=== PATIENT | female | born 1970 | race Caucasian/White ===

== ENCOUNTER → 2017-12-15 16:56 | Outpatient (CLI) | payer OTHER, SELFPAY ==
[2017-12-15 18:26] LABS: Anion Gap 6 (5-15); BUN 17 mg/dL (7-18); BUN/Creat Ratio 12.5 RATIO (10-20); Calcium,Total 8.7 mg/dL (8.5-10.1); Chloride 103 mmol/L (98-107); Creatinine, Serum 1.36 mg/dL (0.55-1.02); EST Glomerular Filtration Rate 44 mL/min (>60); Est Glom Filt Rate - Afr Amer 53 mL/min (>60); Free T3 2.5 pg/mL (2.18-3.98); Glucose 97 mg/dL (74-106); Magnesium 2.2 mg/dL (1.6-2.6); Potassium 3.9 mmol/L (3.5-5.1); Sodium Level 136 mmol/L (136-145)
== END ==
PROVIDERS: Family Provider Internal Medicine; PCP Internal Medicine; Visit Provider Internal Medicine
DX: E23.0 Hypopituitarism (principal); R20.9 Unspecified disturbances of skin sensation
CPT/HCPCS: 80048; 83735; 84439; 84481

== ENCOUNTER → 2018-09-11 15:46 | Outpatient (CLI) | payer OTHER, SELFPAY ==
[2016-11-05 15:14] VITALS: BMI 22.4
--- NOTE | 2018-09-11 15:51 | RAD_ITS ---
STUDY: X-RAY CHEST REASON FOR EXAM: Female, 48 years old. Shortness of breath TECHNIQUE: PA and lateral views of the chest. COMPARISON: None. FINDINGS: There is hyperinflation of the lungs consistent with chronic obstructive lung disease (COPD). There is no demonstrated pleural abnormality. Normal size heart. Normal mediastinum and zaire. Normal visualized pulmonary arteries. Normal visualized aortic arch and descending thoracic aorta. Normal visualized thoracic spine. Normal visualized ribs, clavicles, and shoulders. There is no demonstrated abnormality of the visualized soft tissue structures of the upper abdomen. RAD/Chest PA and Lateral IMPRESSION: Findings suggestive of COPD. No acute cardiopulmonary disease process is noted. Electronically Signed: Keith Mondragon MD at 16:16 EST , Service support ,
--- OUTSIDE RECORDS SUMMARY | 2018-11-16 05:36 | XMS RPT_ITS | Continuity of Care Document ---
:1970 Author Organization [facility] Address [address] [facility] [address] [place] [address] Phone Care Team Providers Name Role Phone Galileo GARCIA, Shanika Goldstein Unavailable Joy Sandra Unavailable Valentin Pérez Unavailable Dafne Vail Unavailable JUANA Griffin Unavailable Unavailable Latrice Sharma Unavailable Unavailable Lloyd Zuniga Unavailable Unavailable Mattie Newell Unavailable Unavailable Mckenzie Cobian Unavailable Unavailable Unavailable Unavailable Problems Name Dates Details Alterations of sensations (R20.9, 782.0) Comments: whole body numbness. Status: Active Anemia (D64.9, 285.9) Status: Active Anxiety (F41.9, 300.00) Comments: increase Wellbutrin helped at this pint. not think need to add SSRI right now anxiety controlled. not ready to see counselor. Status: Active Dehydration (E86.0, 276.51) Comments: working outside, not drink, she also takes watr pill probably more than needs because worry about weight Status: Active Deliveries (Parity) Comments: 1 Status: Active Depressive disorder (F32.9, 311) Comments: wellbutrin stable gdoing well Status: Active Encounter for screening mammogram for malignant neoplasm of breast (Z12.31, V76.12) Status: Active Headache in front of head (R51, 784.0) Comments: better now Status: Active History of bulimia (Z86.59, V11.8) Status: Active History of multiple sclerosis (Z86.69, V12.49) Status: Active Other specified cardiac dysrhythmias (I49.8, 427.89) Status: Active Other speech disturbance (R47.89, 784.59) Comments: now better. 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 olive boyd labs done recently good. and will follow up with him. Status: Active Pregnancies () Comments: 1 Status: Active Renal insufficiency (N28.9, 593.9) Comments: from water pill better due recheck Status: Active SOB (shortness of breath) (R06.02, 786.05) Status: Active Stye (H00.019, 373.11) Status: Active Unspecified Diagnosis Status: Active Unspecified Diagnosis Status: Active Weakness (R53.1, 780.79) Status: Active Medications Name Dates Details Aranelle 0.5/1/0.5-35 MG-MCG Oral Tablet uad Tablet qd for 90 days Quantity: 3 {Package} Refills: 3 Ordered:15-Jul-2018 Anjum NUR Nava Start : 15-Jul-2018 Active CORTEF, 5MG (PO Tab) 2 in am 1/2 at hs Tablet uad for 0 days Quantity: 90 {Tablet} Refills: 3 Ordered:21-Apr-2007 JUANA Griffin Start : 21-Apr-2007 Active Comments:FARZAD no generics please HydroCHLOROthiazide 25 MG Oral Tablet 1 (one) Tablet QOD prn for 0 days Quantity: 40 {Tablet} Refills: 1 Ordered:11-Aug-2018 Galileo GARCIA, Shanika Vasquez MD Start : 11-Aug-2018 Active POTASSIUM CHLORIDE ER, 20MEQ (Oral Tablet Extended Release) 1 (one) Tablet ER Tablet ER daily for 2 weeks then prn with hctz for 0 days Quantity: 30 {Tablet} Refills: 3 Ordered:24-Jun-2014 Halima Gonzales LPN Start : 24-Jun-2014 Active Synthroid 88 MCG Oral Tablet 1 Tablet qd for 0 days Quantity: 90 {Tablet} Refills: 3 Ordered:11-Sep-2017 Galileo GARCIA, Shanika Vasquez MD Start : 11-Sep-2017 Active Dispense as Written Valtrex 1 GM Oral Tablet 1 (one) Tablet Tablet bid for 5 days for 0 days Quantity: 10 {Tablet} Refills: 3 Ordered:17-Feb-2017 Shanika Peralta MD, MD, Dana M Start : 17-Feb-2017 Active Wellbutrin XL 150 MG Oral Tablet Extended Release 24 Hour 1 (one) Tablet qd for 0 days Quantity: 90 {Tablet} Refills: 1 Ordered:11-Aug-2018 Shanika Peralta MD, MD, Dana M Start : 11-Aug-2018 Active Wellbutrin XL 300 MG Oral Tablet Extended Release 24 Hour 1 Tablet ER 24HR qd for 0 days Quantity: 90 {Tablet} Refills: 1 Ordered:11-Aug-2018 Shanika Peralta MD, MD, Dana M Start : 11-Aug-2018 Active Zithromax Z-Elmer 250 MG Oral Tablet 1 (one) Tablet as directed for 0 days Quantity: 1 {Package} Refills: 0 Ordered:27-Jan-2018 Lloyd Zuniga Start : 27-Jan-2018 Active Astepro 0.15 % Nasal Solution 1 (one) Solution 1 sopray each nostril daily for 0 days Quantity: 1 {Each} Refills: 2 Ordered:18-Mar-2017 JUANA Griffin Start : 07-Jun-2016 End : 18-Mar-2017 Inactive ATIVAN, 0.5MG (Oral Tablet) 1 q 6 hours prn for 0 days Refills: 0 Ordered:02-Oct-2010 JUANA Griffin End : 02-Oct-2010 Inactive BETAMETHASONE VALERATE, 0.1% (External Cream) apply to affected areas Cream as needed for 0 days Refills: 3 Ordered:13-Apr-2007 JUANA Griffin Start : 13-Apr-2007 End : 10-Jul-2009 Inactive Comments:Medication taken as needed. dispense 45 grams BIAXIN XL PAC, 500MG (Oral Tablet Extended Release 24 Hour) 2 (two) Tablet daily for infection for 14 days Quantity: 28 {Tablet_ER_24HR} Refills: 0 Ordered:16-Nov-2012 Shanika Peralta MD, MD, Dana M Start : 16-Aug-2012 End : 30-Aug-2012 Inactive CHERATUSSIN AC, 100-10MG/5ML (Oral Solution) 1 (one) Teaspoon qhs prn for 0 days Quantity: 6 {Ounce} Refills: 0 Ordered:09-Jun-2015 JUANA Griffin Start : 28-Nov-2014 End : 09-Jun-2015 Inactive CIPRO, 500MG (Oral Tablet) 1 (one) Tablet BID for 0 days Quantity: 14 {Tablet} Refills: 0 Ordered:03-Mar-2009 JAUNA Griffin Start : 03-Mar-2009 End : 10-Jul-2009 Inactive Denavir 1 % External Cream uad Cream prn for 0 days Quantity: 1 {Cream} Refills: 4 Ordered:18-Mar-2017 JUANA Griffin Start : 11-Jul-2016 End : 18-Mar-2017 Inactive Famciclovir 500 MG Oral Tablet 1 (one) Tablet Every 8 hours for 5 days Quantity: 15 {Tablet} Refills: 0 Ordered:08-Jul-2016 Shanika Peralta MD, MD, Shanika Goldstein Start : 08-Jul-2016 End : 13-Jul-2016 Inactive KEFLEX, 500MG (Oral Capsule) 1 (one) Capsule three times daily for 10 days Quantity: 30 {Capsule} Refills: 0 Ordered:24-Feb-2012 Shanika Peralta MD, MD, Shanika Goldstein Start : 11-Nov-2011 End : 21-Nov-2011 Inactive JACLYN, 0.5/1/0.5-35MG-MCG (Oral Tablet) 1 Tablet qd as directed for 0 days Quantity: 1 {Package} Refills: 0 Ordered:24-Jun-2014 JUANA Griffin Start : 02-Jul-2013 End : 24-Jun-2014 Inactive LEVAQUIN, 500MG (Oral Tablet) 1 (one) Tablet Daily for 10 days Quantity: 10 {Tablet} Refills: 0 Ordered:15-Oct-2007 Jessie Corbin CNP Start : 15-Oct-2007 End : 06-Nov-2007 Inactive LEVAQUIN, 750MG (Oral Tablet) 1 Tablet qd for 0 days Quantity: 5 {Tablet} Refills: 0 Ordered:30-May-2014 JUANA Griffin Start : 21-Aug-2011 End : 30-May-2014 Inactive MOTRIN, 600MG (Oral Tablet) 1 Tablet tid/prn for 0 days Quantity: 30 {Tablet} Refills: 0 Ordered:13-Aug-2007 JUANA Griffin Start : 13-Aug-2007 End : 10-Jul-2009 Inactive NASACORT AQ, 55MCG/ACT (Nasal Aerosol Solution) 2 (two) Aerosol Soln Daily for 0 days Quantity: 1 {Aerosol_Soln} Refills: 3 Ordered:02-Oct-2010 JUANA Griffin Start : 30-Sep-2006 End : 02-Oct-2010 Inactive NORGESTIM-ETH ESTRAD TRIPHASIC, 0.18/0.215/0.25MG-35 MCG (Oral Tablet) 1 Tab qd for 30 days Quantity: 30 {Package(s)} Refills: 3 Ordered:24-Jun-2014 JUANA Griffin Start : 18-Jan-2012 End : 24-Jun-2014 Inactive ProAir HFA 108 (90 Base) MCG/ACT Inhalation Aerosol Solution 1 (one) Puff Puff tid prn for 0 days Quantity: 1 {Inhaler} Refills: 0 Ordered:18-Mar-2017 JUANA Griffin Start : 28-Nov-2014 End : 18-Mar-2017 Inactive PROMETHAZINE HCL, 12.5MG (Oral Tablet) 1 Tablet Every 6 hours for nausea and vomiting for 0 days Quantity: 10 {Tablet} Refills: 0 Ordered:24-Jun-2014 JUANA Griffin Start : 01-Nov-2011 End : 24-Jun-2014 Inactive Saizen 5 MG Injection Solution Reconstituted uad For Solution q hs for 0 days Quantity: 30 {Tablet} Refills: 0 Ordered:18-Mar-2017 JUANA Griffin Start : 24-Jun-2014 End : 18-Mar-2017 Inactive Comments:growth hormone Skelaxin 800 MG Oral Tablet 1 (one) Tablet Tablet every six hours, as needed for 0 days Quantity: 20 {Tablet} Refills: 2 Ordered:18-Mar-2017 JUANA Griffin Start : 02-Apr-2016 End : 18-Mar-2017 Inactive Comments:Medication taken as needed. SKELAXIN, 800MG (Oral Tablet) Tablet TID/PRN for 0 days Refills: 0 Ordered:06-Nov-2006 JUANA Griffin Start : 06-Nov-2006 End : 10-Jul-2009 Inactive TAMIFLU, 75MG (Oral Capsule) 1 (one) Capsule bid for 5 days Quantity: 10 {Capsule} Refills: 0 Ordered:28-Nov-2014 Nava Valero DO Start : 28-Nov-2014 End : 03-Dec-2014 Inactive Tylenol with Codeine #3 300-30 MG Oral Tablet 1 Tablet Tablet 1-2 q6h prn for 0 days Quantity: 20 {Tablet} Refills: 0 Ordered:30-Jul-2016 JUANA Griffin Start : 16-Nov-2012 End : 30-Jul-2016 Inactive Comments:BD called to BMT - see patient message WELLBUTRIN SR, 150MG (Oral Tablet Extended Release 12 Hour) 1 Tablet ER 12HR BID for 0 days Quantity: 60 {Tablet_ER_12HR} Refills: 5 Ordered:30-Sep-2006 Halima Gonzales LPN Start : 30-Sep-2006 End : 13-Apr-2007 Inactive XENICAL, 120MG (Oral Capsule) Capsule 1 (one) Capsule three times daily with food for 30 days Quantity: 90 {Capsule} Refills: 1 Ordered:24-Jun-2014 JUANA Griffin Start : 27-Jan-2014 End : 24-Jun-2014 Inactive XENICAL, 120MG (Oral Capsule) 1 (one) Capsule 1 (one) Capsule three times daily with food prn for 30 days Quantity: 45 {Capsule} Refills: 0 Ordered:17-Dec-2013 Galileo GARCIA, Shanika Mednez MD, Shanika Goldstein Start : 17-Dec-2013 End : 16-Jan-2014 Inactive XENICAL, 120MG (Oral Capsule) Capsule TID/PRN for 0 days Quantity: 90 {Capsule} Refills: 1 Ordered:17-Nov-2006 JUANA Griffin Start : 17-Nov-2006 End : 10-Jul-2009 Inactive XENICAL, 120MG (Oral Capsule) Capsule 1 (one) Capsule three times daily with food for 30 days Quantity: 90 {Capsule} Refills: 1 Ordered:24-Jun-2014 JUANA Griffin Start : 22-Jun-2014 End : 24-Jun-2014 Inactive XENICAL, 120MG (Oral Capsule) Capsule 1 (one) Capsule three times daily with food for 30 days Quantity: 90 {Capsule} Refills: 1 Ordered:24-Jun-2014 JUANA Griffin Start : 16-Dec-2013 End : 24-Jun-2014 Inactive AUGMENTIN, 875-125MG (Oral Tablet) 1 (one) Tablet bid for 14 days Quantity: 28 {Tablet} Refills: 2 Ordered:15-Oct-2007 Jessie Corbin CNP Start : 15-Oct-2007 End : 15-Oct-2007 Discontinued FLEXERIL, 10MG (Oral Tablet) 1 Tablet Tablet q8h prn for 0 days Quantity: 20 {Tablet} Refills: 0 Ordered:18-Mar-2017 Galileo GARCIA, Shanika Mendez MD, Shanika Goldstein Start : 16-Nov-2012 End : 18-Mar-2017 Discontinued Comments:This order discontinued per [facility]. POTASSIUM CHLORIDE BOONE CR, 20MEQ (Oral Tablet Extended Release) 1 (one) Tablet ER take when take water pill for 0 days Quantity: 30 {Tablet_ER} Refills: 4 Ordered:30-Sep-2006 Halima Gonzales LPN Start : 30-Sep-2006 End : 30-Sep-2006 Discontinued TRI-NORINYL (PO Tab) uad qd for 0 days Refills: 0 Ordered:24-Jun-2014 JUANA Griffin End : 24-Jun-2014 Discontinued Comments:This order discontinued per [facility]. Allergies and Adverse Reactions Name Dates Details floroquinalone (Allergy) Status: Active Penicillins (Allergy) Status: Active Comments: ? Past Medical History Name Dates Details Abdominal pain, acute, left lower quadrant (R10.32, 789.04) Comments: had for about 6 months. seen account manager relief, pelvic us good. will need ct scan and colonscopy Status: Inactive as of 31-Jul-2009 Abnormal blood creatinine level (R79.9, 790.99) Status: Inactive as of 18-Mar-2017 Acute sinusitis (J01.90, 461.9) Status: Inactive as of 22-Feb-2009 Bronchitis, acute (J20.9, 466.0) Status: Inactive as of 30-May-2014 Bulimia (F50.2, 307.51) Comments: rare;ly revert back at times. done therapy still body image isseus and works on this. Status: Resolved as of 26-Aug-2017 Chronic sinusitis (J32.9, 473.9) Status: Inactive as of 30-May-2014 Contraceptive management (Z30.9, V25.9) Status: Inactive as of 25-Natanael-2017 Cough (R05, 786.2) Status: Inactive as of 30-Jul-2016 Dizziness (R42, 780.4) Comments: think related c spine tightness could be inner ear. try bonine, no neuro changes told to call if diplopia, bad headache, syncope, unilateral weakness or paresthesia, gait or speech change. if lighthead and nausea more then double cortisone. will treat neck start masssage, heat, nsaids m relx not better then ENG Status: Inactive as of 22-Feb-2009 Dysuria (R30.0, 788.1) Status: Inactive as of 10-Jul-2009 Electrolyte and fluid disorders not elsewhere classified (276.9) Status: Inactive as of 30-Jul-2016 Family history of ischemic heart disease (Z82.49, V17.3) Status: Inactive as of 22-Feb-2009 Fever and chills (R50.9, 780.60) Status: Inactive as of 30-Jul-2016 hematuria- was near cycle- get followua Status: Inactive as of 22-Feb-2009 Hypokalemia (E87.6, 276.8) Comments: use water pill with menses. 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 this has kept her stable and not going back to bulemia. she does not abuse and does otc mvi. 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) Status: Inactive as of 30-May-2014 Sinoatrial node dysfunction (I49.5, 427.81) Comments: related to severe hypoglycemia event 2003 and adreanl crisis no reoccurence Status: Resolved as of 24-Jun-2014 Sinus pain (J34.89, 478.19) Comments: not seem infected will add nsal spray Status: Inactive as of 18-Mar-2017 SINUSITIS, ACUTE NEC (461.8) Status: Inactive as of 30-May-2014 Unspecified convulsions (R56.9, 780.39) Comments: related to adrenal crisis and hypoglycemia Status: Resolved as of 24-Jun-2014 Unspecified Diagnosis Status: Inactive as of 30-May-2014 Unspecified Diagnosis Status: Inactive as of 30-May-2014 Unspecified Diagnosis Status: Inactive as of 18-Mar-2017 Unspecified protein-calorie malnutrition (263.9) Status: Inactive as of 18-Mar-2017 Urinary tract infection, site not specified (N39.0, 599.0) Status: Inactive as of 31-Jul-2009 Visual changes (H53.9, 368.9) Status: Inactive as of 18-Mar-2017 WWV V70.0 tigrover Comments: 8-14 just done. good. cholesterol good -14. tetanus due 2015 Status: Inactive as of 18-Mar-2017 Procedures Date Value Details 11-Sep-2018 Chest PA and Lateral Result: Comments: See Note; NOTES: [facility] Imaging Services [address] [place] [address] Chest PA and Lateral MR#: [id number] Acct: [id number] Name: MELANIE ABRAMS Rep #: [id number] : 1970 F 48 From: Keith Mondragon MD PCP: Shanika Peralta MD Status: REG CLI Study: Chest PA and Lateral Date of Exam: 09/11/18 Exam# [id number] Ordering Dr: Shanika Peralta MD STUDY: X-RAY CHEST REASON FOR EXAM: Female, 48 years old. Shortness of breath TECHNIQUE: PA and lateral views of the chest. COMPARISON: None. FINDINGS: There is hyperinflation of the lungs consistent with chronic obstructive lung disease (COPD). There is no demonstrated pleural abnormality. Normal size heart. Normal mediastinum and zaire. Normal visualized pulmonary arteries. No rmal visualized aortic arch and descending thoracic aorta. Normal visualized thoracic spine. Normal visualized ribs, clavicles, and shoulders. There is no demonstrated abnormality of the visualized so ft tissue structures of the upper abdomen. RAD/Chest PA and Lateral IMPRESSION: Findings suggestive of COPD. No acute cardiopulmonary disease pro cess is noted. Electronically Signed: Keith Mondragon MD at 16:16 EST , Service support , CC: Shanika Peralta MD Political Cartoonist: Signed 26-Nov-2016 Emergency Department Summary Result: Comments: See Note; NOTES: [facility] Medical Records Department [address] [place] [address] Emergency Department Summary MR#: [id number] Acct: [id number] Name: MELANIE ABRAMS Rep #: [id number] : 1970 46 From: Luca Dean MD PCP: Shanika Peralta MD Status: DEP ER DATE OF SERVICE: 11/05/2016 HISTORY OF PRESENT ILLNESS: This is a 46-year-old woman who was sent to the ER because of weakness, paresthesia, and difficulty with speech. She states she has dry mouth. She was sent by her PCP, Dr. Peralta. Onset of symptoms varied. The patient states headache started at 0600, improved and then got worse at 10:00 a.m. The patient reports paresthesia, weakness and slurred speech that started approximately 1300. She presently complains of a headache. She denies any visual, ocul ar or auditory symptoms. She denies any motor weakness or problems with balance. She was sent to the ER for an MRI. PAST MEDICAL HISTORY: Panhypopituitarism. REVIEW OF SYSTEMS: Remarkable for headache , weakness, paresthesia, upper and lower extremity. PHYSICAL EXAMINATION: GENERAL: Remarkable for heart rate of 111. HEENT: Unremarkable. Funduscopic exam is normal with no papilledema and normal cup t o disk ratio. NECK: Supple with no carotid bruits. LUNGS: Clear to auscultation. HEART: Regular. ABDOMEN: Soft, nontender. NEUROLOGIC: She is alert. She is oriented x3. Motor is 5/5. Sensation is intact . DTRs are symmetric at 2+ with no clonus or Babinski. Cerebellar testing was normal. Gait was normal. Romberg test is negative. The patient does seem was somewhat anxious. EMERGENCY DEPARTMENT COURSE: Blood work was obtained and revealed a creatinine of 1.06. Coags normal. MRI was obtained and is normal. Case was discussed with Dr. Peralta. Dr. Peralta saw the patient in the ER. IMPRESSION: 1. Glob al paresthesia. 2. History of hypopituitarism. DISPOSITION: Discharge. MD Miryam Flower C: Shanika Peralta MD T: [facility] JOB: [id number] 11/26/16 1212 <Electronically signed by Luca Dean MD&#62 ; Date Luca Dean MD Cosigner Signature (If Indicated): Date CC: Shanika Peralta MD Date Dictated: 11/26/16 0754 Date Transcribed: 11/26/16753 Political Cartoonist: Signed 15-Nov-2016 Spine Cervical W/WO Contrast Result: Comments: See Note; NOTES: [facility] Imaging Services [address] [place] [address] Verdana 4d Spine Cervical W/WO Contrast MR#: [id number] Acct: [id number] Name: MELANIE ABRAMS Rep #: [id number] : 1970 F 46 From: Charlene Gupta MD PCP: Shanika Peralta MD Status: REG CLI Study: Spine Cervical W/WO Contrast Date of Exam: 11/15/16 Exam# [id number] Ordering Dr: Shanika Peralta MD STUDY: MRI CERVICAL SPINE WITH AND WITHOUT CONTRAST REASON FOR EXAM: Female, 46 years old. Episodes of numbness and tingling with cold feeling in arms. TECHNIQUE: Standardized fat and water weigh tyler pulse sequences were obtained in the sagittal and axial following I.V. administration of 7 ml of Gadavist contrast material. COMPARISON: None FINDINGS: Normal f oramen magnum and brainstem-cervical cord junction. Normal craniovertebral junction. Normal anterior atlantoaxial articulation. Normal odontoid process. There is straightening of the normal cervical lo rdosis. Normal vertebral bodies and posterior osseous elements. C2-3: Normal endplates. Normal disc height, signal and morphology. Normal central canal and intervertebral neural foramina. C3-4: There is a small focal central disc protrusion. Neural foramina are patent. There is no significant central acquired canal stenosis. C4-5: There is narrowing of this disc. There is a focal central disc protr usion which contacts the spinal cord. The left neural foramen is severely narrowed with potential nerve impingement. The right neural foramen is moderately narrowed. There is uncovertebral and facet carlin nt arthropathy. C5-6: There is narrowing of this disc. There is a left central broad disc protrusion. There are severe left-sided neural foraminal narrowing with uncovertebral joint hypertrophy. There is probable left-sided nerve impingement. The right neural foramen is moderately narrowed. There is mild central acquired canal stenosis. C6-7: There is narrowing of this disc. There is a mild disc bul ge and osteophyte complex. There is moderate bilateral neural foraminal narrowing with potential nerve impingement at the neural foramina at this level. There is no significant central acquired canal st enosis. C7-T1: Normal endplates. Normal disc height, signal and morphology. Normal central canal and intervertebral neural foramina. Normal cervical cord. There is no demonstrated cervical cord syrinx cavity. Normal visualized soft tissue structures. MRI/Spine Cervical W/WO Contrast IMPRESSION: Multilevel degenerative disc disease and degener ative arthropathy of the cervical spine with acquired canal stenosis, neural foraminal narrowing and potential nerve impingement, as described. Electronically Signed: Charlene Gupta MD at 18:0 6 EDT , Service support [phone], CC: Shanika Peralta MD Political Cartoonist: Signed 05-Nov-2016 Discharge Instruction Result: Comments: See Note; NOTES: [facility] Medical Records Department [address] [place] [address] Discharge Instruction 11/05/16 1749 MR#: [id number] Acct: [id number] Name: Mara ABRAMS Rep #: [id number] : 1970 46 From: Luca Dean MD PCP: Shanika Peralta MD Status: REG ER ED Disposition - Plan for ED Patient: Disposition: Home or Assisted Living Chief Complaint: Numb/Tin g Instructions: ED Paraesthesias Referrals: Shanika Peralta MD [Primary Care Provider] - 1 Week What to do if you have Problems For any increased pain, shortness of breath, bleeding, nausea or vomitin g, chest pain, or any unexpected problems, contact your Primary Care Provider. Call [facility] ([phone]) or report to the closest Emergency Room. Call 911 if necessary. 11/05/16 1751 &# 60;Electronically signed by Luca Dean MD> Date Luca Dean MD Cosigner Signature (If Indicated): Date CC: Shanika Peralta MD 05-Nov-2016 Brain W/WO Contrast Result: Comments: See Note; NOTES: [facility] Imaging Services [address] [place] [address] Verdana 4d Brain W/WO Contrast MR#: [id number] Acct: [id number] Name: MELANIE ABRAMS Rep #: [id number] : 1970 F 46 From: Anne Love MD PCP: Shanika Peralta MD Status: REG ER Study: Brain W/WO Contrast Date of Exam: 11/05/16 Exam# [id number] Ordering Dr: Luca Dean MD STUDY: MRI BRAI N WITH AND WITHOUT CONTRAST REASON FOR EXAM: Female, 46 years old. Right arm numbness since noon today. Prior pituitary tumor removed TECHNIQUE: Standardized multiplanar fat and water weighted pulse s equences were obtained. 5 ml of Gadavist contrast material was administered intravenously for the contrast portion of the examination. COMPARISON: None. FINDINGS: N ormal size of the ventricles and extra-axial spaces for the patient's age. Normal white matter tracts of the supratentorial brain. Normal bilateral basal ganglia. Normal thalami. There is no extra-axia l fluid accumulation. Normal flow voids within the major intracranial circulation suggesting patency by spin echo criteria. Normal venous enhancement. There is no enhancing intra-axial or extra-axial a bnormality. There is flattening of the pituitary gland consistent with prior surgery. Normal infundibular stalk, hypothalamus, and optic chiasm. Normal tectal plate and pineal gland. Normal midbrain, sabrina and medulla. Normal cerebellum. Normal basal cisterns. Normal bilateral temporal bones. Normal bilateral internal auditory canals. No demonstrated orbital abnormality, within the constraints of a routine brain study. Normal visualized paranasal sinuses. Normal calvarium and skull base. Normal visualized soft tissue structures. Normal visualized upper cervical spine. MRI/Brain W/WO Contrast IMPRESSION: Postsurgical changes in the pituitary gland. There is no evidence of recent ischemic lesion. There is no intracranial hemorrhage. Electro nically Signed: Anne Love MD at 17:22 EDT Tel , Service support [phone], CC: Shanika Peralta MD; Luca Dean MD Political Cartoonist: Signed 27-Sep-2016 Discharge Instruction Result: Comments: See Note; NOTES: [facility] Medical Records Department [address] [place] [address] Discharge Instruction 07/29/16 0144 MR#: [id number] Acct: [id number] Name: Mara ABRAMS Rep #: [id number] : 1970 46 From: Yahir Green MD PCP: Shanika Peralta MD Status: [facility] ER ED Disposition - Plan for ED Patient: Disposition: Home or Assisted Living Chief Complaint: Abd Pain Instructions: ED Abdominal Pain Unkn Cause, ED Food Poison Or Gastroenteritis Prescriptions: Ondansetron [Zofran Odt] 4 mg PO Q8H PRN PRN #7 tablet PRN Reason: Nausea Referrals: Shanika Peralta MD [ Primary Care Provider] - What to do if you have Problems For any increased pain, shortness of breath, bleeding, nausea or vomiting, chest pain, or any unexpected problems, contact your Primary Care Provider. Call [facility] ([phone]) or report to the closest Emergency Room. Call 911 if necessary. 09/27/16 0808 <Electronically signed by Yahir Green MD> Date __ Yahir Green MD Cosigner Signature (If Indicated): Date CC: Shanika Peralta MD 27-Sep-2016 Emergency Department Summary Result: Comments: See Note; NOTES: [facility] Medical Records Department [address] [place] [id number] Emergency Department Summary MR#: [id number] Acct: [id number] Name: MELANIE ABRAMS Rep #: [id number] : 1970 46 From: Yahir Green MD PCP: Shanika Peralta MD Status: [facility] ER DATE OF SERVICE: 07/29/2016 CHIEF COMPLAINT: Nausea, vomiting, epigastric abdominal discomfort. HIST ORY OF PRESENT ILLNESS: This 46-year-old female had a meal of fish, a salad etc. had similar. He denied the salad. She became acutely ill about 1-2 hours after eating, around 8 p.m. started havi ng epigastric pain, nausea, vomiting, no diarrhea, no melena, no hematemesis, has not been having any food intolerances lately or abdominal pain when she eats. Denies any prior abdominal surgeries. PHY SICAL EXAMINATION: GENERAL: A middle-aged white female. VITAL SIGNS: Stable, afebrile, does not look septic or toxic, no acute distress. HEENT: Unremarkable. NECK: Nontender. LUNGS: Clear, equal, symmet rical bilaterally. HEART: Regular rhythm. No murmur. ABDOMEN: Soft, mild epigastric tenderness. No rebound, guarding or rigidity. Normal bowel sounds. No peritoneal signs. No hernias or masses. Nondiste nded. No signs of obstruction. Both the right upper quadrant and right lower quadrants are completely nontender. There is no Herrera sign nor any McBurney's point tenderness. No peritoneal signs. EXTREMI TIES, BACK, SKIN, NEUROLOGIC: Unremarkable. A 46-year-old female with abdominal pain, nausea, vomiting, question is food poisoning versus gastroenteritis versus other. Labs, white count came back elev ated at 14.9, H and H 14 and 40, no bands. Electrolytes were unremarkable. Potassium of 3.3, normal gap. Creatinine of 1.3. Liver enzymes were normal. Lipase was normal. Repeat exam, she was treated wit h IV fluids, Zofran and Toradol, was still having some epigastric discomfort, was given Pepcid and GI cocktail. On repeat exam, she is doing much better currently at 0240. Abdomen is nontender without p eritoneal signs. She and I had a long discussion on food poisoning versus gastroenteritis versus the possibility of this being a new onset of gallbladder disease. IMPRESSION: 1. Abdominal pain, uncerta in etiology. 2. Nausea and vomiting secondary to either viral syndrome or food poisoning. PLAN: She will be discharged to home with Zofran for home. Return if worse and follow up with her primary care physician. MD Miryam Salcido C: Shanika Peralta MD T: NTS JOB: [id number] 09/27/16 0808 <Electronically signed by Yahir Green MD> Date ___ Yahir Green MD Cosigner Signature (If Indicated): Date CC: Shanika Peralta MD Date Dictated: 07/29/16238 Date Transcribed: 07/29/16238 Political Cartoonist: Signed 14-Jun-2016 Brain W/WO Contrast Result: Comments: See Note; NOTES: [facility] Imaging Services [address] [place] [address] Verdana 4d Brain W/WO Contrast MR#: [id number] Acct: [id number] Name: MELANIE ABRAMS Rep # : [id number] : 1970 F 46 From: Donis Kent MD PCP: Shanika Peralta MD Status: REG CLI Study: Brain W/WO Contrast Date of Exam: 06/14/16 Exam# [id number] Ordering Dr: Shanika Peralta MD STUDY: MR I BRAIN WITH AND WITHOUT CONTRAST REASON FOR EXAM: Female, 46 years old. Altered sensation along the eyes x1 week TECHNIQUE: Standardized multiplanar fat and water weighted pulse sequences were obtain ed. 6 ml of Gadavist contrast material was administered intravenously for the contrast portion of the examination. COMPARISON: None. FINDINGS: Normal size of the ve ntricles and extra-axial spaces for the patient's age. Normal white matter tracts of the supratentorial brain. Normal bilateral basal ganglia. Normal thalami. There is no extra-axial fluid accumulation . Normal flow voids within the major intracranial circulation suggesting patency by spin echo criteria. Normal venous enhancement. There is no enhancing intra- axial or extra-axial abnormality. Normal sella turcica, pituitary gland, infundibular stalk, optic chiasm and hypothalamus. Normal tectal plate and pineal gland. Normal midbrain, sabrina and medulla. Normal cerebellum. Normal basal cisterns. Nor mal bilateral temporal bones. Normal bilateral internal auditory canals. No demonstrated orbital abnormality, within the constraints of a routine brain study. Normal visualized paranasal sinuses. Gertrudis l calvarium and skull base. Normal visualized soft tissue structures. Normal visualized upper cervical spine. MRI/Brain W/WO Contrast IMPRESSION : Normal unenhanced and enhanced MRI of the brain. Electronically Signed: Donis Kent MD at 16:13 EDT , Service support [phone], CC: Shanika Peralta MD Political Cartoonist: Signed Family History Unknown Family Member Name Dates Details Family Members In General Comments: Thyroid disease Status: Active Social History Name Dates Details Alcohol Use Status: Active Caffeine Use Comments: rare cup coffee 2 x weekly Status: Active Current Work/Study Status Status: Active Exercise History Comments: Light Status: Active Living Situation Comments: Lives with spouse, Status: Active No Drug Use Status: Active Non Smoker/No Tobacco Use Status: Active Number of Child (age 0-17) Dependents Comments: 1 Status: Active Vital Signs Date Test Result Details :13 Temperature 97.9 f Comments: Method: Temporal Pulse 94 /min Comments: Pattern: Regular Respiration Rate 18 /min Comments: Pattern: Unlabored O2 SAT 98 % Comments: Room air BP Systolic 94 mm[Hg] Comments: Patient Position: Sitting; Cuff Location: Left Arm; Cuff Size: Standard BP Diastolic 60 mm[Hg] Comments: Patient Position: Sitting; Cuff Location: Left Arm; Cuff Size: Standard Weight 124 lb Height 60 in Body Mass Index Calculated 24.22 kg/m2 Body Surface Area Calculated 1.52 m2 :03 Temperature 97.6 f Comments: Method: Temporal Pulse 70 /min Comments: Pattern: Regular Respiration Rate 20 /min Comments: Pattern: Unlabored O2 SAT 98 % Comments: Room air BP Systolic 116 mm[Hg] Comments: Patient Position: Sitting; Cuff Location: Left Arm; Cuff Size: Standard BP Diastolic 74 mm[Hg] Comments: Patient Position: Sitting; Cuff Location: Left Arm; Cuff Size: Standard Weight 124 lb Height 60 in Body Mass Index Calculated 24.22 kg/m2 Body Surface Area Calculated 1.52 m2 [id number]-[id number]:16 Temperature 98.3 f Comments: Method: Tympanic Pulse 110 /min Comments: Pattern: Regular Respiration Rate 18 /min Comments: Pattern: Unlabored O2 SAT 95 % Comments: Room air BP Systolic 124 mm[Hg] Comments: Patient Position: Sitting; Cuff Location: Left Arm; Cuff Size: Standard BP Diastolic 82 mm[Hg] Comments: Patient Position: Sitting; Cuff Location: Left Arm; Cuff Size: Standard Weight 124 lb Height 60 in Body Mass Index Calculated 24.22 kg/m2 Body Surface Area Calculated 1.52 m2 :05 Temperature 98.7 f Comments: Method: Oral Pulse 102 /min Comments: Pattern: Regular Respiration Rate 17 /min O2 SAT 97 % Comments: Room air BP Systolic 112 mm[Hg] Comments: Patient Position: Sitting; Cuff Location: Left Arm; Cuff Size: Standard BP Diastolic 72 mm[Hg] Comments: Patient Position: Sitting; Cuff Location: Left Arm; Cuff Size: Standard Weight 124 lb Height 60 in Body Mass Index Calculated 24.22 kg/m2 Body Surface Area Calculated 1.52 m2 :22 Temperature 97.6 f Comments: Method: Temporal Pulse 72 /min Comments: Pattern: Regular Respiration Rate 18 /min Comments: Pattern: Unlabored BP Systolic 110 mm[Hg] Comments: Patient Position: Sitting; Cuff Location: Left Arm; Cuff Size: Standard BP Diastolic 70 mm[Hg] Comments: Patient Position: Sitting; Cuff Location: Left Arm; Cuff Size: Standard Weight 124 lb Height 60 in Body Mass Index Calculated 24.22 kg/m2 Body Surface Area Calculated 1.52 m2 :48 Temperature 97.6 f Comments: Method: Oral Pulse 68 /min Comments: Pattern: Regular Respiration Rate 18 /min Comments: Pattern: Unlabored BP Systolic 112 mm[Hg] Comments: Patient Position: Sitting; Cuff Location: Left Arm; Cuff Size: Standard BP Diastolic 70 mm[Hg] Comments: Patient Position: Sitting; Cuff Location: Left Arm; Cuff Size: Standard Weight 119 lb :44 Pulse 74 /min Comments: Pattern: Regular Respiration Rate 16 /min Comments: Pattern: Unlabored BP Systolic 114 mm[Hg] Comments: Patient Position: Sitting; Cuff Location: Left Arm; Cuff Size: Standard BP Diastolic 68 mm[Hg] Comments: Patient Position: Sitting; Cuff Location: Left Arm; Cuff Size: Standard Weight 0 lb Height 0 in Head Circumference 0.00 cm :51 Temperature 97.1 f Comments: Method: Oral Pulse 78 /min Comments: Pattern: Regular Respiration Rate 18 /min Comments: Pattern: Unlabored O2 SAT 99 % Comments: Room air BP Systolic 116 mm[Hg] Comments: Patient Position: Sitting; Cuff Location: Left Arm; Cuff Size: Standard BP Diastolic 76 mm[Hg] Comments: Patient Position: Sitting; Cuff Location: Left Arm; Cuff Size: Standard Weight 116 lb Height 0 in Head Circumference 0.00 cm :21 Temperature 97.7 f Comments: Method: Oral Pulse 74 /min Comments: Pattern: Regular Respiration Rate 20 /min Comments: Pattern: Unlabored BP Systolic 114 mm[Hg] Comments: Patient Position: Sitting; Cuff Location: Left Arm; Cuff Size: Standard BP Diastolic 70 mm[Hg] Comments: Patient Position: Sitting; Cuff Location: Left Arm; Cuff Size: Standard Weight 116 lb Height 0 in Head Circumference 0.00 cm :58 BP Systolic 114 mm[Hg] Comments: Patient Position: Supine; Cuff Location: Left Arm; Cuff Size: Standard BP Diastolic 72 mm[Hg] Comments: Patient Position: Supine; Cuff Location: Left Arm; Cuff Size: Standard Weight 0 lb Height 0 in Head Circumference 0.00 cm :57 Pulse 96 /min Comments: Pattern: Regular BP Systolic 100 mm[Hg] Comments: Patient Position: Sitting; Cuff Location: Left Arm; Cuff Size: Standard BP Diastolic 70 mm[Hg] Comments: Patient Position: Sitting; Cuff Location: Left Arm; Cuff Size: Standard Weight 0 lb Height 0 in Head Circumference 0.00 cm :56 Temperature 98 f Comments: Method: Oral Pulse 100 /min Comments: Pattern: Regular Respiration Rate 16 /min Comments: Pattern: Unlabored BP Systolic 102 mm[Hg] Comments: Patient Position: Standing; Cuff Location: Left Arm; Cuff Size: Standard BP Diastolic 70 mm[Hg] Comments: Patient Position: Standing; Cuff Location: Left Arm; Cuff Size: Standard Weight 0 lb Height 0 in Head Circumference 0.00 cm :25 Temperature 98.1 f Comments: Method: Oral Pulse 88 /min Comments: Pattern: Regular Respiration Rate 16 /min Comments: Pattern: Unlabored BP Systolic 98 mm[Hg] Comments: Patient Position: Sitting; Cuff Location: Left Arm; Cuff Size: Standard BP Diastolic 70 mm[Hg] Comments: Patient Position: Sitting; Cuff Location: Left Arm; Cuff Size: Standard Weight 123.3125 lb Height 0 in Head Circumference 0.00 cm :50 Temperature 98.4 f Comments: Method: Oral Respiration Rate 16 /min Comments: Pattern: Undefined BP Systolic 108 mm[Hg] Comments: Patient Position: Sitting; Cuff Location: Undefined; Cuff Size: Undefined BP Diastolic 62 mm[Hg] Comments: Patient Position: Sitting; Cuff Location: Undefined; Cuff Size: Undefined Weight 0 lb Height 0 in Head Circumference 0.00 cm Results Date Description Value Details :59 Basic Metabolic Profile (BMP) Comments: [facility] [address] [place], [place], [phone] GAP 6 (Normal) Range: 5-15 CO2 27.0 mmol/L (Normal) Range: 21.0-32.0 CL 103 mmol/L (Normal) Range: 98-107 K 3.9 mmol/L (Normal) Range: 3.5-5.1 NA 136 mmol/L (Normal) Range: 136-145 CA 8.7 mg/dL (Normal) Range: 8.5-10.1 BUN/CRE 12.5 {RATIO} (Normal) Range: 10-20 EST GFR - AA 53 mL/min (Abnormal) Comments: GFR Calc EST GFR 44 mL/min (Abnormal) Comments: Non- GFR Calc CREAT,SERUM 1.36 mg/dL (Abnormal) Range: 0.55-1.02 Comments: The validity of the calculated GFR AND GFRAA in patients over70 years has not been determined. Clinical correlation isessential. BUN 17 mg/dL (Normal) Range: 7-18 GLU 97 mg/dL (Normal) Range: 74-106 Comments: Please note revised GLUCOSE reference range byzekwhac49/02/2018. 04-Caf-429120:59 Free T3 Comments: [facility] [address] [place], [place], [phone] FREE T3 2.5 pg/mL (Normal) Range: 2.18-3.98 34-Fdd-303746:59 Magnesium Comments: [facility] [address] [place], [place], [phone]) MG 2.2 mg/dL (Normal) Range: 1.6-2.6 59-Vdj-660461:59 T4 Free Direct Comments: [facility] [address] [place], [place], [phone] T4 FREE DIRECT 1.20 ng/dL (Normal) Range: 0.76-1.46 36-Beu-325791:52 Urinalysis, Office ([id number]) UA - LEUKOCYTE ESTERASE Trace (Normal) UA - NITRITE Negative (Normal) URINE UROBILINGN JOHN TIMED 2 mg/dL (Normal) UA - PROTEIN Negative mg/dL (Normal) UA - PH 7.0 (Normal) UA - BLOOD Hemolyzed Small (Normal) UA - SPECIFIC GRAVITY 1.000 (Normal) UA - KETONES Negative mg/dL (Normal) UA - BILIRUBIN Negative (Normal) UA - GLUCOSE Negative (Normal) 21-Aty-688363:29 CBC WITH MANUAL DIFF (18948) Comments: PATIENT NOT FASTINGPERFORMED BY: [facility] Bpvnae9796 [facility] [id number] Immature Grans (Abs) 0.0 {x10E3/uL} (Normal) Range: 0.0-0.1 Immature Granulocytes 0 % (Normal) Baso (Absolute) 0.0 {x10E3/uL} (Normal) Range: 0.0-0.2 Eos (Absolute) 0.5 {x10E3/uL} (Abnormal) Range: 0.0-0.4 Monocytes(Absolute) 0.6 {x10E3/uL} (Normal) Range: 0.1-0.9 Lymphs (Absolute) 2.4 {x10E3/uL} (Normal) Range: 0.7-3.1 Neutrophils (Absolute) 2.0 {x10E3/uL} (Normal) Range: 1.4-7.0 Basos 1 % (Normal) Eos 8 % (Normal) Monocytes 11 % (Normal) Lymphs 44 % (Normal) Neutrophils 36 % (Normal) Platelets 321 {x10E3/uL} (Normal) Range: 150-379 RDW 13.2 % (Normal) Range: 12.3-15.4 MCHC 33.5 g/dL (Normal) Range: 31.5-35.7 MCH 29.9 pg (Normal) Range: 26.6-33.0 MCV 89 fL (Normal) Range: 79-97 Hematocrit 40.3 % (Normal) Range: 34.0-46.6 Hemoglobin 13.5 g/dL (Normal) Range: 11.1-15.9 RBC 4.52 {x10E6/uL} (Normal) Range: 3.77-5.28 WBC 5.5 {x10E3/uL} (Normal) Range: 3.4-10.8 35-Eak-509077:29 Metabolic Panel, Comprehensive Comments: PATIENT NOT FASTINGPERFORMED BY: [facility]87 [facility] [id number] ([id number]) ALT (SGPT) 12 [iU]/L (Normal) Range: 0-32 AST (SGOT) 18 [iU]/L (Normal) Range: 0-40 Alkaline Phosphatase, S 84 [iU]/L (Normal) Range: 39-117 Bilirubin, Total 0.6 mg/dL (Normal) Range: 0.0-1.2 A/G Ratio 1.4 (Normal) Range: 1.2-2.2 Globulin, Total 2.7 g/dL (Normal) Range: 1.5-4.5 Albumin, Serum 3.8 g/dL (Normal) Range: 3.5-5.5 Protein, Total, Serum 6.5 g/dL (Normal) Range: 6.0-8.5 Calcium, Serum 9.2 mg/dL (Normal) Range: 8.7-10.2 Carbon Dioxide, Total 25 mmol/L (Normal) Range: 18-29 Chloride, Serum 103 mmol/L (Normal) Range: 96-106 Potassium, Serum 4.1 mmol/L (Normal) Range: 3.5-5.2 Sodium, Serum 142 mmol/L (Normal) Range: 134-144 BUN/Creatinine Ratio 14 (Normal) Range: 9-23 eGFR If Africn Am 66 mL/min/1.73 (Normal) eGFR If NonAfricn Am 57 mL/min/1.73 (Abnormal) Creatinine, Serum 1.13 mg/dL (Abnormal) Range: 0.57-1.00 BUN 16 mg/dL (Normal) Range: 6-24 Glucose, Serum 76 mg/dL (Normal) Range: 65-99 :55 TSH (63114) Comments: PATIENT NOT FASTINGPERFORMED BY: [facility]6370 [facility] [id number] TSH 2.170 {uIU/mL} (Normal) Range: 0.450-4.500 :55 T4, FREE (THYROXINE) (35352) Comments: PATIENT NOT FASTINGPERFORMED BY: [facility]6370 [facility] [id number] T4,Free(Direct) 1.71 ng/dL (Normal) Range: 0.82-1.77 :09 Basic Metabolic Profile (BMP) Comments: [facility] [address] [place], [place], [phone] GAP 9 (Normal) Range: 5-15 CO2 27.0 mmol/L (Normal) Range: 21.0-32.0 CL 103 mmol/L (Normal) Range: 98-107 K 3.4 mmol/L (Abnormal) Range: 3.5-5.1 NA 139 mmol/L (Normal) Range: 136-145 CA 8.8 mg/dL (Normal) Range: 8.5-10.1 BUN/CRE 10.6 {RATIO} (Normal) Range: 10-20 EST GFR - AA 66 mL/min (Normal) Comments: GFR Calc EST GFR 55 mL/min (Abnormal) Comments: Non- GFR Calc CREAT,SERUM 1.13 mg/dL (Abnormal) Range: 0.55-1.02 Comments: The validity of the calculated GFR AND GFRAA in patients over70 years has not been determined. Clinical correlation isessential. BUN 12 mg/dL (Normal) Range: 7-18 GLU 77 mg/dL (Normal) Range: 70-110 :09 Magnesium Comments: [facility] [address] [place], [place], [phone](242) MG 2.3 mg/dL (Normal) Range: 1.8-2.4 :09 T4 Free Direct Comments: [facility] [address] [place], [phone] T4 FREE DIRECT 1.55 ng/dL (Abnormal) Range: 0.76-1.46 02-Mvv-150493:09 Thyroid Stim Hormone (TSH) Comments: [facility] [address] [place], [phone] TSH 0.58 {uIU/mL} (Normal) Range: 0.358-3.74 17-Ooy-638543:39 Basic Metabolic Profile (BMP) Comments: 'TROP' Serial specimen #1, #2, #3, or #4: [facility] [address] [place], [phone] GAP 8 (Normal) Range: 5-15 CO2 27.0 mmol/L (Normal) Range: 21.0-32.0 CL 109 mmol/L (Abnormal) Range: 98-107 K 3.5 mmol/L (Normal) Range: 3.5-5.1 NA 144 mmol/L (Normal) Range: 136-145 CA 8.5 mg/dL (Normal) Range: 8.5-10.1 BUN/CRE 10.4 {RATIO} (Normal) Range: 10-20 Estimated CRCL 46.62 ml/min (Normal) EST GFR - AA 71 mL/min (Normal) Comments: GFR Calc EST GFR 59 mL/min (Abnormal) Comments: Non- GFR Calc CREAT,SERUM 1.06 mg/dL (Abnormal) Range: 0.55-1.02 Comments: The validity of the calculated GFR AND GFRAA in patients over70 years has not been determined. Clinical correlation isessential. BUN 11 mg/dL (Normal) Range: 7-18 GLU 91 mg/dL (Normal) Range: 70-110 98-Hes-300621:39 CBC W/Diff, Automated Comments: [facility] [address] [place], [phone] Absolute Lymph 1.39 {X10_3/ul} (Normal) Range: 0.83-4.51 Absolute Neut 3.4 {X10_3/uL} (Normal) Range: 2.0-7.7 IM GRAN % 0.200 % (Normal) Range: 0.0-0.9 Comments: IG% - Immature Granulocytes (promyelocytes, myelocytes andmetamyelocytes) > 1% indicates that a LEFT SHIFT is Present. BASO% 0.6 % (Normal) Range: 0-1 EO% 0.8 % (Normal) Range: 0-5 MONO% 8.3 % (Normal) Range: 0-10 LY% 26.1 % (Normal) Range: 19-41 NEUT% 64.0 % (Normal) Range: 47-70 MPV 9.3 fL (Normal) Range: 6.2-12.0 PLT 309 K/mm3 (Normal) Range: 150-450 RDW SD 43.1 fL (Normal) Range: 35.1-43.9 RDW CV 13.1 % (Normal) Range: 11.6-14.6 MCHC 33.1 {g/gl} (Normal) Range: 32-36 MCH 30.0 pg (Normal) Range: 27.0-32.0 MCV 90.8 fL (Normal) Range: 81-99 HCT 39.3 % (Normal) Range: 37-47 HGB 13.0 g/dL (Normal) Range: 12.0-15.0 RBC 4.33 {M/mm3} (Normal) Range: 4.2-5.4 WBC 5.3 K/mm3 (Normal) Range: 4.4-11.0 :39 Partial Thromboplast Time Comments: [facility] [address] [place], [address] PTT 26.4 s (Normal) Range: 24.1-36.2 :39 Prothrombin Time w/INR Comments: [facility] [address] [place], [address] INR 1.0 (Normal) PROTIME 13.2 s (Normal) Range: 11.7-14.9 :39 Troponin-I Comments: 'TROP' Serial specimen #1, #2, #3, or #4: [facility] [address] [place], [place], [phone] TROPONIN-I < 0.02 ng/mL (Normal) Comments: TROPONIN-I EXPECTED VALUES <0.05 NEGATIVE 0.06 - 0.[address] > OR = 0.[address] 18-Vot-120729:32 Bedside Glucose Comments: [facility] LaboratoryPoint of [address] [place], [place] [address] BEDSIDE GLU 99 mg/dL (Normal) Range: 70-110 Comments: MANAGEMENT OF PATIENT CARE PER NURSING PROTOCOL :15 Basic Metabolic Profile (BMP) Comments: [facility] [address] [place], [address] GAP 9 (Normal) Range: 5-15 CO2 29.0 mmol/L (Normal) Range: 21.0-32.0 CL 101 mmol/L (Normal) Range: 98-107 K 3.3 mmol/L (Abnormal) Range: 3.5-5.1 NA 139 mmol/L (Normal) Range: 136-145 CA 8.9 mg/dL (Normal) Range: 8.5-10.1 BUN/CRE 10.1 {RATIO} (Normal) Range: 10-20 Estimated CRCL 35.55 ml/min (Normal) EST GFR - AA 52 mL/min (Abnormal) Comments: GFR Calc EST GFR 43 mL/min (Abnormal) Comments: Non- GFR Calc CREAT,SERUM 1.39 mg/dL (Abnormal) Range: 0.55-1.02 Comments: The validity of the calculated GFR AND GFRAA in patients over70 years has not been determined. Clinical correlation isessential. BUN 14 mg/dL (Normal) Range: 7-18 GLU 74 mg/dL (Normal) Range: 70-110 :15 CBC W/Diff, Automated Comments: [facility] [address] [place], [address] Absolute Lymph 2.99 {X10_3/ul} (Normal) Range: 0.83-4.51 Absolute Neut 10.4 {X10_3/uL} (Abnormal) Range: 2.0-7.7 IM GRAN % 0.300 % (Normal) Range: 0.0-0.9 Comments: IG% - Immature Granulocytes (promyelocytes, myelocytes andmetamyelocytes) > 1% indicates that a LEFT SHIFT is Present. BASO% 0.2 % (Normal) Range: 0-1 EO% 2.6 % (Normal) Range: 0-5 MONO% 6.8 % (Normal) Range: 0-10 LY% 20.1 % (Normal) Range: 19-41 NEUT% 70.0 % (Normal) Range: 47-70 MPV 9.8 fL (Normal) Range: 6.2-12.0 PLT 359 K/mm3 (Normal) Range: 150-450 RDW SD 43.8 fL (Normal) Range: 35.1-43.9 RDW CV 13.5 % (Normal) Range: 11.6-14.6 MCHC 34.5 {g/gl} (Normal) Range: 32-36 MCH 31.0 pg (Normal) Range: 27.0-32.0 MCV 89.9 fL (Normal) Range: 81-99 HCT 40.9 % (Normal) Range: 37-47 HGB 14.1 g/dL (Normal) Range: 12.0-15.0 RBC 4.55 {M/mm3} (Normal) Range: 4.2-5.4 WBC 14.9 K/mm3 (Abnormal) Range: 4.4-11.0 :15 Lipase Comments: [address], [id number] LIPASE 109 U/L (Normal) Range: 73-393 :15 Liver Profile Comments: [address], [id number] D BILI 0.23 mg/dL (Normal) Range: 0.00-0.30 T BILI 0.80 mg/dL (Normal) Range: 0.20-1.00 ALT 18 U/L (Normal) Range: 12-78 ALK P 105 U/L (Normal) Range: 45-117 AST 27 U/L (Normal) Range: 15-37 GLOB 4.0 g/dL (Abnormal) Range: 2.3-3.5 ALB 3.6 g/dL (Normal) Range: 3.4-5.0 T PROT 7.6 g/dL (Normal) Range: 6.4-8.2 :14 Rapid Flu (31342 x 2) Influenza A Ag positive B (Normal) :13 ACTH < 1.1 pg/mL (Abnormal) Range: 7.2-63.3 Comments: ACTH reference interval for samples collected between 7 and10 AM. :13 CMP Comments: DR. ARIAS ORDERED BMP, MG AND PHOS.DR. PERALTA ORDERED T3F, T4F, TSH, CORTISOL(FREE), ACTH,SOMATOMEDIN, DHEA, CMP GAP 8 (Normal) Range: 5-15 CO2 28.0 mmol/L (Normal) Range: 21.0-32.0 CL 101 mmol/L (Normal) Range: 98-107 K 3.9 mmol/L (Normal) Range: 3.5-5.1 NA 137 mmol/L (Normal) Range: 136-145 BIT 0.40 mg/dL (Normal) Range: 0.00-1.00 ALT 57 U/L (Normal) Range: 12-78 ALK 83 U/L (Normal) Range: 50-136 AST 32 U/L (Normal) Range: 15-37 CA 8.7 mg/dL (Normal) Range: 8.5-10.1 AG 1.0 {RATIO} (Normal) Range: 0.9-2.4 GLOB 3.4 g/dL (Normal) Range: 2.7-4.2 ALB 3.5 g/dL (Normal) Range: 3.4-5.0 TPROT 6.9 g/dL (Normal) Range: 6.4-8.2 BC 10.8 {RATIO} (Normal) Range: 10-20 GFRAA 63 mL/min (Normal) GFR 52 mL/min (Abnormal) CREAT 1.2 mg/dL (Abnormal) Range: 0.6-1.0 BUN 13 mg/dL (Normal) Range: 7-18 GLU 86 mg/dL (Normal) Range: 70-110 :13 DHEA < 0.2 ug/dL (Abnormal) Range: 60.9-337.0 :13 FT3 1.9 pg/mL (Abnormal) Comments: DR. ARIAS ORDERED BMP, MG AND PHOS.DR. PERALTA ORDERED T3F, T4F, TSH, CORTISOL(FREE), ACTH,SOMATOMEDIN, DHEA, CMP Range: 2.18-3.98 :13 MG 2.2 mg/dL (Normal) Comments: DR. ARIAS ORDERED BMP, MG AND PHOS.DR. PERALTA ORDERED T3F, T4F, TSH, CORTISOL(FREE), ACTH,SOMATOMEDIN, DHEA, CMP Range: 1.5-2.2 :13 MISC . (Normal) Comments: Note: Scanned image report to followfor further processing 11/18/11,RESULTS FAXED TO DR. PERALTA 11/18/11 0287 MARIO TELLO. Comments: Scanned image report available in PCI.See LAB REFERENCE RESULTS form. :13 PHOS 3.4 mg/dL (Normal) Comments: DR. ARIAS ORDERED BMP, MG AND PHOS.DR. PERALTA ORDERED T3F, T4F, TSH, CORTISOL(FREE), ACTH,SOMATOMEDIN, DHEA, CMP Range: 2.5-4.9 :13 SOMA 38 ng/mL (Abnormal) Range: 101-267 Comments: Performed at: [address] [id number] Director: Roberta Pandya MD, Phone: [phone] :[phone] T4F 1.18 ng/dL (Normal) Comments: DR. ARIAS ORDERED BMP, MG AND PHOS.DR. PERALTA ORDERED T3F, T4F, TSH, CORTISOL(FREE), ACTH,SOMATOMEDIN, DHEA, CMP Range: 0.76-1.46 :13 TSH 1.24 {uIU/mL} (Normal) Comments: DR. ARIAS ORDERED BMP, MG AND PHOS.DR. PERALTA ORDERED T3F, T4F, TSH, CORTISOL(FREE), ACTH,SOMATOMEDIN, DHEA, CMP Range: 0.358-3.74 :51 COMP METABOLIC CO2 27.0 mmol/L (Normal) Range: 21.0-32.0 GAP 7 (Normal) Range: 5-15 A/G 1.1 {RATIO} (Normal) Range: 0.9-2.4 ALB 4.0 g/dL (Normal) Range: 3.4-5.0 ALK P 91 U/L (Normal) Range: 50-136 ALT 24 U/L (Normal) Range: 12-78 AST 14 U/L (Abnormal) Range: 15-37 BUN/CRE 16.7 {RATIO} (Normal) Range: 10-20 CA 9.4 mg/dL (Normal) Range: 8.5-10.1 CL 102 mmol/L (Normal) Range: 98-107 EST GFR - AA 64 mL/min (Normal) GLOB 3.5 g/dL (Normal) Range: 2.7-4.2 K 4.1 mmol/L (Normal) Range: 3.5-5.1 NA 136 mmol/L (Normal) Range: 136-145 T BILI 0.50 mg/dL (Normal) Range: 0.00-1.00 T PROT 7.5 g/dL (Normal) Range: 6.4-8.2 BUN 20 mg/dL (Abnormal) Range: 7-18 CREAT,SERUM 1.2 mg/dL (Abnormal) Range: 0.6-1.0 EST GFR 53 mL/min (Abnormal) GLU 83 mg/dL (Normal) Range: 70-110 92-Rhr-153020:47 ABDOMEN/PELVIS WITH CONTRAST Radiology Report See Note (Normal) Comments: Exam Number: [id number] CLINICAL:Left lower quadrant pain. CT ABDOMEN WITH CONTRAST COMPARISON:CT abdomen and pelvis dated 04/17/04 TECHNIQUE:Transaxial imaging was performed post contrast ad ministration . The examination was performed with intravenous administration of 100 ml of Isovue-300 contrast material. FINDINGS:The visualized lower lungs are clear. The visualized heart is normal in size, morpho logy and position. The liver is normal in size and contour with normal enhancement, and without a demonstrated mass, cyst or dilated intrahepatic bile ducts. The spleen is normal size and contour with n ormal enhancement. Normal gallbladder. Normal visualized intra and extra hepatic bile ducts. The pancreas is normal without focal or diffuse enlargement, atrophy or pancreatic calcifications. Normal bi lateral adrenal glands. The right kidney is normal in size, location and morphology. The left kidney is normal in size, location and morphology. The visualized bilateral ureters are normal without a d emonstrated hydroureter or ureteral calculus. Normal retroperitoneum without lymphadenopathy or a mass lesion. Normal visualized distal esophagus and stomach. Normal visualized small intestine, without an obstruction or bowel wall edema. There are a few scattered colonic diverticula without evidence of acute diverticulitis. The region of the appendix is normal without a demonstrated appendicitis, fan endicolith or periappendiceal inflammation or mass. There is no peritoneal fluid. There is no demonstrated free peritoneal or extraluminal gas. Normal caliber of the abdominal aorta. Normal caliber of the inferior vena cava. Normal visualized osseous structures in the abdominal region. Mild subcutaneous fat stranding is noted in the lower anterior abdominal wall bilaterally which appears symmetric (series 2 images 48-59). CT PELVIS WITH CONTRAST COMPARISON:CT abdomen and pelvis dated 04/17/04 TECHNIQUE:Transaxial imaging was performed post contrast administration. The examination was performed w ith intravenous administration of 100 ml of Isovue-300 contrast material. FINDINGS:Normal bladder without demonstrated mass, wall thickening or calculus. Normal distal ureters. The uterus is normal in size and contour. Normal adnexal regions without a demonstrated ovarian or adnexal mass lesion. Previously noted free fluid in the pelvis has resolved. There is no demonstrated pelvic or inguinal lymph adenopathy. Normal loops of small intestines visualized within the pelvis. There are scattered sigmoid diverticula without evidence of acute diverticulitis. Normal visualized pelvic arteries and veins. Normal abdominal wall without a demonstrated hernia. Normal visualized osseous and soft tissue structures of the pelvis. IMPRESSION: Scattered colonic diverticula without evidence of acute diverticuliti s. Mild subcutaneous fat stranding in the lower anterior abdominal wall which is bilateral and symmetric. This likely represents a small amount of inflammation which may be related to recent trauma or injection. Resolution of free fluid in the pelvis. Reported By: PAVEL DELACRUZ M.D. 5-Blu-186122:55 DUPLEX ARTERIAL FLOW,LMT () Radiology Report See Note (Normal) Comments: Exam Number: [id number] PELVIC ULTRASOUND HISTORYLeft lower quadrant pain, right upper quadrant pain, right swelling. Transvaginal non pelvic ultrasound, transabdominal nonpelvic ultrasou nd and duplex arterial flow, limited were performed. High-resolution real- time sector images were obtained. The uterus isnormal in size measuring 7.3 x 2.4 x 3.1 cm. The endometrium measures1 mm in th ickness. There is an echolucent area within theendometrium. This is most likely to represent a small amount offluid. The collection measures 7 x 3 x 6 mm. The collection isrelatively elongated and a ppears most likely to represent free fluidin the endometrium rather than a gestational sac. The right ovarymeasures 1.7 x 0.8 x 1.2 cm. The left ovary measures 1.9 x 1 x 1.2cm. There are normal folli cles in both ovaries. There is normalvascular flow to both ovaries. There is no free fluid in cbpgeh-or-vic. IMPRESSION1. There is a small amount of fluid in the endometrial canal which maria teresa nonspec ific finding. 2. The ovaries are within normal limits.3. No free fluid is seen in the cul-de-sac. Reported By: YOEL NI M.D. 2-Vus-[id number]:30 TRANSVAGINAL NON-PREG US () Radiology Report See Note (Normal) Comments: Exam Number: [id number] PELVIC ULTRASOUND HISTORYLeft lower quadrant pain, right upper quadrant pain, right swelling. Transvaginal non pelvic ultrasound, transabdominal nonpelvic ultrasou nd and duplex arterial flow, limited were performed. High-resolution real- time sector images were obtained. The uterus isnormal in size measuring 7.3 x 2.4 x 3.1 cm. The endometrium measures1 mm in th ickness. There is an echolucent area within theendometrium. This is most likely to represent a small amount offluid. The collection measures 7 x 3 x 6 mm. The collection isrelatively elongated and a ppears most likely to represent free fluidin the endometrium rather than a gestational sac. The right ovarymeasures 1.7 x 0.8 x 1.2 cm. The left ovary measures 1.9 x 1 x 1.2cm. There are normal folli cles in both ovaries. There is normalvascular flow to both ovaries. There is no free fluid in wxdcrh-bt-bcm. IMPRESSION1. There is a small amount of fluid in the endometrial canal which maria teresa nonspec ific finding. 2. The ovaries are within normal limits.3. No free fluid is seen in the cul-de-sac. Reported By: YOEL NI M.D. 6-Yhx-[id number]:28 PELVIC (NON-PREG) (HP) Radiology Report See Note (Normal) Comments: Exam Number: [id number] PELVIC ULTRASOUND HISTORYLeft lower quadrant pain, right upper quadrant pain, right swelling. Transvaginal non pelvic ultrasound, transabdominal nonpelvic ultrasou nd and duplex arterial flow, limited were performed. High-resolution real- time sector images were obtained. The uterus isnormal in size measuring 7.3 x 2.4 x 3.1 cm. The endometrium measures1 mm in th ickness. There is an echolucent area within theendometrium. This is most likely to represent a small amount offluid. The collection measures 7 x 3 x 6 mm. The collection isrelatively elongated and a ppears most likely to represent free fluidin the endometrium rather than a gestational sac. The right ovarymeasures 1.7 x 0.8 x 1.2 cm. The left ovary measures 1.9 x 1 x 1.2cm. There are normal folli cles in both ovaries. There is normalvascular flow to both ovaries. There is no free fluid in pwbvig-dv-zou. IMPRESSION1. There is a small amount of fluid in the endometrial canal which maria teresa nonspec ific finding. 2. The ovaries are within normal limits.3. No free fluid is seen in the cul-de-sac. Reported By: YOEL NI M.D. 71-Nig-[id number]:29 Urinalysis, Office ([id number]) UA - BILIRUBIN Small (Normal) UA - BLOOD Hemolyzed Large (Normal) UA - GLUCOSE Negative (Normal) UA - KETONES Small mg/dL (Normal) UA - LEUKOCYTE ESTERASE Trace (Normal) UA - NITRITE Negative (Normal) UA - PH 6.0 (Normal) UA - PROTEIN 100 mg/dL (Normal) UA - SPECIFIC GRAVITY 1.025 (Normal) URINE UROBILINGN JOHN TIMED 2 mg/dL (Normal) 31-Kgk-57681:00 CULTURE, URINE URINE CULTURE See Note {CFU/mL} (Normal) Comments: COLONY COUNT <1000 ORGANISM 1: MIXED GRAM POSITIVE ORGANISMS 3-Lwx-754837:00 BMP BUN 12 mg/dL (Normal) Range: 7-18 BUN/CRE 10.0 {RATIO} (Normal) Range: 10-20 CA 9.7 mg/dL (Normal) Range: 8.5-10.1 CL 105 mmol/L (Normal) Range: 98-107 CO2 30.8 mmol/L (Normal) Range: 21.0-32.0 CREAT,SERUM 1.2 mg/dL (Abnormal) Range: 0.6-1.0 EST GFR 53 mL/min (Abnormal) EST GFR - AA 64 mL/min (Normal) GAP 7 (Normal) Range: 5-15 GLU 103 mg/dL (Normal) Range: 70-110 K 3.7 mmol/L (Normal) Range: 3.5-5.1 NA 143 mmol/L (Normal) Range: 136-145 6-Fhh-509210:00 MG 2.2 mg/dL (Normal) Range: 1.5-2.2 7-Qqu-085318:00 TSH 1.55 {uIU/mL} (Normal) Range: 0.34-4.82 84-Cck-754200:40 CORONALS,SAG,MULTI,OBL,3-D REC Radiology Report See Note (Normal) Comments: Exam Number: [id number] CT SCAN OF SINUSES AND FACIAL BONES HISTORYChronic sinusitis. Axial and coronal sections were obtained at 2.5-mm intervals. Thecurrent study is compared to the examination of Mar ust 2001. There has been a surgical procedure with discontinuity of the nasalseptum, absence of part of the floor of the sphenoid sinus and absenceof portions of the ethmoid sinuses, more marked on the left than theright. This procedure had been performed prior to the previousexamination. There is a 3-mm focal density in the left maxillarysinus medially. This may represent a small polyp or muco us retentioncyst. A 2nd 3-mm density is seen in the left maxillary sinuslaterally. This could also represent a polyp or mucous retentioncyst. The remainder of the maxillary sinuses is clear. There i s nosignificant thickening of the mucoperiosteal lining of frontal orethmoid sinuses. There is very minimal thickening of themucoperiosteal lining of the superior aspect of the sphenoid sinuses. The di vision between the sphenoid sinuses is incomplete alsorepresenting part of the postoperative change. The postoperativechanges are the same as seen 2002. Most of the mucosalchanges present A ugust 2001 have resolved. The middle meatus onboth sides are patent. The anterior nasal septum has a somewhatS-shaped configuration with areas of spurring and/or mucosalthickening on either side. No abnormality of the soft tissuestructures of the orbits is identified. The sella has a somewhatirregular contour unchanged from the previous examination. This maybe a postoperative finding as well. No lesion is seen in thevisualized portion of the brain parenchyma. IMPRESSION1. There are postoperative changes involving the nasal cavity, thesphenoid and ethmoid sinuses. The postoperative mustafa ges were alsopresent 2002. 2. There are two 3-mm polyps in the left maxillary sinus. Paranasalsinuses are otherwise clear.3. The visualized portion of the sella has an irregular configura tionwhich is unchanged from the previous study and may also be apostoperative finding. 4. No abnormality of the orbits is identified. Reported By: YOEL NI M.D. 28-Bpt-034796:40 SINUS/FACIAL BONE WITHOUT CONT Radiology Report See Note (Normal) Comments: Exam Number: [id number] CT SCAN OF SINUSES AND FACIAL BONES HISTORYChronic sinusitis. Axial and coronal sections were obtained at 2.5-mm intervals. Thecurrent study is compared to the examination of Mar us2001. There has been a surgical procedure with discontinuity of the nasalseptum, absence of part of the floor of the sphenoid sinus and absenceof portions of the ethmoid sinuses, more marked on the left than theright. This procedure had been performed prior to the previousexamination. There is a 3-mm focal density in the left maxillarysinus medially. This may represent a small polyp or muco us retentioncyst. A 2nd 3-mm density is seen in the left maxillary sinuslaterally. This could also represent a polyp or mucous retentioncyst. The remainder of the maxillary sinuses is clear. There i s nosignificant thickening of the mucoperiosteal lining of frontal orethmoid sinuses. There is very minimal thickening of themucoperiosteal lining of the superior aspect of the sphenoid sinuses. The di vision between the sphenoid sinuses is incomplete alsorepresenting part of the postoperative change. The postoperativechanges are the same as seen 2002. Most of the mucosalchanges present A ug2001 have resolved. The middle meatus onboth sides are patent. The anterior nasal septum has a somewhatS-shaped configuration with areas of spurring and/or mucosalthickening on either side. No abnormality of the soft tissuestructures of the orbits is identified. The sella has a somewhatirregular contour unchanged from the previous examination. This maybe a postoperative finding as well. No lesion is seen in thevisualized portion of the brain parenchyma. IMPRESSION1. There are postoperative changes involving the nasal cavity, thesphenoid and ethmoid sinuses. The postoperative mustafa ges were alsopresent 2002. 2. There are two 3-mm polyps in the left maxillary sinus. Paranasalsinuses are otherwise clear.3. The visualized portion of the sella has an irregular configura tionwhich is unchanged from the previous study and may also be apostoperative finding. 4. No abnormality of the orbits is identified. Reported By: YOEL NI M.D. 00-Nuw-574027:10 CULTURE, NOSE GRAM STAIN See Note (Normal) Comments: GRAM STAIN RARE EPITHELIAL CELLS 1+ GRAM POSITIVE COCCI NASAL CULTURE See Note (Normal) Comments: NORMAL KEN [place] GROWTH 1+ ORGANISM 1: COAG NEGATIVE STAPH 44-Jzo-41396:40 ACTH 4440 < 5 pg/mL (Abnormal) Range: 6-48 33-Nps-91331:40 CBCD BASO% 0.5 % (Normal) Range: 0-1 EO% 4.0 % (Normal) Range: 0-5 HCT 43.8 % (Normal) Range: 37-47 HGB 14.8 g/dL (Normal) Range: 12.0-16.0 LY% 25.8 % (Normal) Range: 19-41 MCH 30.9 pg (Normal) Range: 27.0-32.0 MCHC 33.7 g/dL (Normal) Range: 32-36 MCV 91.5 fL (Normal) Range: 81-99 MONO% 5.8 % (Normal) Range: 0-10 MPV 7.7 fL (Normal) Range: 6.5-12.0 NEUT% 63.9 % (Normal) Range: 47-70 PLT 331 K/mm3 (Normal) Range: 150-450 RBC 4.79 {M/mm3} (Normal) Range: 4.2-5.4 RDW 13.5 % (Normal) Range: 11.6-14.6 WBC 8.0 K/mm3 (Normal) Range: 4.4-11.0 :40 COMP METABOLIC A/G 1.1 {RATIO} (Normal) Range: 0.9-2.4 ALB 4.1 g/dL (Normal) Range: 3.4-5.0 ALK P 127 U/L (Normal) Range: 50-136 ALT 43 [iU]/L (Normal) Range: 30-65 AST 23 U/L (Normal) Range: 15-37 BUN 15 mg/dL (Normal) Range: 7-18 BUN/CRE 10.7 {RATIO} (Normal) Range: 10-20 CA 9.5 mg/dL (Normal) Range: 8.5-10.1 CL 100 mmol/L (Normal) Range: 98-107 CO2 27.2 mmol/L (Normal) Range: 21.0-32.0 Comments: Please Note Reference Interval Change CREAT,SERUM 1.4 mg/dL (Abnormal) Range: 0.6-1.0 GAP 9 (Normal) Range: 5-15 GLOB 3.8 g/dL (Normal) Range: 2.7-4.2 Comments: Please Note Reference Interval Change GLU 72 mg/dL (Normal) Range: 70-110 K 3.8 mmol/L (Normal) Range: 3.5-5.1 NA 136 mmol/L (Normal) Range: 136-145 T BILI 0.48 mg/dL (Normal) Range: 0.00-1.00 T PROT 7.9 g/dL (Normal) Range: 6.4-8.2 :40 INSULIN [id number] 80 ng/mL (Abnormal) Range: 109-284 :40 T3, FREE 68031 2.7 pg/mL (Normal) Range: 2.3-4.2 Comments: Performed At: [facility] [address] [id number] At: [facility] [id number] [place], [place] [id number] :[id number] T4 FREE,DIRECT 1.3 ng/dL (Normal) Range: 0.89-1.76 :40 TEST FR [id number] <0.2 pg/mL (Normal) Range: 0.0-2.2 :40 TSH 5.51 {uIU/mL} (Abnormal) Range: 0.34-4.82 :38 CBCD,SMEAR DIFF CELLS COUNTED 100 (Normal) EOS 3 % (Normal) Range: 0-5 HCT 38.5 % (Normal) Range: 37-47 HGB 13.0 g/dL (Normal) Range: 12.0-16.0 LYMPH 25 % (Normal) Range: 19-41 MCH 30.2 pg (Normal) Range: 27.0-32.0 MCHC 33.8 g/dL (Normal) Range: 32-36 MCV 89.4 fL (Normal) Range: 81-99 MONOCYTE 5 % (Normal) Range: 0-10 PLT 407 K/mm3 (Normal) Range: 150-450 PLT EST SeeNote (Normal) Comments: Result: ADEQUATE RBC 4.30 {M/mm3} (Normal) Range: 4.2-5.4 RDW 14.1 % (Normal) Range: 11.6-14.6 RED CELL MORPH SeeNote {NORMAL} (Normal) Comments: Result: NORM C&C SEGS 67 % (Normal) Range: 47-70 WBC 7.4 K/mm3 (Normal) Range: 4.4-11.0 :38 COMP METABOLIC A/G 1.0 {RATIO} (Normal) Range: 0.9-2.4 ALB 3.4 g/dL (Normal) Range: 3.4-5.0 ALK P 105 U/L (Normal) Range: 50-136 ALT 35 [iU]/L (Normal) Range: 30-65 AST 18 U/L (Normal) Range: 15-37 BUN 13 mg/dL (Normal) Range: 7-18 BUN/CRE 10.8 {RATIO} (Normal) Range: 10-20 CA 8.6 mg/dL (Normal) Range: 8.5-10.1 CL 103 mmol/L (Normal) Range: 98-107 CO2 26.6 mmol/L (Normal) Range: 22.0-29.0 CREAT,SERUM 1.2 mg/dL (Abnormal) Range: 0.6-1.0 GAP 8 (Normal) Range: 5-15 GLOB 3.5 g/dL (Normal) Range: 2.3-3.5 GLU 76 mg/dL (Normal) Range: 70-110 K 3.5 mmol/L (Normal) Range: 3.5-5.1 NA 138 mmol/L (Normal) Range: 136-145 T BILI 0.35 mg/dL (Normal) Range: 0.00-1.00 T PROT 6.9 g/dL (Normal) Range: 6.4-8.2 :38 COMPLETE UA BACTERIA 0 SEEN {/hpf} (Normal) BILIRUBIN URINE SeeNote (Normal) Comments: Result: NEGATIVE CLARITY CLEAR (Normal) COLOR YELLOW (Normal) GLUCOSE, UR SeeNote (Normal) Comments: Result: NEGATIVE KETONE UR SeeNote mg/dL (Normal) Comments: Result: NEGATIVE LEUK ESTERASE SeeNote (Normal) Comments: Result: NEGATIVE MUCUS, URINE 0 SEEN {/hpf} (Normal) NITRITE UR SeeNote (Normal) Comments: Result: NEGATIVE OCCULT BLOOD-UR SeeNote (Abnormal) Comments: Result: TRACE-LYSED pH UR 7.5 (Normal) Range: 5.0-8.0 PROT DIPSTX SeeNote (Normal) Comments: Result: NEGATIVE RBC-UA 0 SEEN {/hpf} (Normal) Range: 0-5 SP.GR. DIPSTX 1.020 (Normal) Range: 1.002-1.030 SQUAM EPI SeeNote {/hpf} (Normal) Range: 5-10 Comments: Result: 5-10 SEEN UROBILI 0.2 EU/dl (Normal) Range: 0.2 - 1.0 WBC 0 SEEN {/hpf} (Normal) Range: 0-5 :38 PFLIP CHOL 211 mg/dL (Abnormal) Comments: <200 mg/dL Desirable 200-240 mg/dL Borderline >240 mg/dL High Risk HDL 67 mg/dL (Normal) Comments: Reference Range HDL <40 mg/dL Low HDL Cholesterol HDL >or= 60 mg/dL High HDL Cholesterol LDL 125 mg/dL (Normal) Range: 0-130 TRIG 96 mg/dL (Normal) Comments: Serum Triglycerides Reference Interval Normal <150 mg/dL Borderline high 150 - 199 mg/dL High 200 - 499 mg/dL Very High > or = 500 mg/dL VLDL 19 mg/dL (Normal) Range: 5-40 :38 TSH 3.86 {uIU/mL} (Normal) Range: 0.34-4.82 :30 CBCD BASO% 0.4 % (Normal) Range: 0-1 EO% 0.3 % (Normal) Range: 0-5 HCT 38.2 % (Normal) Range: 37-47 HGB 12.9 g/dL (Normal) Range: 12.0-16.0 LY% 13.6 % (Abnormal) Range: 19-41 MCH 30.6 pg (Normal) Range: 27.0-32.0 MCHC 33.8 g/dL (Normal) Range: 32-36 MCV 90.5 fL (Normal) Range: 81-99 MONO% 5.0 % (Normal) Range: 0-10 MPV 7.7 fL (Normal) Range: 6.5-12.0 NEUT% 80.7 % (Abnormal) Range: 47-70 PLT 383 K/mm3 (Normal) Range: 150-450 RBC 4.22 {M/mm3} (Normal) Range: 4.2-5.4 RDW 14.1 % (Normal) Range: 11.6-14.6 WBC 8.7 K/mm3 (Normal) Range: 4.4-11.0 :30 COMP METABOLIC A/G 1.0 {RATIO} (Normal) Range: 0.9-2.4 ALB 3.4 g/dL (Normal) Range: 3.4-5.0 ALK P 97 U/L (Normal) Range: 50-136 ALT 27 [iU]/L (Abnormal) Range: 30-65 AST 19 U/L (Normal) Range: 15-37 BUN 11 mg/dL (Normal) Range: 7-18 BUN/CRE 10.0 {RATIO} (Normal) Range: 10-20 CA 8.9 mg/dL (Normal) Range: 8.5-10.1 CL 102 mmol/L (Normal) Range: 98-107 CO2 27.8 mmol/L (Normal) Range: 22.0-29.0 CREAT,SERUM 1.1 mg/dL (Abnormal) Range: 0.6-1.0 GAP 9 (Normal) Range: 5-15 GLOB 3.5 g/dL (Normal) Range: 2.3-3.5 GLU 88 mg/dL (Normal) Range: 70-110 K 3.5 mmol/L (Normal) Range: 3.5-5.1 NA 139 mmol/L (Normal) Range: 136-145 T BILI 0.19 mg/dL (Normal) Range: 0.00-1.00 T PROT 6.9 g/dL (Normal) Range: 6.4-8.2 :30 IMMUN.GAME 2295 IMMUNO A 1784 190 mg/dL (Normal) Range: 70-400 IMMUNO E 2171 4 {IU/mL} (Normal) Range: 0-158 IMMUNO G 1776 831 mg/dL (Normal) Range: 700-1600 IMMUNOGL M 1792 57 mg/dL (Normal) Range: 40-230 :47 BMP Comments: COMMENTS: BED 3Precautions*: NOT APPLICABLE BUN 25 mg/dL (Abnormal) Range: 7-18 BUN/CRE 13.2 {RATIO} (Normal) Range: 10-20 CA 9.9 mg/dL (Normal) Range: 8.5-10.1 CL 96 mmol/L (Abnormal) Range: 98-107 CO2 25.4 mmol/L (Normal) Range: 22.0-29.0 CREAT,SERUM 1.9 mg/dL (Abnormal) Range: 0.6-1.0 GAP 15 (Normal) Range: 5-15 GLU 98 mg/dL (Normal) Range: 70-110 K 2.9 mmol/L (Abnormal) Range: 3.5-5.1 NA 136 mmol/L (Normal) Range: 136-145 :47 CBCD Comments: COMMENTS: BED 3Precautions*: NOT APPLICABLE BASO% 1.4 % (Abnormal) Range: 0-1 EO% 1.0 % (Normal) Range: 0-5 HCT 44.2 % (Normal) Range: 37-47 HGB 15.4 g/dL (Normal) Range: 12.0-16.0 LY% 23.8 % (Normal) Range: 19-41 MCH 30.7 pg (Normal) Range: 27.0-32.0 MCHC 34.9 g/dL (Normal) Range: 32-36 MCV 88.0 fL (Normal) Range: 81-99 MONO% 4.8 % (Normal) Range: 0-10 MPV 7.4 fL (Normal) Range: 6.5-12.0 NEUT% 69.0 % (Normal) Range: 47-70 PLT 405 K/mm3 (Normal) Range: 150-450 RBC 5.03 {M/mm3} (Normal) Range: 4.2-5.4 RDW 13.6 % (Normal) Range: 11.6-14.6 WBC 15.7 K/mm3 (Abnormal) Range: 4.4-11.0 Plan of Care Name Dates Details Instructions Cough : Follow up if no improvement or if symptoms worsen Indication: Cough Influenza B : Flu (Influenza) *: upper respiratory infection Indication: Influenza B Chronic sinusitis : FOLLOW UP IN 2 WEEKS Indication: Chronic sinusitis Chronic sinusitis : FOLLOW UP IN 6 MONTHS Indication: Chronic sinusitis 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) : FOLLOW UP IN 4 WEEKS 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) Planned Observations Methymalonic Acid, Serum (13857)Indication: Anemia On: 90-Zti-817724:20 Request Iron Binding Capacity (TIBC) (26282)Indication: Anemia On: 34-Kie-736562:20 Request Iron (92188)Indication: Anemia On: :20 Request Ferritin (39912)Indication: Anemia On: 61-Hnf-182978:19 Request Metabolic Panel, Comprehensive (76524)Indication: Anemia On: 27-Ehx-487900:19 Request URINALYSIS (99083)Indication: Anemia On: :19 Request CBC WITH MANUAL DIFF (30149)Indication: Anemia On: :19 Request T4, FREE (THYROXINE) (45394)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) On: 58-Ifn-936089:33 Request T3, FREE (TRIDOTHYRONINE) (31593)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) On: 96-Opp-720126:33 Request Magnesium (53289)Indication: Alterations of sensations On: 20-Oir-404302:33 Request Metabolic Panel, Basic (42960)Indication: Alterations of sensations On: 63-How-412873:32 Request T4, FREE (THYROXINE) (31878)Indication: Alterations of sensations On: : Request TSH (80815)Indication: Alterations of sensations On: : Request Magnesium (37086)Indication: Alterations of sensations On: :31 Request Metabolic Panel, Comprehensive (95091)Indication: Alterations of sensations On: :30 Request Total Protein,24 Hour Urine (31661)Indication: Abnormal blood creatinine level On: 01-Aug-20166:08 Request CREATININE CLEARANCE (83066)Indication: Abnormal blood creatinine level On: :08 Request CBC WITH MANUAL DIFF (54510)Indication: Dehydration On: 1-Jhr-118279:00 Request Comments: recheck in one week Metabolic Panel, Basic (60973)Indication: Dehydration On: 8-Gxx-562901:00 Request Comments: recheck in one week Metabolic Panel, Basic (04380)Indication: Alterations of sensations On: 73-Faa-619925:36 Request Potassium Serum (11458)Indication: Hypokalemia On: 29-Kak-670943:52 Request Magnesium (80265)Indication: Hypokalemia On: 75-Obz-025846:52 Request Metabolic Panel, Comprehensive (73353)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) On: :07 Request DHEA (DEHYDROEPIANDROSTERONE) ([id number])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) On: :07 Request SOMATOMEDIN (67240)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) On: :07 Request CORTISOL FREE (95831)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) On: :07 Request TSH (55848)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) On: :07 Request T4, FREE (THYROXINE) ([id number])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) On: :07 Request T3, FREE (TRIDOTHYRONINE) ([id number])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) On: :07 Request ACTH ([id number])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) On: :05 Request URINE GILL CULTURE-JOHN COL COUNT ([id number])Indication: Dysuria On: [id number]-[id number] Request BACT CULTURE ANY-ANAEROBIC ([id number])Indication: Chronic sinusitis On: 21-Nfn-[id number]:30 Request GILL CULTURE-OTHER ([id number])Indication: Chronic sinusitis On: 62-Ohy-115259:30 Request INSULIN TOLERANCE PANEL; FOR GROWTH HORMONE DEFICIENCY ([id number])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) On: :45 Request TESTOSTERONE FREE ([id number])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) On: :45 Request CORTISOL FREE ([id number])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) On: :42 Request ACTH ([id number])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) On: :42 Request T3, FREE (TRIDOTHYRONINE) ([id number])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) On: :42 Request T4, FREE (THYROXINE) ([id number])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) On: :42 Request TSH ([id number])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) On: :42 Request CBC (Auto) ([id number])Indication: Depressive disorder On: :42 Request Metabolic Panel, Comprehensive ([id number])Indication: Depressive disorder On: :42 Request CBC WITH MANUAL DIFF ([id number])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) On: :13 Request URINALYSIS W/O MICRO ([id number])Indication: Hypokalemia On: :13 Request TSH ([id number])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 Peralta, on-call doctor Shanika Peralta MD ELECTROCARDIOGRAM, COMPLETE (ECG) On: 16-Dec-2017 Intent ([id number])By: Shanika Peralta MD Comments: see scanned document of test done to see results reviewed today with patient Shanika Peralta MD INFUSION, NORMAL SALINE SOLUTION , On: 15-Dec-2017 Intent 1000 CC (Special Coverage Comments: lot:[id number]: IV left anticubital dose: 1000ml sodium chloride given by: shania rollins ABN signedtolerated without difficulty ER, [employer] 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 See MCM: 2049) ([id number])By: Shanika Peralta MD, MD, Dana M MAMMOGRAM BREAST BILATERAL On: 04-Nov-2017 Intent SCREENING DIGITAL ([id number])By: Marilyn Aranda DO SCREENING DIGITAL TOMOSYNTHESIS OF On: 03-Nov-2017 Intent BREAST ([id number])By: Shanika Peralta MD, MD, Dana M MRI OF CERVICAL SPINE WITH AND On: 06-Nov-2016 Intent WITHOUT CONTRAST ([id number])By: Shanika Peralta MD, MD, Dana M MRI OF BRAIN WITH AND WITHOUT On: 05-Nov-2016 Intent CONTRAST ([id number])By: Shanika Peralta MD, MD, Dana M MRI OF BRAIN WITH AND WITHOUT On: 10-Jun-2016 Intent CONTRAST ([id number])By: Shanika Peralta MD, MD, Dana M Aerosol Treatment ([id number])By: Shaquille On: 28-Nov-[address] - Abdomen & PelvisBy: Galileo On: 10-Jul-2009 Intent Shanika GARCIA MD, Dana M SPECIMEN HANDLING/TRANSPORT On: 03-Mar-2009 Intent ([id number])By: Shanika Peralta MD, MD, Dana M CT - Sinuses CompleteBy: Shaquille On: 14-Oct-2007 Intent Jessie CASON Planned Medications INFUSION, NORMAL SALINE SOLUTION , 1000 CC Ordered: 15-Dec-2017 Pending Shanika Peralta MD, MD, Dana M Encounters Lab Order On: 14-Sep-2018 17:17 Encounter Diagnosis: Anemia End: 14-Sep-2018 17:20 [facility] Phone Encounter On: 11-Sep-2018 15:20 Encounter Diagnosis: SOB (shortness of breath) End: 11-Sep-2018 15:31 [facility] Annotation/Addendum On: 27-Jan-2018 8:54 Encounter Diagnosis: Stye End: 27-Jan-2018 9:00 [facility] Office Visit On: 15-Dec-2017 16:12 Encounter Diagnosis: Weakness, Alterations of sensations, 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), Dehydration End: 16-Dec-2017 19:57 [facility] Phone Encounter On: 04-Nov-2017 15:39 Encounter Diagnosis: Encounter for screening mammogram for malignant neoplasm of breast End: 04-Nov-2017 15:41 [facility] Phone Encounter On: 03-Nov-2017 14:19 Encounter Diagnosis: Encounter for screening mammogram for malignant neoplasm of breast End: 03-Nov-2017 14:55 [facility] Historical Summary On: 26-Aug-2017 7:56 Encounter Diagnosis: Bulimia, History of bulimia End: 26-Aug-2017 8:07 [facility] Lab Order On: 15-Aug-2017 11:43 Encounter Diagnosis: Renal insufficiency (593.9) End: 15-Aug-2017 11:48 [facility] Prescription Refill On: 18-Mar-2017 16:27 Encounter Diagnosis: Anxiety End: 18-Mar-2017 16:28 [facility] Lab Order On: 06-Mar-2017 15:23 Encounter Diagnosis: 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) End: 06-Mar-2017 15:34 [facility] Phone Encounter On: 22-Nov-2016 13:30 Encounter Diagnosis: Unspecified Diagnosis End: 22-Nov-2016 13:33 [facility] Office Visit On: 08-Nov-2016 10:01 Encounter Reason: Follow up ER - Reason for hospitalization note: (stroke sx ).Encounter Diagnosis: Alterations of sensations, History of multiple sclerosis, Other speech disturbance, Anxiety, Bulimia End: 08-Nov-2016 12:29 [facility] Phone Encounter On: 07-Nov-2016 8:35 Encounter Diagnosis: History of multiple sclerosis, Alterations of sensations End: 07-Nov-2016 8:44 [facility] Phone Encounter On: 06-Nov-2016 11:41 Encounter Diagnosis: Unspecified Diagnosis, Alterations of sensations, History of multiple sclerosis End: 06-Nov-2016 15:20 [facility] Office Visit On: 05-Nov-2016 14:08 Encounter Diagnosis: Headache in front of head, Alterations of sensations, Other speech disturbance, History of multiple sclerosis, 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) End: 05-Nov-2016 15:37 [facility] Lab Order On: 01-Aug-2016 6:07 Encounter Diagnosis: Abnormal blood creatinine level End: 01-Aug-2016 6:09 [facility] Lab Order On: 29-Jul-2016 11:59 Encounter Diagnosis: Dehydration End: 29-Jul-2016 12:00 [facility] Phone Encounter On: 10-Jun-2016 10:34 Encounter Diagnosis: Visual changes, Facial paresthesia, History of multiple sclerosis End: 10-Jun-2016 10:46 [facility] Office Visit On: 07-Jun-2016 14:14 Encounter Reason: Sinusitis - Symptoms include cheek pain and cheek pressure. Onset was sudden 2 day(s) ago.Encounter Diagnosis: Sinus pain, Anxiety (300.00), Visual changes End: 07-Jun-2016 16:03 [facility] Phone Encounter On: 02-Apr-2016 16:42 Encounter Diagnosis: Unspecified Diagnosis End: 02-Apr-2016 16:45 [facility] Office Visit On: 28-Nov-2014 7:59 Encounter Reason: Cough - The onset of the cough has been sudden. The cough is characterized as productive of mucoid sputum. The amount of sputum produced is less than a half a cup per day. The cough occurs all the time End: 28-Nov-2014 8:29 . The symptoms are aggravated by supine posture. The symptoms have been associated with fever, hoarseness and runny nose, while the symptoms have not been associated with headache or wheezing. the color of the sputum is yellowish. Encounter Diagnosis: Fever and chills, Cough, Influenza B [facility] Phone Encounter On: 05-Sep-2014 20:06 [facility] End: 05-Sep-2014 20:06 Office Visit On: 24-Jun-2014 10:22 Encounter Reason: Follow up for chronic medical issues - The patient feels well with no complaints, has good energy level and is sleeping well. Patient has been compliant with instructions. Current medication use: no edyta End: 24-Jun-2014 11:06 e effects, compliant with dosing regimen and considered effective by patient. Patient sleeps 7 hours per night. Impact of disease: emotional impact-mild. Nutrition: balanced diet and supplemental vitami ns. 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), Overweight, Contraceptive management, Anxiety (300.00), Renal insufficiency (593.9), DISORDER, EATING NEC (307.59), WWV V70.0 tizzano, Hypokalemia (276.8) [facility] Phone Encounter On: 22-Jun-2014 15:13 [facility] End: 22-Jun-2014 15:13 Phone Encounter On: 08-Apr-2014 12:40 Encounter Diagnosis: Contraceptive management End: 08-Apr-2014 12:45 [facility] Phone Encounter On: 27-Jan-2014 22:07 [facility] End: 27-Jan-2014 22:07 Phone Encounter On: 17-Dec-2013 19:08 Encounter Diagnosis: Overweight End: 17-Dec-2013 19:14 [facility] Phone Encounter On: 17-Dec-2013 19:05 [facility] End: 17-Dec-2013 19:05 Phone Encounter On: 16-Dec-2013 21:39 [facility] End: 16-Dec-2013 21:39 Phone Encounter On: 17-Oct-2013 13:27 [facility] End: 17-Oct-2013 13:28 Refill Request On: 02-Jul-2013 11:41 Encounter Diagnosis: WWV V70.0 tizzano End: 02-Jul-2013 11:44 [facility] Phone Encounter On: 16-Nov-2012 17:45 Encounter Diagnosis: Unspecified Diagnosis End: 16-Nov-2012 17:49 [facility] Phone Encounter On: 16-Aug-2012 12:57 [facility] End: 16-Aug-2012 12:57 Phone Encounter On: 02-Jun-2012 15:20 Encounter Diagnosis: Bronchitis, acute (466.0) End: 02-Jun-2012 15:23 [facility] Phone Encounter On: 18-Jan-2012 8:35 [facility] End: 18-Jan-2012 8:35 Phone Encounter On: 11-Nov-2011 20:51 [facility] End: 11-Nov-2011 20:51 Phone Encounter On: 01-Nov-2011 19:04 [facility] End: 01-Nov-2011 19:04 Phone Encounter On: 18-Oct-2011 9:02 Encounter Diagnosis: 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 Patient has been compliant with instructions. Current medication use: no edyta End: 03-Oct-2010 18:47 e effects, compliant with dosing regimen and considered effective by patient. Patient sleeps 7 hours per night. Impact of disease: emotional impact-mild. Nutrition: balanced diet and supplemental vitami ns. The medical issues the patient is following up for include cardiac issues, depression (anxiety ), hypothyroid and other (anemia ).Encounter Diagnosis: DEPRESSIVE DISORDER, NOT ELSEWHERE CLASSIFIED (311.), Panhypopituitarism (253.2), GENERAL SYMPTOMS; OTHER CONVULSIONS (780.39), Anxiety (300.00), Renal insufficiency (593.9), DISORDER, EATING NEC (307.59), WWV V70.0 willi [facility] Phone Encounter On: 08-Jan-2010 13:10 [facility] End: 08-Jan-2010 13:10 Office Visit On: 10-Jul-2009 11:43 Encounter Diagnosis: Abdominal Pain,LLQ (789.04), Visual Change (443.9) End: 10-Jul-2009 12:22 [facility] Office Visit On: 03-Mar-2009 11:28 Encounter Diagnosis: Dysuria (788.1) End: 03-Mar-2009 11:30 [facility] Phone Encounter On: 28-Oct-2008 12:07 [facility] End: 28-Oct-2008 12:08 Phone Encounter On: 28-Jan-2008 10:05 [facility] End: 28-Jan-2008 10:06 Office Visit On: 20-Oct-2007 12:28 Encounter Diagnosis: Polyp of nasal cavity (471.0) End: 20-Oct-2007 12:29 [facility] Annotation/Addendum On: 15-Oct-2007 10:01 Encounter Diagnosis: Unspecified Diagnosis End: 15-Oct-2007 10:05 [facility] Office Visit On: 14-Oct-2007 14:46 Encounter Reason: Sinusitis/ - The duration of the symptoms are 4 weeks The course has been worsening (did do biaxin, levaquin, mucinex ). The sinusitis/ has no relieving factors. Associated features include The symptoms End: 14-Oct-2007 15:47 have been associated with nasal discharge/stuffy nose (from nose back can't breathe ), while the symptoms have not been associated with cough ,ear pain ,purulent discharge from ear ,purulent nasal disc harge ,red eyes ,sinus pain ,sore throat ,swollen lymph glands or teeth pain. No previous evaluations were reported. none reported. 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 Patient has been compliant with instructions. Current medication use: no End: 13-Apr-2007 10:04 side effects ,compliant with dosing regimen and considered effective by patient. Patient sleeps 7 hours per night. Impact of disease: emotional impact-mild. Nutrition: balanced diet and supplemental vit amins. The medical issues the patient is following up for include depression and other (adrenal issues, anxiety ). 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 The course has been constant. The dizziness/ is characterized as lightheadedness and End: 06-Nov-2006 15:15 spinning of the environment. The dizziness/ is precipitated by position change and riding in a car. The symptoms have been associated with headache and nausea, while the symptoms have not been associate d with palpitations ,sweating or syncope. Note for Dizziness/: positionally related, not feel in sinus think related to tight in c spine Encounter Diagnosis: Dizziness (780.4) [facility] Office Visit On: 30-Sep-2006 14:25 Encounter Reason: Follow up for chronic medical issues - The patient feels well with no complaints ,has good energy level and is sleeping well. Patient has been compliant with instructions. Current medication use: no edyta End: 01-Oct-2006 6:59 e effects and compliant with dosing regimen. Nutrition: balanced diet ,no supplemental vitamins & iron and low salt diet. The medical issues the patient is following up for include other (anxiety, p anhypopituitarism, seizue, anemia, svt.). Note for Follow up for chronic medical issues: sinuses alot better with nasal spray and antiobiotics- feels better in general and less fatigue and overall doing well- wants , [ADDITIONAL REASON] Follow up, Laboratory Test Results - Date: (09/26/06- on face sheet.). Encounter Diagnosis: Electrolyte and fluid disorders not elsewhere classified (276.9), DEPRESSIVE DISORDER, NOT ELSEWHERE CLASSIFIED (311.), Chronic sinusitis (473.9), renal insuff- get followup bmp one month, hematuria- was near cycle- get followua [facility] Historical Summary On: 05-Sep-2006 16:19 [facility] End: 05-Sep-2006 16:21 Office Visit On: 04-Sep-2006 13:41 Encounter Reason: Follow up, Laboratory Test Results - Lab results: other. Date: (09-02-2006). Current symptoms/reason for visit include/s Follow up visit with no current symptoms. Note for Follow up, Laboratory Test Resu End: 05-Sep-2006 6:19 lts: pink eye before car- and again recently- also had a sinus infection- on ketek- didnt help- has yellow drainage- hair is not falling out- never tired and has alot of energy- does not feelp, [ADDITIONAL REASON] Follow up for chronic medical issues - The patient feels well with minor complaints ,has good energy level and is sleeping well. Patient has been compliant with instructions. Jeny sow medication use: no side effects and compliant with dosing regimen. Patient sleeps 6 hours per night. Nutrition: balanced diet. The medical issues the patient is following up for include All identified problems below ,hypothyroid and other. 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
--- OUTSIDE RECORDS SUMMARY | 2018-11-16 05:37 | XMS RPT_ITS | Continuity of Care Document ---
:1970 Author Organization [facility] Address [address] [place] [address] Phone Care Team Providers Name Role Phone Galileo GARCIA, Shanika Goldstein Unavailable Joy Sandra Unavailable Valentin Pérez Unavailable Dafne Vail Unavailable Lloyd Zuniga Unavailable Unavailable Mattie Newell [...] water pill better due recheck Status: Active Stye (H00.019, 373.11) Status: Active [...] {Tablet} Refills: 1 Ordered:11-Aug-2018 Galileo GARCIA, Shanika Mendez MD, Shanika Goldstein Start : 11-Aug-2018 Active POTASSIUM CHLORIDE ER, 20MEQ (Oral Tablet Extended Release) 1 (one) Tablet ER Tablet ER daily for 2 weeks then prn with hctz for 0 days Quantity: 30 {Tablet} Refills: 3 Ordered:24-Jun-2014 Halima Gonzales LPN Start : 24-Jun-2014 Active Synthroid 88 MCG Oral Tablet 1 Tablet qd for 0 days Quantity: 90 {Tablet} Refills: 3 Ordered:11-Sep-2017 Galileo GARCIA, Shanika Mendez MD, Shanika Goldstein Start : 11-Sep-2017 Active Dispense as Written Valtrex 1 GM Oral Tablet 1 (one) Tablet Tablet bid for 5 days for 0 days Quantity: 10 {Tablet} Refills: 3 Ordered:17-Feb-2017 Shanika Peralta MD, MD, Dana M Start : 17-Feb-2017 Active Wellbutrin XL 150 MG Oral Tablet Extended Release 24 Hour 1 (one) Tablet qd for 0 days Quantity: 90 {Tablet} Refills: 1 Ordered:11-Aug-2018 Galileo GARCIA, Shanika Vasquez MD Start : 11-Aug-2018 Active Wellbutrin XL 300 MG Oral Tablet Extended Release 24 Hour 1 Tablet ER 24HR qd for 0 days Quantity: 90 {Tablet} Refills: 1 Ordered:11-Aug-2018 Galileo GARCIA, Shanika Vasquez MD Start : 11-Aug-2018 Active Zithromax Z-Elmer 250 [...] days Quantity: 14 {Tablet} Refills: 0 Ordered:03-Mar-2009 JUANA Griffin Start : 03-Mar-2009 End : 10-Jul-2009 Inactive Denavir 1 % External Cream uad Cream prn for 0 days Quantity: 1 {Cream} Refills: 4 Ordered:18-Mar-2017 JUANA Griffin Start : 11-Jul-2016 End : 18-Mar-2017 Inactive Famciclovir 500 MG Oral Tablet 1 (one) Tablet Every 8 hours for 5 days Quantity: 15 {Tablet} Refills: 0 Ordered:08-Jul-2016 Galileo GARCIA, Shanika Mendez MD, Shanika Goldstein Start : 08-Jul-2016 End [...] days Quantity: 10 {Tablet} Refills: 0 Ordered:15-Oct-2007 Renéemargaritacarlito CASONJessie Start : 15-Oct-2007 End : 06-Nov-2007 Inactive [...] {Capsule} Refills: 0 Ordered:17-Dec-2013 Galileo GARCIA, Shanika Mendez MD, Shanika Goldstein Start : 17-Dec-2013 End [...] days Quantity: 30 {Tablet_ER} Refills: 4 Ordered:30-Sep-2006 Christian CONRAD Halima Start : 30-Sep-2006 End : 30-Sep-2006 Discontinued [...] Comments: had for about 6 months. seen obstetrician gynecologist, pelvic us good. will need ct scan [...] management (Z30.9, V25.9) Status: Inactive as of 18-Mar-2017 Cough (R05, 786.2) Status: Inactive as of [...] 427.81) Comments: related to severe hypoglycemia event 2004 and adreanl crisis no reoccurence Status: Resolved [...] Status: Inactive as of 18-Mar-2017 WWV V70.0 willi Comments: 8- just done. good. cholesterol good -. tetanus due 2015 Status: Inactive as of 18-Mar-2017 Procedures Date Value Details 26-Nov-2016 Emergency Department Summary Result: Comments: See Note; NOTES: [facility] Medical Records Department [address] [place] [address] Emergency Department Summary MR#: [id number] Acct: [id number] Name: MELANIE ABRAMS Rep #: [id number] : 1970 46 From: Luca Dean MD [...] Miryam Flower C: Shanika Peralta MD T: [facility] JOB: [id number] 11/26/16 1212 <Electronically signed by Luca Dean MD&#62 ; Date Luca Dean MD Cosigner Signature (If Indicated): Date CC: Shanika Peralta MD Date Dictated: 11/26/16753 Date Transcribed: 11/26/16753 [employer] Registrar: Signed 15-Nov-2016 Spine Cervical W/WO Contrast Result: Comments: See Note; NOTES: [facility] Imaging Services [address] [place] [address] Verda 4d Spine Cervical W/WO Contrast MR#: [id number] Acct: [id number] Name: MELANIE ABRAMS Rep #: [id number] : 1970 F 46 From: Charlene Gupta MD PCP: Shanika Peralta MD Status: REG CLI Study: Spine Cervical W/WO Contrast Date of Exam: 11/15/16 Exam# [id number] Ordering Dr: Shaniak Peralta MD STUDY: MRI CERVICAL SPINE WITH [...] at 18:0 6 EDT , Service support [phone], CC: Shanika Peralta MD [employer] Registrar: Signed 05-Nov-2016 Discharge Instruction Result: Comments: See Note; NOTES: [facility] Medical Records Department [address] [place] [address] Discharge Instruction 11/05/16 1749 MR#: [id number] Acct: [id number] Name: Mara ABRAMS Rep #: [id number] : 1970 46 From: Luca Dean MD [...] problems, contact your Primary Care Provider. Call [facility] ([phone]) or report to the closest Emergency Room. Call 911 if necessary. 11/05/16 1751 &# 60;Electronically signed by Luca Dean MD> Date Luca Dean MD Cosigner Signature (If Indicated): Date CC: Shanika Peralta MD 05-Nov-2016 Brain W/WO Contrast Result: Comments: See Note; NOTES: [facility] Imaging Services [address] [place] [address] Verdana 4d Brain W/WO Contrast MR#: [id number] Acct: [id number] Name: MELANIE ABRAMS Rep #: [id number] : 1970 F 46 From: Anne Love MD PCP: Shanika Peralta MD Status: REG ER Study: Brain W/WO Contrast Date of Exam: 11/05/16 Exam# [id number] Ordering Dr: Luca Dean MD STUDY: MRI [...] at 17:22 EDT Tel , Service support [phone], CC: Shanika Peralta MD; Luca Dean MD [employer] Registrar: Signed 27-Sep-2016 Discharge Instruction Result: Comments: See Note; NOTES: [facility] Medical Records Department [address] [place] [address] Discharge Instruction 07/29/16 0144 MR#: [id number] Acct: [id number] Name: Mara ABRAMS Rep #: [id number] : 1970 46 From: Yahir Green MD PCP: Shanika Peralta MD Status: DEP ER ED Disposition - Plan for ED [...] problems, contact your Primary Care Provider. Call [facility] ([phone]) or report to the closest Emergency Room. Call 911 if necessary. 09/27/16 0808 <Electronically signed by Yahir Green MD> Date __ Yahir Green MD Cosigner Signature (If Indicated): Date CC: Shanika Peralta MD 27-Sep-2016 Emergency Department Summary Result: Comments: See Note; NOTES: [facility] Medical Records Department [address] [place] [address] Emergency Department Summary MR#: [id number] Acct: [id number] Name: MELANIE ABRAMS Rep #: [id number] : 1970 46 From: Yahir Green MD PCP: Shanika Peralta MD Status: DEP ER DATE OF SERVICE: 07/29/2016 CHIEF COMPLAINT: [...] C: Shanika Peralta MD T: [facility] JOB: [id number] 09/27/16 0808 <Electronically signed by Yahir Green MD> Date ___ Yahir Green MD Cosigner Signature (If Indicated): Date CC: Shanika Peralta MD Date Dictated: 07/29/16238 Date Transcribed: 07/29/16238 [employer] Registrar: Signed 14-Jun-2016 Brain W/WO Contrast Result: Comments: See Note; NOTES: [facility] Imaging Services [address] [place] [address] Verdana 4d Brain W/WO Contrast MR#: [id number] Acct: [id number] Name: MELANIE ABRAMS Rep # : [id number] : 1970 F 46 From: Donis Kent MD PCP: Shanika Peralta MD Status: REG CLI Study: Brain W/WO Contrast Date of Exam: 06/14/16 Exam# [id number] Ordering Dr: Shanika Peralta MD STUDY: MR [...] MD at 16:13 EDT , Service support [phone], CC: Shanika Peralta MD [employer] Registrar: Signed Family History Unknown Family Member Name [...] kg/m2 Body Surface Area Calculated 1.52 m2 :16 Temperature 98.3 f Comments: Method: Tympanic Pulse [...] Details :59 Basic Metabolic Profile (BMP) Comments: [facility] [address] [place], [address] GAP 6 (Normal) Range: 5-15 CO2 27.0 [...] Comments: Please note revised GLUCOSE reference range /02/2018. 18-Mwz-383429:59 Free T3 Comments: [facility] [address] [place], [place], [id number] FREE T3 2.5 pg/mL (Normal) Range: 2.18-3.98 49-Icb-962571:59 Magnesium Comments: [facility] [address] [place], [id number] MG 2.2 mg/dL (Normal) Range: 1.6-2.6 02-Yfn-071359:59 T4 Free Direct Comments: [facility] [address] [place], [place], [address] T4 FREE DIRECT 1.20 ng/dL (Normal) Range: 0.76-1.46 19-Tkp-221651:52 Urinalysis, Office (77226) UA - LEUKOCYTE ESTERASE Trace (Normal) UA - NITRITE Negative (Normal) URINE UROBILINGN JOHN TIMED 2 mg/dL (Normal) UA - PROTEIN Negative mg/dL (Normal) UA - PH 7.0 (Normal) UA - BLOOD Hemolyzed Small (Normal) UA - SPECIFIC GRAVITY 1.000 (Normal) UA - KETONES Negative mg/dL (Normal) UA - BILIRUBIN Negative (Normal) UA - GLUCOSE Negative (Normal) 67-Abk-316300:29 CBC WITH MANUAL DIFF (67518) Comments: PATIENT NOT FASTINGPERFORMED BY: [facility] Ffcvvg0571 [facility] [id number] Immature Grans (Abs) 0.0 {x10E3/uL} (Normal) Range: [...] 3.77-5.28 WBC 5.5 {x10E3/uL} (Normal) Range: 3.4-10.8 43-Syl-799764:29 Metabolic Panel, Comprehensive Comments: PATIENT NOT FASTINGPERFORMED BY: [facility] Ru[address]sk6247 [facility] [id number] (87956) ALT (SGPT) 12 [iU]/L (Normal) Range: 0-32 [...] Glucose, Serum 76 mg/dL (Normal) Range: 65-99 8-Xkg-510496:55 TSH (21409) Comments: PATIENT NOT FASTINGPERFORMED BY: [facility]385 [facility] [id number] TSH 2.170 {uIU/mL} (Normal) Range: 0.450-4.500 :55 T4, FREE (THYROXINE) (70781) Comments: PATIENT NOT FASTINGPERFORMED BY: [facility] [id number] T4,Free(Direct) 1.71 ng/dL (Normal) Range: 0.82-1.77 :09 Basic Metabolic Profile (BMP) Comments: [facility] [address] [place], [address] GAP 9 (Normal) Range: 5-15 CO2 27.0 [...] mg/dL (Normal) Range: 70-110 :09 Magnesium Comments: [facility] [address] [place], [place], [address] MG 2.3 mg/dL (Normal) Range: 1.8-2.4 80-Oew-067800:09 T4 Free Direct Comments: [facility] [address] [place], [address] T4 FREE DIRECT 1.55 ng/dL (Abnormal) Range: 0.76-1.46 67-Evm-285891:09 Thyroid Stim Hormone (TSH) Comments: [facility] [address] [place], [address] TSH 0.58 {uIU/mL} (Normal) Range: 0.358-3.74 21-Xfw-036189:39 Basic Metabolic Profile (BMP) Comments: 'TROP' Serial specimen #1, #2, #3, or #4: [facility] [address] [place], [address] GAP 8 (Normal) Range: 5-15 CO2 27.0 [...] 7-18 GLU 91 mg/dL (Normal) Range: 70-110 38-Eix-941440:39 CBC W/Diff, Automated Comments: [facility] [address] [place], [id number] Absolute Lymph 1.39 {X10_3/ul} (Normal) Range: 0.83-4.51 [...] Range: 4.4-11.0 :39 Partial Thromboplast Time Comments: [facility] [address] [facility]. [place], [place], [address] PTT 26.4 s (Normal) Range: 24.1-36.2 :39 Prothrombin Time w/INR Comments: [facility] [address] [facility] [place], [address] INR 1.0 (Normal) PROTIME 13.2 s (Normal) Range: 11.7-14.9 :39 Troponin-I Comments: 'TROP' Serial specimen #1, #2, #3, or #4: [facility] [address] [place], [address] TROPONIN-I < 0.02 ng/mL (Normal) Comments: TROPONIN-I EXPECTED VALUES <0.05 NEGATIVE 0.06 - 0.59 AT RISK OF MN > OR = 0.60 SUGGEST MN 94-Plt-230210:32 Bedside Glucose Comments: [facility] LaboratoryPoint of [address] [place] [address] BEDSIDE GLU 99 mg/dL (Normal) Range: 70-110 Comments: MANAGEMENT OF PATIENT CARE PER NURSING PROTOCOL :15 Basic Metabolic Profile (BMP) Comments: [place] [address] [place], [address] GAP 9 (Normal) Range: 5-15 CO2 [...] Range: 70-110 :15 CBC W/Diff, Automated Comments: [facility] [address] [place], [address] Absolute Lymph 2.99 {X10_3/ul} (Normal) Range: [...] K/mm3 (Abnormal) Range: 4.4-11.0 :15 Lipase Comments: [facility] [address] [place], [place], [address] LIPASE 109 U/L (Normal) Range: 73-393 :15 Liver Profile Comments: [facility] [address] [facility]. [place], [place], [address] D BILI 0.23 mg/dL (Normal) Range: 0.00-0.30 T BILI 0.80 mg/dL (Normal) Range: 0.20-1.00 ALT 18 U/L (Normal) Range: 12-78 ALK P 105 U/L (Normal) Range: 45-117 AST 27 U/L (Normal) Range: 15-37 GLOB 4.0 g/dL (Abnormal) Range: 2.3-3.5 ALB 3.6 g/dL (Normal) Range: 3.4-5.0 T PROT 7.6 g/dL (Normal) Range: 6.4-8.2 :14 Rapid Flu (85460 x 2) Influenza A Ag positive B [...] processing 11/18/11,RESULTS FAXED TO DR. PERALTA 11/18/11 0425 MARIO TELLO. Comments: Scanned image report available in PCI.See LAB REFERENCE RESULTS form. :13 PHOS 3.4 mg/dL (Normal) Comments: DR. ARIAS ORDERED BMP, MG AND PHOS.DR. PERALTA ORDERED T3F, T4F, TSH, CORTISOL(FREE), ACTH,SOMATOMEDIN, DHEA, CMP Range: 2.5-4.9 :13 SOMA 38 ng/mL (Abnormal) Range: 101-267 Comments: Performed at: [place] [id number] Director: Roberta Pandya MD, Phone: [phone] :[phone] T4F 1.18 ng/dL (Normal) Comments: DR. ARIAS ORDERED BMP, MG AND PHOS.DR. PERALTA ORDERED T3F, T4F, TSH, CORTISOL(FREE), ACTH,SOMATOMEDIN, DHEA, CMP Range: 0.76-1.46 :13 TSH 1.24 {uIU/mL} (Normal) Comments: DR. ARIAS ORDERED BMP, MG AND PHOS.DR. PERALTA ORDERED T3F, T4F, TSH, CORTISOL(FREE), ACTH,SOMATOMEDIN, DHEA, CMP Range: 0.358-3.74 13-Iyk-429205:51 COMP METABOLIC CO2 27.0 mmol/L (Normal) Range: [...] (Abnormal) GLU 83 mg/dL (Normal) Range: 70-110 09-Dnd-350772:47 ABDOMEN/PELVIS WITH CONTRAST Radiology Report See Note (Normal) Comments: Exam Number: [id number] CLINICAL:Left lower quadrant pain. CT ABDOMEN WITH [...] the pelvis. Reported By: PAVEL DELACRUZ M.D. 9-Wmv-815800:55 DUPLEX ARTERIAL FLOW,LMT () Radiology Report See Note (Normal) Comments: Exam Number: [id number] PELVIC ULTRASOUND HISTORYLeft lower quadrant pain, right [...] ovaries. There is no free fluid in ycjqrg-ec-ywf. IMPRESSION1. There is a small amount of fluid in the endometrial canal which maria teresa nonspec ific finding. 2. The ovaries are within normal limits.3. No free fluid is seen in the cul-de-sac. Reported By: YOEL NI M.D. 8-Jnv-045700:30 TRANSVAGINAL NON-PREG US () Radiology Report See Note (Normal) Comments: Exam Number: [id number] PELVIC ULTRASOUND HISTORYLeft lower quadrant pain, right [...] ovaries. There is no free fluid in hmkwjj-ad-grw. IMPRESSION1. There is a small amount of fluid in the endometrial canal which maria teresa nonspec ific finding. 2. The ovaries are within normal limits.3. No free fluid is seen in the cul-de-sac. Reported By: YOEL NI M.D. 1-Asi-138623:28 PELVIC (NON-PREG) (HP) Radiology Report See Note (Normal) Comments: Exam Number: [id number] PELVIC ULTRASOUND HISTORYLeft lower quadrant pain, right [...] ovaries. There is no free fluid in icehqj-zu-ifh. IMPRESSION1. There is a small amount of fluid in the endometrial canal which maria teresa nonspec ific finding. 2. The ovaries are within normal limits.3. No free fluid is seen in the cul-de-sac. Reported By: YOEL NI M.D. 63-Ucl-050933:29 Urinalysis, Office (17171) UA - BILIRUBIN Small (Normal) UA - BLOOD Hemolyzed Large (Normal) UA - GLUCOSE Negative (Normal) UA - KETONES Small mg/dL (Normal) UA - LEUKOCYTE ESTERASE Trace (Normal) UA - NITRITE Negative (Normal) UA - PH 6.0 (Normal) UA - PROTEIN 100 mg/dL (Normal) UA - SPECIFIC GRAVITY 1.025 (Normal) URINE UROBILINGN JOHN TIMED 2 mg/dL (Normal) 95-Rjc-78785:00 CULTURE, URINE URINE CULTURE See Note {CFU/mL} (Normal) Comments: COLONY COUNT <1000 ORGANISM 1: MIXED GRAM POSITIVE ORGANISMS :00 BMP BUN 12 mg/dL (Normal) Range: 7-18 [...] 3.5-5.1 NA 143 mmol/L (Normal) Range: 136-145 :00 MG 2.2 mg/dL (Normal) Range: 1.5-2.2 :00 TSH 1.55 {uIU/mL} (Normal) Range: 0.34-4.82 17-Beb-907500:40 CORONALS,SAG,MULTI,OBL,3-D REC Radiology Report See Note (Normal) Comments: Exam Number: [id number] CT SCAN OF SINUSES AND FACIAL BONES HISTORYChronic sinusitis. Axial and coronal sections were obtained at 2.5-mm intervals. Thecurrent study is compared to the examination of Mar. There has been a surgical procedure with [...] is identified. Reported By: YOEL NI M.D. 32-Sln-497261:40 SINUS/FACIAL BONE WITHOUT CONT Radiology Report See Note (Normal) Comments: Exam Number: [id number] CT SCAN OF SINUSES AND FACIAL BONES HISTORYChronic sinusitis. Axial and coronal sections were obtained at 2.5-mm intervals. Thecurrent study is compared to the examination of Mar. There has been a surgical procedure with [...] is identified. Reported By: YOEL NI M.D. 04-Ypj-597210:10 CULTURE, NOSE GRAM STAIN See Note (Normal) Comments: GRAM STAIN RARE EPITHELIAL CELLS 1+ GRAM POSITIVE COCCI NASAL CULTURE See Note (Normal) Comments: NORMAL KEN AMOUNT GROWTH 1+ ORGANISM 1: COAG NEGATIVE STAPH 49-Yfa-89615:40 ACTH 4440 < 5 pg/mL (Abnormal) Range: 6-48 71-Nkq-93447:40 CBCD BASO% 0.5 % (Normal) Range: 0-1 [...] 7.9 g/dL (Normal) Range: 6.4-8.2 :40 INSULIN OF30663 80 ng/mL (Abnormal) Range: 109-284 :40 T3, FREE 85008 2.7 pg/mL (Normal) Range: 2.3-4.2 Comments: Performed At: [facility] [address] [place], [place] [id number] At: [facility] [address] [place], [place] [id number] :40 T4 FREE,DIRECT 1.3 ng/dL (Normal) Range: 0.89-1.76 :40 TEST FR 192204 <0.2 pg/mL (Normal) Range: 0.0-2.2 :40 TSH [...] secretion of all pituitary hormones) Planned Observations T4, FREE (THYROXINE) (76297)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) On: 77-Jff-807633:33 Request T3, FREE (TRIDOTHYRONINE) (25751)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) On: 82-Php-935374:33 Request Magnesium (76985)Indication: Alterations of sensations On: 76-Shz-974352:33 Request Metabolic Panel, Basic (80151)Indication: Alterations of sensations On: 19-Pwl-586330:32 Request T4, FREE (THYROXINE) (21626)Indication: Alterations of sensations On: 93-Kdx-888378:31 Request TSH (64276)Indication: Alterations of sensations On: :31 Request Magnesium (32080)Indication: Alterations of sensations On: :31 Request Metabolic Panel, Comprehensive (76023)Indication: Alterations of sensations On: :30 Request Total Protein,24 Hour Urine (65849)Indication: Abnormal blood creatinine level On: 01-Aug-20166:08 Request CREATININE CLEARANCE (33529)Indication: Abnormal blood creatinine level On: :08 Request CBC WITH MANUAL DIFF (97366)Indication: Dehydration On: :00 Request Comments: recheck in one week Metabolic Panel, Basic (26583)Indication: Dehydration On: : Request Comments: recheck in one week Metabolic Panel, Basic (04855)Indication: Alterations of sensations On: 82-Zoq-937297:36 Request Potassium Serum (79800)Indication: Hypokalemia On: 83-Euo-545760:52 Request Magnesium (77040)Indication: Hypokalemia On: 02-Vyg-860298:52 Request Metabolic Panel, Comprehensive (66191)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) On: :07 Request DHEA (DEHYDROEPIANDROSTERONE) (76555)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) On: :07 Request SOMATOMEDIN (66823)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) On: :07 Request CORTISOL FREE (53912)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) On: :07 Request TSH (56444)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) On: :07 Request T4, FREE (THYROXINE) (55348)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) On: : Request T3, FREE (TRIDOTHYRONINE) (88133)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) On: :07 Request ACTH (10626)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) On: :05 Request URINE GILL CULTURE-JOHN COL COUNT (63585)Indication: Dysuria On: :29 Request BACT CULTURE ANY-ANAEROBIC (86440)Indication: Chronic sinusitis On: 30-Yuv-615903:30 Request GILL CULTURE-OTHER (27849)Indication: Chronic sinusitis On: :30 Request INSULIN TOLERANCE PANEL; FOR GROWTH HORMONE DEFICIENCY (57604)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) On: :45 Request TESTOSTERONE FREE (77375)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) On: :45 Request CORTISOL FREE (18179)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) On: :42 Request ACTH (11468)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) On: :42 Request T3, FREE (TRIDOTHYRONINE) (19508)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) On: :42 Request T4, FREE (THYROXINE) (07256)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) On: :42 Request TSH (23183)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) On: :42 Request CBC (Auto) (85755)Indication: Depressive disorder On: :42 Request Metabolic Panel, Comprehensive (53965)Indication: Depressive disorder On: :42 Request CBC WITH MANUAL DIFF (46411)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) On: :13 Request URINALYSIS W/O MICRO (18417)Indication: Hypokalemia On: :13 Request TSH (75505)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) On: :12 Request METABOLIC PANEL, COMPREHENSIVE (27859)Indication: Hypokalemia On: :12 Request Comments: 2 weeks LIPID PANEL (99601)Indication: Family history of ischemic heart disease On: :12 Request Planned Procedures ELECTROCARDIOGRAM, COMPLETE (ECG) On: 16-Dec-2017 Intent (96830)By: Shanika Peralta MD Comments: see scanned document of test done to see results reviewed today with patient Shanika Peralta MD INFUSION, NORMAL SALINE SOLUTION , On: 15-Dec-2017 Intent 1000 CC (Special Coverage Comments: lot:[id number]: IV left anticubital dose: 1000ml sodium chloride given by: shania conrad ABN signedtolerated without difficulty ER, 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 See MCM: 9) (J7030)By: Shanika Peralta MD, MD, Dana M MAMMOGRAM BREAST BILATERAL SCREENING On: 04-Nov-2017 Intent DIGITAL (89748)By: Marilyn Aranda DO SCREENING DIGITAL TOMOSYNTHESIS OF On: 03-Nov-2017 Intent BREAST (08438)By: Shanika Peralta MD, MD, Dana M MRI OF CERVICAL SPINE WITH AND On: 06-Nov-2016 Intent WITHOUT CONTRAST (09767)By: Shanika Peralta MD, MD, Dana M MRI OF BRAIN WITH AND WITHOUT On: 05-Nov-2016 Intent CONTRAST (01674)By: Shanika Peralta MD, MD, Dana M MRI OF BRAIN WITH AND WITHOUT On: 10-Jun-2016 Intent CONTRAST (17183)By: Shanika Peralta MD, MD, Dana M Aerosol Treatment (08100)By: Shaquille On: 28-Nov-2014 Intent 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, Ariana CT - Abdomen & PelvisBy: Galileo GARCIA, On: 10-Jul-2009 Intent Shanika Matthews MD SPECIMEN HANDLING/TRANSPORT On: 03-Mar-2009 Intent (40907)By: Galileo GARCIA, Shanika Matthews MD CT - Sinuses CompleteBy: Renéegregorio KAMLA, On: 14-Oct-2007 Intent Ariana Planned Medications INFUSION, NORMAL SALINE SOLUTION , 1000 CC Ordered: 15-Dec-2017 Pending Galileo GARCIA, Shanika Matthews MD Encounters Annotation/Addendum On: 27-Jan-2018 8:54 Encounter Diagnosis: Stye [...] On: 02-Jul-2013 11:41 Encounter Diagnosis: WWV V70.0 jefferyano End: 02-Jul-2013 11:44 [facility] Phone [...] Medicine End: 04-Sep-2006 9:33 Payers Bonnie ABRAMS; carlito guarantor
--- OUTSIDE RECORDS SUMMARY | 2018-11-16 05:37 | XMS RPT_ITS | Continuity of Care Document ---
:1970 Author Organization [facility] Address [address] [place] [address] Phone Care Team Providers Name Role Phone [...] 0 days Quantity: 40 {Tablet} Refills: 1 Ordered:21-May-2018 Galileo GARCIA, Shanika Mendez MD, Shanika Goldstein Start : 21-May-2018 Active POTASSIUM CHLORIDE ER, 20MEQ (Oral Tablet [...] 0 days Quantity: 90 {Tablet} Refills: 1 Ordered:03-Mar-2018 Galileo GARCIA, Shanika Vasquez MD Start : 03-Mar-2018 Active Wellbutrin XL 300 MG Oral Tablet Extended Release 24 Hour 1 Tablet ER 24HR qd for 0 days Quantity: 90 {Tablet} Refills: 1 Ordered:03-Mar-2018 Galileo GARCIA, Shanika Vasquez MD Start : 03-Mar-2018 Active Zithromax Z-Elmer 250 MG Oral Tablet [...] Comments: had for about 6 months. 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 15-Nov-2016 Spine Cervical W/WO Contrast Result: Comments: See Note; NOTES: [facility] Imaging Services [address] [place] [address] Verda 4d Spine Cervical W/WO Contrast MR#: [id number] Acct: [id number] Name: MELANIE ABRAMS Rep #: [id number] : 1970 F 46 From: Charlene Gupta MD PCP: Shanika Peralta MD Status: REG CLI Study: Spine Cervical W/WO Contrast Date of Exam: 11/15/16 Exam# [id number] Ordering Dr: Shanika Peralta MD STUDY: MRI [...] at 18:0 6 EDT , Service support [phone], CC: Shanika Peralta MD 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 Call [facility] ([phone]) or report to the closest Emergency Room. Call 911 if necessary. 11/05/16 1751 &# 60;Electronically signed by Luca Dean MD> Date Luca Dean MD Cosigner Signature (If Indicated): Date CC: Shanika Peralta MD 05-Nov-2016 Brain W/WO Contrast Result: Comments: See Note; NOTES: [facility] Imaging Services [address] [place] [address] Verdana 4d Brain W/WO Contrast MR#: [id number] Acct: [id number] Name: MELANIE ABRAMS Rep #: [id number] : 1970 F 46 From: Anne Love MD PCP: Shanika Peralta MD Status: REG ER Study: Brain W/WO Contrast Date of Exam: 11/05/16 Exam# [id number] Ordering Dr: Luca Dean MD STUDY: MRI [...] at 17:22 EDT Tel , Service support [phone], CC: Shanika Peralta MD; Luca Dean MD 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 Call [facility] ([phone]) or report to the closest Emergency Room. Call 911 if necessary. 09/27/16 0808 <Electronically signed by Yahir Green MD> Date __ Yahir Green MD Cosigner Signature (If Indicated): Date CC: Shanika Peralta MD 27-Sep-2016 Emergency Department Summary Result: Comments: See Note; NOTES: [facility] Medical Records Department [address] [place] [address] Emergency Department Summary MR#: [id number] Acct: [id number] Name: MELANIE ABRAMS Rep #: [id number] : 1970 46 From: Yahir Green MD [...] C: Shanika Peralta MD T: [facility] JOB: [id number] 09/27/16 0808 <Electronically signed by Yahir Green MD> Date ___ Yahir Green MD Cosigner Signature (If Indicated): Date CC: Shanika Peralta MD Date Dictated: 07/29/16238 Date Transcribed: 07/29/16238 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: Signed 14-Jun-2016 Brain W/WO Contrast Result: Comments: See Note; NOTES: [facility] Imaging Services [address] [place] [address] Verdana 4d Brain W/WO Contrast MR#: [id number] Acct: [id number] Name: MELANIE ABRAMS Rep # : [id number] : 1970 F 46 From: Donis Kent MD PCP: Shanika Peralta MD Status: REG CLI Study: Brain W/WO Contrast Date of Exam: 06/14/16 Exam# [id number] Ordering Dr: Shanika Peralta MD STUDY: MR [...] MD at 16:13 EDT , Service support [phone], CC: Shanika Peralta MD 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, [address] GAP 6 (Normal) Range: 5-15 CO2 27.0 [...] Comments: Please note revised GLUCOSE reference range txrniuuuf34/02/2018. 19-Slt-118084:59 Free T3 Comments: [facility] [address] [place], [place], [address] FREE T3 2.5 pg/mL (Normal) Range: 2.18-3.98 74-Qnp-641507:59 Magnesium Comments: [facility] [address] [place], [phone](205 MG 2.2 mg/dL (Normal) Range: 1.6-2.6 21-Seh-467884:59 T4 Free Direct Comments: [facility] [address] [place], [place], [address] T4 FREE DIRECT 1.20 ng/dL (Normal) Range: 0.76-1.46 41-Bca-803088:52 Urinalysis, Office (87860) UA - LEUKOCYTE ESTERASE Trace (Normal) UA - NITRITE Negative (Normal) URINE UROBILINGN JOHN TIMED 2 mg/dL (Normal) UA - PROTEIN Negative mg/dL (Normal) UA - PH 7.0 (Normal) UA - BLOOD Hemolyzed Small (Normal) UA - SPECIFIC GRAVITY 1.000 (Normal) UA - KETONES Negative mg/dL (Normal) UA - BILIRUBIN Negative (Normal) UA - GLUCOSE Negative (Normal) 30-Txx-981223:29 CBC WITH MANUAL DIFF (92255) Comments: PATIENT NOT FASTINGPERFORMED BY: [facility] Dotdrl2840 [facility] [id number] Immature Grans (Abs) 0.0 {x10E3/uL} (Normal) Range: [...] 3.77-5.28 WBC 5.5 {x10E3/uL} (Normal) Range: 3.4-10.8 93-Cgg-688849:29 Metabolic Panel, Comprehensive Comments: PATIENT NOT FASTINGPERFORMED BY: [facility] Bezqvr2904 [facility] [id number] (70467) ALT (SGPT) 12 [iU]/L (Normal) Range: 0-32 [...] Glucose, Serum 76 mg/dL (Normal) Range: 65-99 7-Udr-241234:55 TSH (26858) Comments: PATIENT NOT FASTINGPERFORMED BY: [facility] [id number] TSH 2.170 {uIU/mL} (Normal) Range: 0.450-4.500 :55 T4, FREE (THYROXINE) (64316) Comments: PATIENT NOT FASTINGPERFORMED BY: [facility] [id number] T4,Free(Direct) 1.71 ng/dL (Normal) Range: 0.82-1.77 :09 Basic Metabolic Profile (BMP) Comments: [facility] [address] [place], [address] GAP 9 (Normal) Range: 5-15 CO2 27.0 [...] mg/dL (Normal) Range: 70-110 :09 Magnesium Comments: [facility] [address] [place], [place], [address] MG 2.3 mg/dL (Normal) Range: 1.8-2.4 54-Erv-504008:09 T4 Free Direct Comments: [facility] [address] [place], [address] T4 FREE DIRECT 1.55 ng/dL (Abnormal) Range: 0.76-1.46 18-Xrw-588837:09 Thyroid Stim Hormone (TSH) Comments: [facility] [address] [place], [address] TSH 0.58 {uIU/mL} (Normal) Range: 0.358-3.74 53-Kpi-923931:39 Basic Metabolic Profile (BMP) Comments: 'TROP' Serial specimen #1, #2, #3, or #4: [facility] [address] [place], [address] GAP 8 (Normal) Range: 5-15 CO2 27.0 [...] 7-18 GLU 91 mg/dL (Normal) Range: 70-110 77-Ufv-326405:39 CBC W/Diff, Automated Comments: [facility] [address] [place], [address] Absolute Lymph 1.39 {X10_3/ul} (Normal) Range: 0.83-4.51 [...] Range: 4.4-11.0 :39 Partial Thromboplast Time Comments: [facility] [address] [facility] [place], [place], [address] PTT 26.4 s (Normal) Range: 24.1-36.2 :39 Prothrombin Time w/INR Comments: [facility] [address] [facility] [place], [address] INR 1.0 (Normal) PROTIME 13.2 s (Normal) Range: 11.7-14.9 :39 Troponin-I Comments: 'TROP' Serial specimen #1, #2, #3, or #4: [facility] [address] [place], [address] TROPONIN-I < 0.02 ng/mL (Normal) Comments: TROPONIN-I EXPECTED VALUES <0.05 NEGATIVE 0.06 - 0.59 AT RISK OF OK > OR = 0.60 SUGGEST OK 33-Olt-734184:32 Bedside Glucose Comments: [facility] Laboratory[facility] [address] [place] [address] BEDSIDE GLU 99 mg/dL (Normal) Range: 70-110 Comments: MANAGEMENT OF PATIENT CARE PER NURSING PROTOCOL :15 Basic Metabolic Profile (BMP) Comments: [place] [address] [place], [address] GAP 9 (Normal) Range: 5-15 CO2 [...] Range: 70-110 :15 CBC W/Diff, Automated Comments: [facility] [address] [place], [address] Absolute Lymph 2.99 {X10_3/ul} (Normal) Range: [...] K/mm3 (Abnormal) Range: 4.4-11.0 :15 Lipase Comments: [facility] [address] [place], [place], [address] LIPASE 109 U/L (Normal) Range: 73-393 :15 Liver Profile Comments: [facility] [address] [facility]. [place], [place], [address] D BILI 0.23 mg/dL (Normal) Range: 0.00-0.30 T BILI 0.80 mg/dL (Normal) Range: 0.20-1.00 ALT 18 U/L (Normal) Range: 12-78 ALK P 105 U/L (Normal) Range: 45-117 AST 27 U/L (Normal) Range: 15-37 GLOB 4.0 g/dL (Abnormal) Range: 2.3-3.5 ALB 3.6 g/dL (Normal) Range: 3.4-5.0 T PROT 7.6 g/dL (Normal) Range: 6.4-8.2 :14 Rapid Flu (69924 x 2) Influenza A Ag positive B [...] processing 11/18/11,RESULTS FAXED TO DR. PERALTA 11/18/11 5965 MARIO TELLO. Comments: Scanned image report available in PCI.See LAB REFERENCE RESULTS form. :13 PHOS 3.4 mg/dL (Normal) Comments: DR. ARIAS ORDERED BMP, MG AND PHOS.DR. PERALTA ORDERED T3F, T4F, TSH, CORTISOL(FREE), ACTH,SOMATOMEDIN, DHEA, CMP Range: 2.5-4.9 :13 SOMA 38 ng/mL (Abnormal) Range: 101-267 Comments: Performed at: [place] [id number] Director: Roberta Pandya MD, Phone: [phone] :13 T4F 1.18 ng/dL (Normal) Comments: DR. ARIAS ORDERED BMP, MG AND PHOS.DR. PERALTA ORDERED T3F, T4F, TSH, CORTISOL(FREE), ACTH,SOMATOMEDIN, DHEA, CMP Range: 0.76-1.46 :13 TSH 1.24 {uIU/mL} (Normal) Comments: DR. ARIAS ORDERED BMP, MG AND PHOS.DR. PERALTA ORDERED T3F, T4F, TSH, CORTISOL(FREE), ACTH,SOMATOMEDIN, DHEA, CMP Range: 0.358-3.74 25-Hrl-168688:51 COMP METABOLIC CO2 27.0 mmol/L (Normal) Range: [...] (Abnormal) GLU 83 mg/dL (Normal) Range: 70-110 78-Mtq-300234:47 ABDOMEN/PELVIS WITH CONTRAST Radiology Report See Note (Normal) Comments: Exam Number: [id number] CLINICAL:Left lower quadrant pain. CT ABDOMEN WITH [...] the pelvis. Reported By: PAVEL DELACRUZ M.D. 0-Hwl-511244:55 DUPLEX ARTERIAL FLOW,LMT () Radiology Report See Note (Normal) Comments: Exam Number: [id number] PELVIC ULTRASOUND HISTORYLeft lower quadrant pain, right [...] ovaries. There is no free fluid in qgfdhf-gn-yco. IMPRESSION1. There is a small amount of fluid in the endometrial canal which maria teresa nonspec ific finding. 2. The ovaries are within normal limits.3. No free fluid is seen in the cul-de-sac. Reported By: YOEL NI M.D. 7-Gmw-418691:30 TRANSVAGINAL NON-PREG US () Radiology Report See Note (Normal) Comments: Exam Number: [id number] PELVIC ULTRASOUND HISTORYLeft lower quadrant pain, right [...] ovaries. There is no free fluid in nyfzkv-wk-oir. IMPRESSION1. There is a small amount of fluid in the endometrial canal which maria teresa nonspec ific finding. 2. The ovaries are within normal limits.3. No free fluid is seen in the cul-de-sac. Reported By: YOEL NI M.D. 9-Ria-172638:28 PELVIC (NON-PREG) (HP) Radiology Report See Note (Normal) Comments: Exam Number: [id number] PELVIC ULTRASOUND HISTORYLeft lower quadrant pain, right [...] ovaries. There is no free fluid in ettrvg-er-zvi. IMPRESSION1. There is a small amount of fluid in the endometrial canal which maria teresa nonspec ific finding. 2. The ovaries are within normal limits.3. No free fluid is seen in the cul-de-sac. Reported By: YOEL NI M.D. 91-Jns-233060:29 Urinalysis, Office (77436) UA - BILIRUBIN Small (Normal) UA - BLOOD Hemolyzed Large (Normal) UA - GLUCOSE Negative (Normal) UA - KETONES Small mg/dL (Normal) UA - LEUKOCYTE ESTERASE Trace (Normal) UA - NITRITE Negative (Normal) UA - PH 6.0 (Normal) UA - PROTEIN 100 mg/dL (Normal) UA - SPECIFIC GRAVITY 1.025 (Normal) URINE UROBILINGN JOHN TIMED 2 mg/dL (Normal) 12-Ock-38296:00 CULTURE, URINE URINE CULTURE See Note {CFU/mL} [...] :00 TSH 1.55 {uIU/mL} (Normal) Range: 0.34-4.82 89-Fqk-301392:40 CORONALS,SAG,MULTI,OBL,3-D REC Radiology Report See Note (Normal) Comments: Exam Number: [id number] CT SCAN OF SINUSES AND FACIAL BONES [...] is identified. Reported By: YOEL NI M.D. 22-Jzm-223186:40 SINUS/FACIAL BONE WITHOUT CONT Radiology Report See Note (Normal) Comments: Exam Number: [id number] CT SCAN OF SINUSES AND FACIAL BONES [...] is identified. Reported By: YOEL NI M.D. 81-Dkq-372800:10 CULTURE, NOSE GRAM STAIN See Note (Normal) Comments: GRAM STAIN RARE EPITHELIAL CELLS 1+ GRAM POSITIVE COCCI NASAL CULTURE See Note (Normal) Comments: NORMAL KEN AMOUNT GROWTH 1+ ORGANISM 1: COAG NEGATIVE STAPH 82-Rwo-20550:40 ACTH 4440 < 5 pg/mL (Abnormal) Range: 6-48 84-Lfz-52231:40 CBCD BASO% 0.5 % (Normal) Range: 0-1 [...] 7.9 g/dL (Normal) Range: 6.4-8.2 :40 INSULIN [id number] 80 ng/mL (Abnormal) Range: 109-284 :40 T3, FREE 50386 2.7 pg/mL (Normal) Range: 2.3-4.2 Comments: Performed At: [facility] [address] [place], [place] [id number] At: [facility] [address] [place], [place] [id number] :40 T4 FREE,DIRECT 1.3 ng/dL (Normal) Range: 0.89-1.76 :40 TEST FR 800708 <0.2 pg/mL (Normal) Range: 0.0-2.2 :40 TSH [...] pituitary hormones) Planned Observations T4, FREE (THYROXINE) (02790)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) On: 44-Fmj-249356:33 Request T3, FREE (TRIDOTHYRONINE) (04434)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) On: 80-Gdx-847778:33 Request Magnesium (40445)Indication: Alterations of sensations On: 30-Lwx-002094:33 Request Metabolic Panel, Basic (63977)Indication: Alterations of sensations On: 83-Hrr-462023:32 Request T4, FREE (THYROXINE) (13772)Indication: Alterations of sensations On: 14-Hfg-907482:31 Request TSH (70055)Indication: Alterations of sensations On: :31 Request Magnesium (80060)Indication: Alterations of sensations On: :31 Request Metabolic Panel, Comprehensive (80106)Indication: Alterations of sensations On: :30 Request Total Protein,24 Hour Urine (11158)Indication: Abnormal blood creatinine level On: 01-Aug-20166:08 Request CREATININE CLEARANCE (51265)Indication: Abnormal blood creatinine level On: :08 Request CBC WITH MANUAL DIFF (62292)Indication: Dehydration On: :00 Request Comments: recheck in one week Metabolic Panel, Basic (34407)Indication: Dehydration On: : Request Comments: recheck in one week Metabolic Panel, Basic (16431)Indication: Alterations of sensations On: 01-Ggy-609663:36 Request Potassium Serum (68187)Indication: Hypokalemia On: 72-Zhc-021033:52 Request Magnesium (57018)Indication: Hypokalemia On: 38-Vlx-349017:52 Request Metabolic Panel, Comprehensive (07168)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) On: :07 Request DHEA (DEHYDROEPIANDROSTERONE) (90142)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) On: :07 Request SOMATOMEDIN (20507)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) On: :07 Request CORTISOL FREE (55756)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) On: :07 Request TSH (02881)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) On: :07 Request T4, FREE (THYROXINE) (97033)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) On: : Request T3, FREE (TRIDOTHYRONINE) (72290)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) On: :07 Request ACTH (59472)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) On: :05 Request URINE GILL CULTURE-JOHN COL COUNT (41155)Indication: Dysuria On: :29 Request BACT CULTURE ANY-ANAEROBIC (35505)Indication: Chronic sinusitis On: 03-Fqk-586634:30 Request GILL CULTURE-OTHER (69779)Indication: Chronic sinusitis On: :30 Request INSULIN TOLERANCE PANEL; FOR GROWTH HORMONE DEFICIENCY (78203)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) On: :45 Request TESTOSTERONE FREE (37778)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) On: :45 Request CORTISOL FREE (92340)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) On: :42 Request ACTH (94015)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) On: :42 Request T3, FREE (TRIDOTHYRONINE) (35664)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) On: :42 Request T4, FREE (THYROXINE) (03898)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) On: :42 Request TSH (18028)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) On: :42 Request CBC (Auto) (22168)Indication: Depressive disorder On: :42 Request Metabolic Panel, Comprehensive (41368)Indication: Depressive disorder On: :42 Request CBC WITH MANUAL DIFF (91890)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) On: :13 Request URINALYSIS W/O MICRO (17676)Indication: Hypokalemia On: :13 Request TSH (08417)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) On: :12 Request METABOLIC PANEL, COMPREHENSIVE (73727)Indication: Hypokalemia On: :12 Request Comments: 2 weeks LIPID PANEL (18491)Indication: Family history of ischemic heart disease On: :12 Request Planned Procedures ELECTROCARDIOGRAM, COMPLETE (ECG) On: 16-Dec-2017 Intent (49425)By: Shanika Peralta MD Comments: see scanned document of test done to see results reviewed today with patient Shanika Peralta MD INFUSION, NORMAL SALINE SOLUTION , On: 15-Dec-2017 Intent 1000 CC (Special Coverage Comments: lot:[id number]:rte: IV left anticubital dose: 1000ml sodium chloride given by: shania conrad ABN signedtolerated without difficulty ER, RN TELEHEALTH 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 See MCM: 9) (J7030)By: Shanika Peralta MD, MD, Dana M MAMMOGRAM BREAST BILATERAL SCREENING On: 04-Nov-2017 Intent DIGITAL (98310)By: Marilyn Aranda DO SCREENING DIGITAL TOMOSYNTHESIS OF On: 03-Nov-2017 Intent BREAST (40791)By: Shanika Peralta MD, MD, Dana M MRI OF CERVICAL SPINE WITH AND On: 06-Nov-2016 Intent WITHOUT CONTRAST (72482)By: Shanika Peralta MD, MD, Dana M MRI OF BRAIN WITH AND WITHOUT On: 05-Nov-2016 Intent CONTRAST (90184)By: Shanika Peralta MD, MD, Dana M MRI OF BRAIN WITH AND WITHOUT On: 10-Jun-2016 Intent CONTRAST (92372)By: Shanika Peralta MD, MD, Dana M Aerosol Treatment (26233)By: Shaquille On: 28-Nov-2014 Intent 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
--- OUTSIDE RECORDS SUMMARY | 2018-11-16 05:38 | XMS RPT_ITS | Continuity of Care Document ---
:1970 Author Organization [facility] Address [address] [place] [address] Phone Care Team Providers Name Role Phone Galileo GARCIA, Shanika Goldstein Unavailable Joy Sandra Unavailable Valentin Pérez Unavailable Dafne Vail Unavailable Latrice Sharma Unavailable Unavailable Lloyd Zuniga [...] {Tablet} Refills: 1 Ordered:11-Aug-2018 Galileo GARCIA, Shanika Vaqsuez MD Start : 11-Aug-2018 Active POTASSIUM CHLORIDE [...] days Quantity: 30 {Capsule} Refills: 0 Ordered:24-Feb-2012 Galileo GARCIA, Shanika Mendez MD, Shanika Goldstein Start : 11-Nov-2011 End [...] days Quantity: 60 {Tablet_ER_12HR} Refills: 5 Ordered:30-Sep-2006 Arnaldo Gonzales LPNsie Start : 30-Sep-2006 End : 13-Apr-2007 Inactive [...] Comments: had for about 6 months. 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 will need ct scan [...] Comments: 8-14 just done. good. cholesterol good -. tetanus due 2015 Status: Inactive as of 18-Mar-2017 Procedures Date Value Details 26-Nov-2016 Emergency Department Summary Result: Comments: See Note; NOTES: [facility] Medical Records Department [address] [place] [address] Emergency Department Summary MR#: [id number] Acct: [id number] Name: MELANIE ABRAMS Rep #: [id number] : 1970 46 From: Luca Dean MD PCP: Shanika Peralta MD Status: [facility] ER DATE OF SERVICE: 11/05/2016 HISTORY OF [...] paresthesia. 2. History of hypopituitarism. DISPOSITION: Discharge. Luca Dean MD C C: Shanika Peralta MD T: NTS JOB: [id number] 11/26/16 1212 <Electronically signed by Luca Dean MD&#62 ; Date Luca Dean MD Cosigner Signature (If Indicated): Date CC: Shanika Peralta MD Date Dictated: 11/26/16 0754 Date Transcribed: 11/26/16753 Service Cleaner: Signed 15-Nov-2016 Spine Cervical W/WO Contrast Result: Comments: See Note; NOTES: [facility] Imaging Services [address] [place] [address] Verdana 4d Spine Cervical W/WO Contrast MR#: [id number] Acct: [id number] Name: MELANIE ABRAMS Rep #: [id number] : 1970 F 46 From: Charlene Gupta MD PCP: Shanika Peralta MD Status: REG CLI Study: Spine Cervical W/WO Contrast Date of Exam: 11/15/16 Exam# [id number] Ordering Dr: Shanika Peralta MD STUDY: MRI [...] at 18:0 6 EDT , Service support [phone], CC: Shanika Peralta MD Service Cleaner: Signed 05-Nov-2016 Discharge Instruction Result: Comments: See Note; NOTES: [facility] Medical Records Department [address] [place] [address] Discharge Instruction 11/05/16 1749 MR#: [id number] Acct: [id number] Name: Mara ABRAMS Rep #: [id number] : 1970 46 From: Luca Dean MD [...] your Primary Care Provider. Call [facility] ([phone]) or report to the closest Emergency Room. Call 911 if necessary. 11/05/16 1751 &# 60;Electronically signed by Luca Dean MD> Date Luca Dean MD Cosigner Signature (If Indicated): Date CC: Shanika Peralta MD 05-Nov-2016 Brain W/WO Contrast Result: Comments: See Note; NOTES: [facility] Imaging Services [address] [place] [address] Verdana 4d Brain W/WO Contrast MR#: [id number] Acct: [id number] Name: MELANIE ABRAMS Rep #: [id number] : 1970 F 46 From: Anne Love MD PCP: Shanika Peralta MD Status: REG ER Study: Brain W/WO Contrast Date of Exam: 11/05/16 Exam# [id number] Ordering Dr: Luca Dean MD STUDY: MRI [...] at 17:22 EDT Tel , Service support [phone], CC: Shanika Peralta MD; Luca Dean MD Service Cleaner: Signed 27-Sep-2016 Discharge Instruction Result: Comments: See Note; NOTES: [facility] Medical Records Department [address] [place] [address] Discharge Instruction 07/29/16 0144 MR#: [id number] Acct: [id number] Name: Mara ABRAMS Rep #: [id number] : 1970 46 From: Yahir Green MD [...] problems, contact your Primary Care Provider. Call [facility] ([phone]) or report to the closest Emergency Room. Call 911 if necessary. 09/27/16 0808 <Electronically signed by Yahir Green MD> Date __ Yahir Green MD Cosigner Signature (If Indicated): Date CC: Shanika Peralta MD 27-Sep-2016 Emergency Department Summary Result: Comments: See Note; NOTES: [facility] Medical Records Department [address] [place] [address] Emergency Department Summary MR#: [id number] Acct: [id number] Name: MELANIE ABRAMS Rep #: [id number] : 1970 46 From: Yahir Green MD [...] follow up with her primary care physician. Yahir Green MD C C: Shanika Peralta MD T: NTS JOB: [id number] 09/27/16 0808 <Electronically signed by Yahir Green MD> Date ___ Yahir Green MD Cosigner Signature (If Indicated): Date CC: Shanika Peratla MD Date Dictated: 07/29/16238 Date Transcribed: 07/29/16238 Service Cleaner: Signed 14-Jun-2016 Brain W/WO Contrast Result: Comments: See Note; NOTES: [facility] Imaging Services [address] [place] [address] Verdana 4d Brain W/WO Contrast MR#: [id number] Acct: [id number] Name: MELANIE ABRAMS Rep # : [id number] : 1970 F 46 From: Donis Kent MD PCP: Shanika Peralta MD Status: REG CLI Study: Brain W/WO Contrast Date of Exam: 06/14/16 Exam# [id number] Ordering Dr: Shanika Peralta MD STUDY: MR [...] MD at 16:13 EDT , Service support [phone], CC: Shanika Peralta MD Service Cleaner: Signed Family History Unknown Family Member Name [...] kg/m2 Body Surface Area Calculated 1.52 m2 25-Zis-323440:03 Temperature 97.6 f Comments: Method: Temporal Pulse [...] 0.00 cm Results Date Description Value Details 21-Apu-983491:59 Basic Metabolic Profile (BMP) Comments: [facility] [address] [place], [address] GAP 6 (Normal) Range: 5-15 CO2 27.0 [...] Comments: Please note revised GLUCOSE reference range yffvhkblk25/02/2018. 07-Fkh-222066:59 Free T3 Comments: [facility] [address] [place], [place], [address] FREE T3 2.5 pg/mL (Normal) Range: 2.18-3.98 30-Qeu-523129:59 Magnesium Comments: [facility] [address] [place], [address] MG 2.2 mg/dL (Normal) Range: 1.6-2.6 13-Hzt-490124:59 T4 Free Direct Comments: [facility] [address] [place], [place], [address] T4 FREE DIRECT 1.20 ng/dL (Normal) Range: 0.76-1.46 47-Qsb-992429:52 Urinalysis, Office (71915) UA - LEUKOCYTE ESTERASE Trace (Normal) UA - NITRITE Negative (Normal) URINE UROBILINGN JOHN TIMED 2 mg/dL (Normal) UA - PROTEIN Negative mg/dL (Normal) UA - PH 7.0 (Normal) UA - BLOOD Hemolyzed Small (Normal) UA - SPECIFIC GRAVITY 1.000 (Normal) UA - KETONES Negative mg/dL (Normal) UA - BILIRUBIN Negative (Normal) UA - GLUCOSE Negative (Normal) 65-Xjo-712903:29 CBC WITH MANUAL DIFF (74300) Comments: PATIENT NOT FASTINGPERFORMED BY: [facility] Gxlrrh4727 [facility] [id number] Immature Grans (Abs) 0.0 {x10E3/uL} (Normal) Range: [...] 3.77-5.28 WBC 5.5 {x10E3/uL} (Normal) Range: 3.4-10.8 91-Mzc-793131:29 Metabolic Panel, Comprehensive Comments: PATIENT NOT FASTINGPERFORMED BY: [facility] Falls[facility]fehtq0032 [facility] [id number] (24652) ALT (SGPT) 12 [iU]/L (Normal) Range: 0-32 [...] 76 mg/dL (Normal) Range: 65-99 :55 TSH (81280) Comments: PATIENT NOT FASTINGPERFORMED BY: [facility] FallsEuthkd8921 [facility] [id number] TSH 2.170 {uIU/mL} (Normal) Range: 0.450-4.500 :55 T4, FREE (THYROXINE) (89078) Comments: PATIENT NOT FASTINGPERFORMED BY: [facility] FallsAhuhod2403 [facility] [id number] T4,Free(Direct) 1.71 ng/dL (Normal) Range: 0.82-1.77 54-Fwl-532032:09 Basic Metabolic Profile (BMP) Comments: [facility] [address] [place], [address] GAP 9 (Normal) Range: 5-15 CO2 27.0 [...] mg/dL (Normal) Range: 70-110 :09 Magnesium Comments: [facility] [address] [place], [address] MG 2.3 mg/dL (Normal) Range: 1.8-2.4 :09 T4 Free Direct Comments: [facility] [address] [place], [address] T4 FREE DIRECT 1.55 ng/dL (Abnormal) Range: 0.76-1.46 30-Iky-094760:09 Thyroid Stim Hormone (TSH) Comments: [facility] [address] [place], [address] TSH 0.58 {uIU/mL} (Normal) Range: 0.358-3.74 :39 Basic Metabolic Profile (BMP) Comments: 'TROP' Serial specimen #1, #2, #3, or #4: [facility] [address] [place], [address] GAP 8 (Normal) Range: 5-15 CO2 27.0 [...] 7-18 GLU 91 mg/dL (Normal) Range: 70-110 :39 CBC W/Diff, Automated Comments: [facility] [address] [place], [address] Absolute Lymph 1.39 {X10_3/ul} (Normal) Range: 0.83-4.51 [...] Range: 4.4-11.0 :39 Partial Thromboplast Time Comments: [facility] [address] [place], [address] PTT 26.4 s (Normal) Range: 24.1-36.2 :39 Prothrombin Time w/INR Comments: [facility] [address] [place], [address] INR 1.0 (Normal) PROTIME 13.2 s (Normal) Range: 11.7-14.9 57-Qli-021371:39 Troponin-I Comments: 'TROP' Serial specimen #1, #2, #3, or #4: 1[facility] [address] [place], [address] TROPONIN-I < 0.02 ng/mL (Normal) Comments: TROPONIN-I EXPECTED VALUES <0.05 NEGATIVE 0.06 - 0.[address] > OR = 0.[address] 20-Zyf-370472:32 Bedside Glucose Comments: [facility] LaboratoryPoint of [address] [place] [address] BEDSIDE GLU 99 mg/dL (Normal) Range: 70-110 Comments: MANAGEMENT OF PATIENT CARE PER NURSING PROTOCOL :15 Basic Metabolic Profile (BMP) Comments: [facility] [address] [place], [address] GAP 9 (Normal) Range: 5-15 [...] Range: 70-110 :15 CBC W/Diff, Automated Comments: [facility] [address] [place], [address] Absolute Lymph 2.99 {X10_3/ul} (Normal) Range: [...] K/mm3 (Abnormal) Range: 4.4-11.0 :15 Lipase Comments: [facility] [address] [place] [address], [id number] LIPASE 109 U/L (Normal) Range: 73-393 :15 Liver Profile Comments: [facility] [address] [place], [place], [id number] D BILI 0.23 mg/dL (Normal) Range: 0.00-0.30 T BILI 0.80 mg/dL (Normal) Range: 0.20-1.00 ALT 18 U/L (Normal) Range: 12-78 ALK P 105 U/L (Normal) Range: 45-117 AST 27 U/L (Normal) Range: 15-37 GLOB 4.0 g/dL (Abnormal) Range: 2.3-3.5 ALB 3.6 g/dL (Normal) Range: 3.4-5.0 T PROT 7.6 g/dL (Normal) Range: 6.4-8.2 :14 Rapid Flu (19622 x 2) Influenza A Ag positive B [...] processing 11/18/11,RESULTS FAXED TO DR. PERALTA 11/18/11 9518 MARIO TELLO. Comments: Scanned image report available in PCI.See LAB REFERENCE RESULTS form. :13 PHOS 3.4 mg/dL (Normal) Comments: DR. ARIAS ORDERED BMP, MG AND PHOS.DR. PERALTA ORDERED T3F, T4F, TSH, CORTISOL(FREE), ACTH,SOMATOMEDIN, DHEA, CMP Range: 2.5-4.9 :13 SOMA 38 ng/mL (Abnormal) Range: 101-267 Comments: Performed at: [address] [id number] Director: Roberta Pandya MD, Phone: [phone] :13 T4F 1.18 ng/dL (Normal) Comments: DR. ARIAS ORDERED BMP, MG AND PHOS.DR. PERALTA ORDERED T3F, T4F, TSH, CORTISOL(FREE), ACTH,SOMATOMEDIN, DHEA, CMP Range: 0.76-1.46 :13 TSH 1.24 {uIU/mL} (Normal) Comments: DR. ARIAS ORDERED BMP, MG AND PHOS.DR. PERALTA ORDERED T3F, T4F, TSH, CORTISOL(FREE), ACTH,SOMATOMEDIN, DHEA, CMP Range: 0.358-3.74 81-Yqk-158117:51 COMP METABOLIC CO2 27.0 mmol/L (Normal) Range: [...] (Abnormal) GLU 83 mg/dL (Normal) Range: 70-110 03-Vei-377824:47 ABDOMEN/PELVIS WITH CONTRAST Radiology Report See Note (Normal) Comments: Exam Number: [id number] CLINICAL:Left lower quadrant pain. CT ABDOMEN WITH [...] the pelvis. Reported By: PAVEL DELACRUZ M.D. 9-Kzo-300985:55 DUPLEX ARTERIAL FLOW,LMT () Radiology Report See Note (Normal) Comments: Exam Number: [id number] PELVIC ULTRASOUND HISTORYLeft lower quadrant pain, right [...] ovaries. There is no free fluid in tokllc-gu-wje. IMPRESSION1. There is a small amount of fluid in the endometrial canal which maria teresa nonspec ific finding. 2. The ovaries are within normal limits.3. No free fluid is seen in the cul-de-sac. Reported By: YOEL NI M.D. 2-Sjd-155539:30 TRANSVAGINAL NON-PREG US () Radiology Report See Note (Normal) Comments: Exam Number: [id number] PELVIC ULTRASOUND HISTORYLeft lower quadrant pain, right [...] ovaries. There is no free fluid in bzssey-oy-zau. IMPRESSION1. There is a small amount of fluid in the endometrial canal which maria teresa nonspec ific finding. 2. The ovaries are within normal limits.3. No free fluid is seen in the cul-de-sac. Reported By: YOEL NI M.D. 9-Syk-444937:28 PELVIC (NON-PREG) (HP) Radiology Report See Note (Normal) Comments: Exam Number: [id number] PELVIC ULTRASOUND HISTORYLeft lower quadrant pain, right [...] ovaries. There is no free fluid in tlknfg-jd-lla. IMPRESSION1. There is a small amount of fluid in the endometrial canal which maria teresa nonspec ific finding. 2. The ovaries are within normal limits.3. No free fluid is seen in the cul-de-sac. Reported By: YOEL NI M.D. 67-Mso-610317:29 Urinalysis, Office (78207) UA - BILIRUBIN Small (Normal) UA - BLOOD Hemolyzed Large (Normal) UA - GLUCOSE Negative (Normal) UA - KETONES Small mg/dL (Normal) UA - LEUKOCYTE ESTERASE Trace (Normal) UA - NITRITE Negative (Normal) UA - PH 6.0 (Normal) UA - PROTEIN 100 mg/dL (Normal) UA - SPECIFIC GRAVITY 1.025 (Normal) URINE UROBILINGN JOHN TIMED 2 mg/dL (Normal) 01-Eis-91350:00 CULTURE, URINE URINE CULTURE See Note {CFU/mL} (Normal) Comments: COLONY COUNT <1000 ORGANISM 1: MIXED GRAM POSITIVE ORGANISMS 5-Ufg-706403:00 BMP BUN 12 mg/dL (Normal) Range: 7-18 [...] 3.5-5.1 NA 143 mmol/L (Normal) Range: 136-145 3-Sqq-027901:00 MG 2.2 mg/dL (Normal) Range: 1.5-2.2 2-Ind-615565:00 TSH 1.55 {uIU/mL} (Normal) Range: 0.34-4.82 69-Bou-266825:40 CORONALS,SAG,MULTI,OBL,3-D REC Radiology Report See Note (Normal) Comments: Exam Number: [id number] CT SCAN OF SINUSES AND FACIAL BONES [...] is identified. Reported By: YOEL NI M.D. 97-Zzd-622926:40 SINUS/FACIAL BONE WITHOUT CONT Radiology Report See Note (Normal) Comments: Exam Number: [id number] CT SCAN OF SINUSES AND FACIAL BONES [...] is identified. Reported By: YOEL NI M.D. 23-Sgv-178264:10 CULTURE, NOSE GRAM STAIN See Note (Normal) Comments: GRAM STAIN RARE EPITHELIAL CELLS 1+ GRAM POSITIVE COCCI NASAL CULTURE See Note (Normal) Comments: NORMAL KEN AMOUNT GROWTH 1+ ORGANISM 1: COAG NEGATIVE STAPH 11-Nwz-10098:40 ACTH 4440 < 5 pg/mL (Abnormal) Range: 6-48 02-Cgd-48479:40 CBCD BASO% 0.5 % (Normal) Range: 0-1 [...] 7.9 g/dL (Normal) Range: 6.4-8.2 :40 INSULIN TO47752 80 ng/mL (Abnormal) Range: 109-284 :40 T3, FREE 48244 2.7 pg/mL (Normal) Range: 2.3-4.2 Comments: Performed At: [facility] [id number] At: [facility] Kkgsym[address] [place], [place] [id number] :40 T4 FREE,DIRECT 1.3 ng/dL (Normal) Range: 0.89-1.76 :40 TEST FR 964170 <0.2 pg/mL (Normal) Range: 0.0-2.2 :40 TSH [...] pituitary hormones) Planned Observations T4, FREE (THYROXINE) (37328)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) On: 16-Csv-662226:33 Request T3, FREE (TRIDOTHYRONINE) (73868)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) On: 96-Zsd-654055:33 Request Magnesium (77343)Indication: Alterations of sensations On: 58-Zvs-381853:33 Request Metabolic Panel, Basic (32016)Indication: Alterations of sensations On: 19-Nzj-461563:32 Request T4, FREE (THYROXINE) (08361)Indication: Alterations of sensations On: :31 Request TSH (57755)Indication: Alterations of sensations On: : Request Magnesium (26588)Indication: Alterations of sensations On: :31 Request Metabolic Panel, Comprehensive (37507)Indication: Alterations of sensations On: :30 Request Total Protein,24 Hour Urine (17487)Indication: Abnormal blood creatinine level On: :08 Request CREATININE CLEARANCE (62313)Indication: Abnormal blood creatinine level On: :08 Request CBC WITH MANUAL DIFF (16934)Indication: Dehydration On: : Request Comments: recheck in one week Metabolic Panel, Basic (81192)Indication: Dehydration On: : Request Comments: recheck in one week Metabolic Panel, Basic (49030)Indication: Alterations of sensations On: 21-Vku-938762:36 Request Potassium Serum (17169)Indication: Hypokalemia On: 66-Egv-027142:52 Request Magnesium (48456)Indication: Hypokalemia On: 43-Eqy-811544:52 Request Metabolic Panel, Comprehensive (58803)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) On: : Request DHEA (DEHYDROEPIANDROSTERONE) (55726)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) On: : Request SOMATOMEDIN (49456)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) On: : Request CORTISOL FREE (33391)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) On: : Request TSH (01059)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) On: :07 Request T4, FREE (THYROXINE) (50567)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) On: :07 Request T3, FREE (TRIDOTHYRONINE) (80626)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) On: :07 Request ACTH (69199)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) On: :05 Request URINE GILL CULTURE-JOHN COL COUNT (23947)Indication: Dysuria On: 17-Oqi-131796:29 Request BACT CULTURE ANY-ANAEROBIC (98723)Indication: Chronic sinusitis On: :30 Request GILL CULTURE-OTHER (88437)Indication: Chronic sinusitis On: :30 Request INSULIN TOLERANCE PANEL; FOR GROWTH HORMONE DEFICIENCY (63249)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) On: :45 Request TESTOSTERONE FREE (75220)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) On: :45 Request CORTISOL FREE (52308)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) On: :42 Request ACTH (98585)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) On: :42 Request T3, FREE (TRIDOTHYRONINE) (79217)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) On: :42 Request T4, FREE (THYROXINE) (95360)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) On: :42 Request TSH (66906)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) On: :42 Request CBC (Auto) (57134)Indication: Depressive disorder On: :42 Request Metabolic Panel, Comprehensive (40363)Indication: Depressive disorder On: 22-Cii-41654:42 Request CBC WITH MANUAL DIFF (47603)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) On: :13 Request URINALYSIS W/O MICRO (26312)Indication: Hypokalemia On: :13 Request TSH (59026)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) On: :12 Request METABOLIC PANEL, COMPREHENSIVE (88705)Indication: Hypokalemia On: :12 Request Comments: 2 weeks LIPID PANEL (12260)Indication: Family history of ischemic heart disease On: :12 Request Planned Encounters Medical; [facility] Other Symptoms - On: 14-Sep-2018 15:30 [facility] Shanika Peralta MD, MD, Dana M Medical; [facility] Pre Wellness Exam (DB Nurse) - On: 18-Sep-2018 10:30 [facility] JUANA Griffin; [facility] Wellness Exam (Doctor) - On: 09-Oct-2018 13:00 [facility] Shanika Peralta MD, MD, Dana M Planned Procedures CHEST XRAY, PA & LATERAL On: 11-Sep-2018 Intent (29991)By: Shanika Peralta MD Comments: WET read please call to Dr. Peralta, on-call doctor Shanika Peralta MD ELECTROCARDIOGRAM, COMPLETE (ECG) On: 16-Dec-2017 Intent (64520)By: Shanika Peralta MD Comments: see scanned document of test done to see results reviewed today with patient Shanika Peralta MD INFUSION, NORMAL SALINE SOLUTION , On: 15-Dec-2017 Intent 1000 CC (Special Coverage Comments: lot:[id number]: IV left anticubital dose: 1000ml sodium chloride given by: shania rollins ABN signedtolerated without difficulty ER, RETORT ENGINEER 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 See MCM: 9) (J7030)By: Shanika Peralta MD, MD, Dana M MAMMOGRAM BREAST BILATERAL On: 04-Nov-2017 Intent SCREENING DIGITAL (64883)By: Marilyn Aranda DO SCREENING DIGITAL TOMOSYNTHESIS OF On: 03-Nov-2017 Intent BREAST (82065)By: Shanika Peralta MD, MD, Dana M MRI OF CERVICAL SPINE WITH AND On: 06-Nov-2016 Intent WITHOUT CONTRAST (05129)By: Shanika Peralta MD, MD, Dana M MRI OF BRAIN WITH AND WITHOUT On: 05-Nov-2016 Intent CONTRAST (15257)By: Shanika Peralta MD, MD, Dana M MRI OF BRAIN WITH AND WITHOUT On: 10-Jun-2016 Intent CONTRAST (44356)By: Shanika Peralta MD, MD, Dana M Aerosol Treatment (73367)By: Shaquille On: 28-Nov-[address] - Abdomen & PelvisBy: Galileo On: 10-Jul-2009 Intent Shanika GARCIA MD, Dana M SPECIMEN HANDLING/TRANSPORT On: 03-Mar-2009 Intent (22066)By: Shanika Peralta MD, MD, Dana M CT - Sinuses CompleteBy: Shaquille On: 14-Oct-2007 Intent Jessie CASON Planned Medications INFUSION, NORMAL SALINE SOLUTION , 1000 CC Ordered: 15-Dec-2017 Pending Shanika Peralta MD, MD, Dana M Encounters Phone Encounter On: 11-Sep-2018 15:20 Encounter Diagnosis: [...]
--- OUTSIDE RECORDS SUMMARY | 2018-11-16 05:38 | XMS RPT_ITS ---
:1970 Author Organization OHIP Care Team Providers Name Role Phone Shanika Peralta MD Attending Unavailable Fast DOMarilyn A Referring Unavailable Shanika Peralta MD Consulting Unavailable SHANIKA PERALTA Referring Unavailable CHRISTOPHER DESAI Attending Unavailable EVELYN CHICAS Referring Unavailable Shanika Peralta Attending Unavailable Shanika Peralta Referring Unavailable Shanika Peralta Primary Care Unavailable Shanika Peralta Attending Unavailable Shanika Peralta Referring Unavailable [place]o, Shanika Primary Care Unavailable Purpose Purpose PROBLEMS PROBLEMS DATE TYPE CONDITION / CODE ATTENDING STATUS SOURCE 09/11/2018 Unknown R06.02 - Shanika Peralta Active [facility] breath [facility] R06.02(ICD-10) Repository 11/07/2017 Active Encounter for NA Active [facility] screening Main [place] mammogram for Repository malignant neoplasm of breast / Z12.31(ICD-10) PROCEDURES PROCEDURES No Procedure Records FoundVITAL SIGNS VITAL SIGNS No Vital Signs Records FoundRESULTS RESULTS CHEST PA AND LATERAL Observed: 09/11/2018 Status: F Source: [place] 3:59 PM [facility] REPOSITORY [facility] [address] [place] [address] Chest PA and Lateral MR#: [id number] Acct: [id number] Name: SHERRY ABRAMS Rep #: [id number] : 1970 F 48 From: Keith Mondragon MD PCP: Shanika Peralta MD Status: REG CLI Study: Chest PA and Lateral Date of Exam: 09/11/18 Exam# [id number] Ordering Dr: Sahnika Peralta MD STUDY: X-RAY CHEST REASON FOR EXAM: Female, 48 years old. Shortness of breath TECHNIQUE: PA and lateral views of the chest. COMPARISON: None. FINDINGS: There is hyperinflation of the lungs consistent with chronic obstructive lung disease (COPD). There is no demonstrated pleural abnormality. Normal size heart. Normal mediastinum and zaire. Normal visualized pulmonary arteries. Normal visualized aortic arch and descending thoracic aorta. Normal visualized thoracic spine. Normal visualized ribs, clavicles, and shoulders. There is no demonstrated abnormality of the visualized soft tissue structures of the upper abdomen. RAD/Chest PA and Lateral IMPRESSION: Findings suggestive of COPD. No acute cardiopulmonary disease process is noted. 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 LAB L501.1000 7-18 mg/dL Normal BUN 17 LAB L501.1100 0.55-1.02 mg/dL High CREAT,SERUM 1.36 Result Comment: The validity of the calculated GFR AND GFRAA in patients over 70 years has not been determined. Clinical correlation is essential. LAB L501.1110 >60 mL/min Low EST GFR 44 Result Comment: Non- GFR Calc LAB L501.1115 >60 mL/min Low EST GFR - AA 53 Result Comment: GFR Calc LAB L501.1300 10-20 RATIO Normal BUN/CRE 12.5 LAB L501.2200 8.5-10.1 mg/dL CA Normal 8.7 LAB L501.5300 136-145 mmol/L NA Normal 136 LAB L501.5600 3.5-5.1 mmol/L K Normal 3.9 LAB L501.5900 98-107 mmol/L CL Normal 103 LAB L501.6100 21.0-32.0 mmol/L Normal CO2 27.0 LAB L501.6200 5-15 Normal GAP 6 Performed By: #### L500.2500, L501.5200, L501.82327, L506.0400 #### [facility] [address] [place], [place], [address] MAGNESIUM Collected: 12/15/2017 Status: F Source: [place] 4:59 PM [facility] REPOSITORY TYPE CODE TESTS RESULT OUT OF RANGE REFERENCE UNITS LAB L501.5200 1.6-2.6 mg/dL Normal MG 2.2 Performed By: #### L500.2500, L501.5200, L501.36562, L506.0400 #### [facility] [address] [place], [address] FREE T3 Collected: 12/15/2017 Status: F Source: [place] 4:59 PM [facility] REPOSITORY TYPE CODE TESTS RESULT OUT OF RANGE REFERENCE UNITS LAB L501.88317 2.18-3.98 pg/mL Normal FREE T3 2.5 Performed By: #### L500.2500, L501.5200, L501.96413, L506.0400 #### [facility] [address] [place], [address] T4 FREE DIRECT Collected: 12/15/2017 Status: F Source: [place] 4:59 PM [facility] REPOSITORY TYPE CODE TESTS RESULT OUT OF RANGE REFERENCE UNITS LAB L506.0400 0.76-1.46 ng/dL Normal T4 FREE 1.20 DIRECT Performed By: #### L500.2500, L501.5200, L501.73051, L506.0400 #### [facility] [address] [place], [address] PROGRESS Observed: 12/11/2017 Status: COMPLETED Source: [place] 4:09 PM [facility] REPOSITORY HNO ID: [id number] Author: Christopher Desai Service: (none) Author Type: Physician Type: Progress Notes Filed: 01/10/2018 11:44 AM Note Text: Last Visit: 12/22/2015 Reason for follow up: Hypothyroidism, Adrenal insufficeny and Pituitary dysfunction New pt to me My final recommendations will be communicated back to the requesting physician by way of shared Medical record or letter via US mail. HISTORY OF PRESENT ILLNESS; Ms. Abrams is a 47 year old female presenting as a new patient to me regarding Hypothyroidism, Adrenal insufficeny and Pituitary dysfunction. She was initially diagnosed with a thyroid disorder 2000. patient of Dr. Marilyn Aranda, with history of pituitary macroadenoma. 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 She underwent surgery, was told the tumor was completely removed. She had pre-existing primary hypothyroidism. In 2003, she had profound weight loss and suffered adrenal crisis, and was diagnosed with secondary adrenal insufficiency. She is currently feeling well. No breast discharge, no polyuria, polydipsia. Medication list reviewed, reconciled. She reports she takes 2-3x bigger doses of Cortef for stress/pain/illness. She does have IM dexamethasone for home use, no interval ER visits for adrenal crisis. She has regular menses on an oral contraceptive. Allergic to penicillin. She has/wears a medical alert bracelet for adrenal insufficiency. Severity, modifying factors, context and associated signs and symptoms are as follows: ? Thyroid pain: no ? Mass effect: no difficulty swallowing ? Energy: stable and OK ? Sleep: Normal sleep pattern ? Temperature Intolerance: None ? 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 GI: denies loose stools, frequent stools or constipation ? Weight: increased, 6 lbs since last visit ? Eyes: No ? Memory: Good ? Diaphoresis: Not significant ? Skin: dry ? Neuro: negative ? Radiological imaging with contrast dyes within the last 3 months? no ? History of radiation exposure to head or neck area? no PAST MEDICAL HISTORY Diagnosis Date - Hypoglycemia, unspecified - PMH - PAST MEDICAL HISTORY OF 1985,1998 Bulimia - PMH - PAST MEDICAL HISTORY OF 04/03/2005 Adrenal Insufficiency - Unspecified hypothyroidism 1996 PAST SURGICAL HISTORY Procedure Laterality Date - EXCIS PITUITARY,TRANSNASAL/SEPTAL 2000 FAMILY HISTORY Problem Relation Age of Onset - Ischemic Heart Disease Mother - Hypertension Mother - Heart Mother IA - Diabetes Maternal Grandmother - Diabetes Paternal Uncle - MS [OTHER] Paternal Uncle none SOCIAL HISTORY Social History Substance Use Topics - Smoking status: Never Smoker - Smokeless tobacco: Never Used - Alcohol use No Comment: occ Current Outpatient Prescriptions: hydrocortisone (CORTEF) 5 mg tablet TAKE 2 TABLETS BY MOUTH EVERY MORNING AND ONE-HALF (1/2) TABLET EVERY BEDTIME ( DOUBLE DOSE FOR STRESS, ILLNESS ) Disp: 300 tablet Rfl: 0 Somatropin (HUMATROPE) 6 mg (18 unit) crtg Inject subcutaneous 0.6 mg once daily. Disp: 3 Each Rfl: 1 furosemide (LASIX) 20 mg tablet TAKE 1 TABLET BY MOUTH ONE TIME DAILY NEEDED Disp: 90 tablet Rfl: 1 alcohol swabs (BD SINGLE USE SWABS REGULAR) padm Use as needed for adrenal crisis. Disp: 100 Each Rfl: 3 SYNTHROID 88 mcg tablet Take 1 tablet by mouth once daily. Disp: 90 tablet Rfl: 3 Norethin-Eth Estrad Triphasic (JACLYN 28) 0.5/1/0.5-35 mg-mcg tab Take 1 tablet by mouth once daily. Disp: 3 Package Rfl: 3 buPROPion XL (WELLBUTRIN XL) 300 mg 24 hr tablet Take 1 tablet by mouth once daily. Disp: 90 tablet Rfl: 3 Syringe with Needle, Disp, (BD ECLIPSE LUER-CAMILO SYRINGE) 1 mL 27 x 1/2 syrg For prn use to inject dexamethasone for emergency use. Disp: 100 Syringe Rfl: 0 No current facility-administered medications for this visit. ALLERGIES ALLERGIES Allergen Reactions - Penicillins Rash MEDICAL RECORD REVIEW: Reviewed old notes from previous visits as well as labs from the available documentation. REVIEW OF SYSTEMS: Review of Systems: GENERAL: Fatigue no Malaise no Weight gained 6 lbs over 1 yr HEAD AND NECK: Headaches No, Visual Complaints No and Dizziness No CVS: Negative PULMONARY: Negative GI: Negative system: Polydipsia NO, Nocturia NO, Polyuria NO and Ice cravings NO Sex / Menstruation / OB Hx: Libido normal, Impotence: no, Hot Flashes: no, Puberty:normal, Menstrual History Regular and Hx of infertility no MUSCULOSKEL: Normal OTHER: Galactorrhea: no Mood changes: no Diaphoresis: No Easy Bruising Yes (steroid) PHYSICAL EXAM: Blood pressure 114/80, pulse 113, height 151.6 cm (4' 11.69), weight 54.1 kg (119 lb 3.2 oz), SpO2 100 %. Body mass index is 23.53 kg/m?. HEADANDNECK Visual Field Defect no, Diplopia no, Cranial Nerve Palsy no, Pupils Symmetric Yes, Light Reflex Normal, Coarse Facial Features No, Acne No, Peterson Face No and Thryoid Normal size, SKIN Normal, NEURO Normal, no focal neurological deficit, MUSCULOSKELETAL Normal, CVS Normal, PULMONARY Normal, ABDOMEN Normal, BREAST DISCHARGE no and OBESITY No DATA: No components found for: TOTALT4 Free T4 Date Value Ref Range Status 07/26/2016 1.4 0.9 - 1.7 ng/dL Final No components found for: TOTALT3 TSH Date Value Ref Range Status 07/26/2016 5.080 0.400 - 5.500 uU/mL Final Comment: If the patient is , TSH reference range varies by gestational period: First Trimester 0.1-2.5 uU/mL Second Trimester 0.2-3.0 uU/mL Third Trimester 0.3-3.0 uU/mL Free T3 Date Value Ref Range Status 07/12/2006 2.9 1.8 - 4.6 pg/mL Final Microsomal Antibody Date Value Ref Range Status 05/16/2001 328.5 (A) <5.0 IU/mL Final Social History: Social History Marital status: Spouse name: Domenico Years of education: 12 Number of children: 1 Occupational History 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 FTI No results within date range. T3 No results within date range. FREET3 No results within date range. FREET4 1.4 ng/dL 07/26/2016 1.7 0.9 FSH No results within date range. LH No results within date range. TESTFREE No results within date range. TESTOST No results within date range. PROL No results within date range. ALPSUB No results within date range. ILGF1 126 ng/mL 07/26/2016 249 75 GH No results within date range. DHEAS No results within date range. ACTH No results within date range. COR0 No results within date range. COR30 No results within date range. COR60 No results within date range. Lab Value Units Date High Low ALT No results within date range. 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 Check ant-pituitary hormonal/functional status. Plan: INSULIN LIK GR FAC I, T4 FREE/FREE THYROX, COMP METABOLIC PANEL, hydrocortisone (CORTEF) 5 mg tablet, SYNTHROID 88 mcg tablet, Syringe with Needle, Disp, (BD ECLIPSE LUER-CAMILO SYRINGE) 1 mL 27 x 1/2 syrg, hydrocortisone sodium succinate (SOLU-CORTEF) 100 mg injection (Z87.898) History of pituitary tumor Comment: pathophysiology AND treatment options discussed. monitor prolactin and other ant-pituitary hormone level. Last MRI in 2017 showed no mass, post surgical changes. As she has surgery in 2000, no need for MRI a this time. Plan: PROLACTIN BLD, COMP METABOLIC PANEL (E23.0) Growth hormone deficiency (HCC) Comment: pathophysiology AND treatment options discussed. Provide prescription. Monitor IGF-1. Plan: INSULIN LIK GR FAC I, COMP METABOLIC PANEL, DISCONTINUED: Somatropin (HUMATROPE) 6 mg (18 unit) crtg (E27.49) Secondary adrenal insufficiency (HCC) Comment: pathophysiology AND treatment options discussed. Provide prescription for emergency IM injections as per pt's request. Monitor clinically. sick day rules discussed. Plan: COMP METABOLIC PANEL, Syringe with Needle, Disp, (BD ECLIPSE LUER-CAMILO SYRINGE) 1 mL 27 x 1/2 syrg, hydrocortisone sodium succinate (SOLU-CORTEF) 100 mg injection (E03.9) Primary hypothyroidism Comment: pathophysiology AND treatment options discussed. Prescribe 88 mcg LT4. TSH may not be reliable due to presence of pituitary dysfunction. Monitor Free T4, adjust dose as needed. Plan: COMP METABOLIC PANEL, SYNTHROID 88 mcg tablet (E87.6) Hypokalemia Comment: check level AND Rx as needed. Plan: COMP METABOLIC PANEL Complex pt with multiple medical problems. New pt to me. Spent 40 mins face to face during this visi and >50% for pt counseling. Christopher Desai MD December 11, 2017 CNOV Observed: 12/11/2017 Status: COMPLETED Source: [place] 3:45 PM [facility] REPOSITORY Office Visit ([place]OR[place]) SHERRY ABRAMS ([id number]) 1970 F Date Time Provider Department 12/11/17 3:45 PM CHRISTOPHER DESAI During your visit today, we recorded the following information about you: Pulse Blood pressure Weight Height 113/minute 114/80 54.1 kg 1.516 m Christopher Desai MD 01/10/2018 11:44 AM Signed Last Visit: 12/22/2015 Reason for follow up: Hypothyroidism, Adrenal insufficeny and Pituitary dysfunction New pt to me My final recommendations will be communicated back to the requesting physician by way of shared Medical record or letter via US mail. HISTORY OF PRESENT ILLNESS; Ms. Abrams is a 47 year old female presenting as a new patient to me regarding Hypothyroidism, Adrenal insufficeny and Pituitary dysfunction. She was initially diagnosed with a thyroid disorder 2000. patient of Dr. Marilyn Aranda, with history of pituitary macroadenoma. 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 She underwent surgery, was told the tumor was completely removed. She had pre-existing primary hypothyroidism. In 2003, she had profound weight loss and suffered adrenal crisis, and was diagnosed with secondary adrenal insufficiency. She is currently feeling well. No breast discharge, no polyuria, polydipsia. Medication list reviewed, reconciled. She reports she takes 2-3x bigger doses of Cortef for stress/pain/illness. She does have IM dexamethasone for home use, no interval ER visits for adrenal crisis. She has regular menses on an oral contraceptive. Allergic to penicillin. She has/wears a medical alert bracelet for adrenal insufficiency. Severity, modifying factors, context and associated signs and symptoms are as follows: ? Thyroid pain: no ? Mass effect: no difficulty swallowing ? Energy: stable and OK ? Sleep: Normal sleep pattern ? Temperature Intolerance: None ? 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 GI: denies loose stools, frequent stools or constipation ? Weight: increased, 6 lbs since last visit ? Eyes: No ? Memory: Good ? Diaphoresis: Not significant ? Skin: dry ? Neuro: negative ? Radiological imaging with contrast dyes within the last 3 months? no ? History of radiation exposure to head or neck area? no PAST MEDICAL HISTORY Diagnosis Date - Hypoglycemia, unspecified - PMH - PAST MEDICAL HISTORY OF Bulimia - PMH - PAST MEDICAL HISTORY OF 04/03/2005 Adrenal Insufficiency - Unspecified hypothyroidism 1996 PAST SURGICAL HISTORY Procedure Laterality Date - EXCIS PITUITARY,TRANSNASAL/SEPTAL 2000 FAMILY HISTORY Problem Relation Age of Onset - Ischemic Heart Disease Mother - Hypertension Mother - Heart Mother IA - Diabetes Maternal Grandmother - Diabetes Paternal Uncle - MS [OTHER] Paternal Uncle none SOCIAL HISTORY Social History Substance Use Topics - Smoking status: Never Smoker - Smokeless tobacco: Never Used - Alcohol use No Comment: occ Current Outpatient Prescriptions: hydrocortisone (CORTEF) 5 mg tablet TAKE 2 TABLETS BY MOUTH EVERY MORNING AND ONE-HALF (1/2) TABLET EVERY BEDTIME ( DOUBLE DOSE FOR STRESS, ILLNESS ) Disp: 300 tablet Rfl: 0 Somatropin (HUMATROPE) 6 mg (18 unit) crtg Inject subcutaneous 0.6 mg once daily. Disp: 3 Each Rfl: 1 furosemide (LASIX) 20 mg tablet TAKE 1 TABLET BY MOUTH ONE TIME DAILY NEEDED Disp: 90 tablet Rfl: 1 alcohol swabs (BD SINGLE USE SWABS REGULAR) padm Use as needed for adrenal crisis. Disp: 100 Each Rfl: 3 SYNTHROID 88 mcg tablet Take 1 tablet by mouth once daily. Disp: 90 tablet Rfl: 3 Norethin-Eth Estrad Triphasic (JACLYN 28) 0.5/1/0.5-35 mg-mcg tab Take 1 tablet by mouth once daily. Disp: 3 Package Rfl: 3 buPROPion XL (WELLBUTRIN XL) 300 mg 24 hr tablet Take 1 tablet by mouth once daily. Disp: 90 tablet Rfl: 3 Syringe with Needle, Disp, (BD ECLIPSE LUER-CAMILO SYRINGE) 1 mL 27 x 1/2 syrg For prn use to inject dexamethasone for emergency use. Disp: 100 Syringe Rfl: 0 No current facility-administered medications for this visit. ALLERGIES ALLERGIES Allergen Reactions - Penicillins Rash MEDICAL RECORD REVIEW: Reviewed old notes from previous visits as well as labs from the available documentation. REVIEW OF SYSTEMS: Review of Systems: GENERAL: Fatigue no Malaise no Weight gained 6 lbs over 1 yr HEAD AND NECK: Headaches No, Visual Complaints No and Dizziness No CVS: Negative PULMONARY: Negative GI: Negative system: Polydipsia NO, Nocturia NO, Polyuria NO and Ice cravings NO Sex / Menstruation / OB Hx: Libido normal, Impotence: no, Hot Flashes: no, Puberty:normal, Menstrual History Regular and Hx of infertility no MUSCULOSKEL: Normal OTHER: Galactorrhea: no Mood changes: no Diaphoresis: No Easy Bruising Yes (steroid) PHYSICAL EXAM: Blood pressure 114/80, pulse 113, height 151.6 cm (4' 11.69), weight 54.1 kg (119 lb 3.2 oz), SpO2 100 %. Body mass index is 23.53 kg/m?. HEADANDNECK Visual Field Defect no, Diplopia no, Cranial Nerve Palsy no, Pupils Symmetric Yes, Light Reflex Normal, Coarse Facial Features No, Acne No, Peterson Face No and Thryoid Normal size, SKIN Normal, NEURO Normal, no focal neurological deficit, MUSCULOSKELETAL Normal, CVS Normal, PULMONARY Normal, ABDOMEN Normal, BREAST DISCHARGE no and OBESITY No DATA: No components found for: TOTALT4 Free T4 Date Value Ref Range Status 07/26/2016 1.4 0.9 - 1.7 ng/dL Final No components found for: TOTALT3 TSH Date Value Ref Range Status 07/26/2016 5.080 0.400 - 5.500 uU/mL Final Comment: If the patient is , TSH reference range varies by gestational period: First Trimester 0.1-2.5 uU/mL Second Trimester 0.2-3.0 uU/mL Third Trimester 0.3-3.0 uU/mL Free T3 Date Value Ref Range Status 07/12/2006 2.9 1.8 - 4.6 pg/mL Final Microsomal Antibody Date Value Ref Range Status 05/16/2001 328.5 (A) <5.0 IU/mL Final Social History: Social History Marital status: Spouse name: Domenico Years of education: 12 Number of children: 1 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 FTI No results within date range. T3 No results within date range. FREET3 No results within date range. FREET4 1.4 ng/dL 07/26/2016 1.7 0.9 FSH No results within date range. LH No results within date range. TESTFREE No results within date range. TESTOST No results within date range. PROL No results within date range. ALPSUB No results within date range. ILGF1 126 ng/mL 07/26/2016 249 75 GH No results within date range. DHEAS No results within date range. ACTH No results within date range. COR0 No results within date range. COR30 No results within date range. COR60 No results within date range. Lab Value Units Date High Low ALT No results within date range. 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 Check ant-pituitary hormonal/functional status. Plan: INSULIN LIK GR FAC I, T4 FREE/FREE THYROX, COMP METABOLIC PANEL, hydrocortisone (CORTEF) 5 mg tablet, SYNTHROID 88 mcg tablet, Syringe with Needle, Disp, (BD ECLIPSE LUER-CAMILO SYRINGE) 1 mL 27 x 1/2 syrg, hydrocortisone sodium succinate (SOLU-CORTEF) 100 mg injection (Z87.898) History of pituitary tumor Comment: pathophysiology AND treatment options discussed. monitor prolactin and other ant-pituitary hormone level. Last MRI in 2017 showed no mass, post surgical changes. As she has surgery in 2000, no need for MRI a this time. Plan: PROLACTIN BLD, COMP METABOLIC PANEL (E23.0) Growth hormone deficiency (HCC) Comment: pathophysiology AND treatment options discussed. Provide prescription. Monitor IGF-1. Plan: INSULIN LIK GR FAC I, COMP METABOLIC PANEL, DISCONTINUED: Somatropin (HUMATROPE) 6 mg (18 unit) crtg (E27.49) Secondary adrenal insufficiency (HCC) Comment: pathophysiology AND treatment options discussed. Provide prescription for emergency IM injections as per pt's request. Monitor clinically. sick day rules discussed. Plan: COMP METABOLIC PANEL, Syringe with Needle, Disp, (BD ECLIPSE LUER-CAMILO SYRINGE) 1 mL 27 x 1/2 syrg, hydrocortisone sodium succinate (SOLU-CORTEF) 100 mg injection (E03.9) Primary hypothyroidism Comment: pathophysiology AND treatment options discussed. Prescribe 88 mcg LT4. TSH may not be reliable due to presence of pituitary dysfunction. Monitor Free T4, adjust dose as needed. Plan: COMP METABOLIC PANEL, SYNTHROID 88 mcg tablet (E87.6) Hypokalemia Comment: check level AND Rx as needed. Plan: COMP METABOLIC PANEL Complex pt with multiple medical problems. New pt to me. Spent 40 mins face to face during this visi and >50% for pt counseling. Christopher Desai MD December 11, 2017 Referring Provider: EVELYN CHICAS [[id number]] Allergies As of Date: 12/11/2017 Noted Allergy Reaction PENICILLINS 10/28/2001 2 - Rash Date Reviewed: 12/11/2017 Reviewed by: Shauna Sepulveda Ma - Fully Assessed Reason for Visit: Thyroid Problem [110] Primary Visit Diagnosis:Hypopituitarism (HCC) [E23.0] Other Visit Diagnoses:History of pituitary tumor [Z87.898] Growth hormone deficiency (HCC) [E23.0] Secondary adrenal insufficiency (HCC) [E27.49] Primary hypothyroidism [E03.9] Hypokalemia [E87.6] Order(s):INSULIN LIK GR FAC I [SQILGF1] Order #: [id number] FUTURE T4 FREE/FREE THYROX [SQFT4] Order #: [id number] FUTURE PROLACTIN BLD [SQPROL] Order #: [id number] FUTURE COMP METABOLIC PANEL [SQCMP] Order #: [id number] FUTURE hydrocortisone (CORTEF) 5 mg tabletTAKE 2 TABLETS BY MOUTH EVERY MORNING AND ONE-HALF (1/2) TABLET EVERY BEDTIME ( DOUBLE DOSE FOR STRESS, ILLNESS )Disp: 300 tabletRfl: 3 SYNTHROID 88 mcg tabletTake 1 tablet by mouth once daily.Disp: 90 tabletRfl: 3 Syringe with Needle, Disp, (BD ECLIPSE LUER-CAMILO SYRINGE) 1 mL 27 x 1/2 syrgFor prn use to inject dexamethasone for emergency use.Disp: 100 SyringeRfl: 0 hydrocortisone sodium succinate (SOLU-CORTEF) 100 mg injectionInject 1 Vial intravenously as needed.Disp: 1 VialRfl: 0 Prescriptions as of 12/11/2017 Sig: HYDROCORTISONE 5 MG TABLET TAKE 2 TABLETS BY MOUTH EVERY* SYNTHROID 88 MCG TABLET Take 1 tablet by mouth once d* SYRINGE WITH NEEDLE 1 ML 27 X* For prn use to inject dexamet* X SOMATROPIN 6 MG (18 UNIT) INJ* Inject subcutaneous 0.6 mg on* FUROSEMIDE 20 MG TABLET TAKE 1 TABLET BY MOUTH ONE TI* ALCOHOL SWABS Use as needed for adrenal cri* NORETHINDRINE-ETHINYL ESTRADI* Take 1 tablet by mouth once d* BUPROPION XL 300 MG 24 HR TAB Take 1 tablet by mouth once d* HYDROCORTISONE SODIUM SUCCINA* Inject 1 Vial intravenously a* Problem List As Of Date 12/11/2017 Noted Resolved Primary hypothyroidism [E03.9] INVALID FOR* More... Secondary adrenal insufficiency [E27.49] INVALID FOR* More... 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 History of pituitary tumor [Z87.898] INVALID FOR* More... 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 Disc: Duplicate Entry HYDROCORTISONE 5 MG TABLET 300 * 3 12/11/2017 Sig: TAKE 2 TABLETS BY MOUTH EVERY MORNING AND ONE-HALF (1/2) TABLET EVERY BEDTIME ( DOUBLE DOSE FOR STRESS, ILLNESS ) SYNTHROID 88 MCG TABLET 90 t* 3 12/11/2017 Route: ORAL Sig: Take 1 tablet by mouth once daily. SYRINGE WITH NEEDLE 1 ML 27 X 1/2 100 * 0 12/11/2017 Sig: For prn use to inject dexamethasone for emergency use. HYDROCORTISONE SODIUM SUCCINATE 100 * 1 Vi* 0 12/11/2017 Class: Print RX Route: INTRAVENOUS Sig: Inject 1 Vial intravenously as needed. Medications Discontinued During This Encounter Somatropin (HUMATROPE) 6 mg (18 unit* 3 Ea* 1 11/04/2017 12/11/2017 Class: Cigna/Argus Sig: Inject subcutaneous 0.6 mg once daily. Disc: Reason for discontinue is not on file. hydrocortisone (CORTEF) 5 mg tablet 300 * 0 11/11/2017 12/11/2017 Class: Cigna/Argus Sig: TAKE 2 TABLETS BY MOUTH EVERY MORNING AND ONE-HALF (1/2) TABLET EVERY BEDTIME ( DOUBLE DOSE FOR STRESS, ILLNESS ) Disc: Reason for discontinue is not on file. SYNTHROID 88 mcg tablet 90 t* 3 11/16/2016 12/11/2017 Route: ORAL Sig: Take 1 tablet by mouth once daily. Disc: Reason for discontinue is not on file. Syringe with Needle, Disp, (BD ECLIP* 100 * 0 03/29/2014 12/11/2017 Sig: For prn use to inject dexamethasone for emergency use. Disc: Reason for discontinue is not on file. Disposition: Return in about 1 year (around 12/11/2018). Follow-up and Disposition History Recorded Encounter Status:Closed by CHRISTOPHER DESAI MD on 01/10/18 CNCO Observed: 11/07/2017 Status: COMPLETED Source: LAURA 2:16 PM [facility] REPOSITORY HNO ID: [id number] Author: Mammography Coordinator Service: (none) Author Type: Physician Type: Letter Filed: 11/10/2017 11:34 PM Note Text: November 07, 2017 PID: [id number] Sherry Reynoso [address] [place] [address] Dear Sebas Abrams, We are pleased to inform you that the results of your recent breast imaging exam on 11/07/2017 are normal. Early detection of cancer is very important. We also understand recommendations regarding breast cancer screening are controversial. Please discuss with your primary care provider which strategy is best for you and whether a mammogram is right for you. Your imaging studies and report will be kept on file at [facility] as part of your permanent medical record and are available for your continuing care. Thank you for allowing us to help in meeting your health care needs. Sincerely, Dr. Tierney Interpreting Radiologist [facility] (Normal over 40) [facility] SCREENING Observed: 11/07/2017 Status: F Source: LAURA 1:25 PM [facility] REPOSITORY * * *Final Report* * * DATE OF EXAM: Nov 07 2017 1:25PM [facility] 0581 - [facility] SCREENING / PROCEDURE REASON: screening * * * * Physician Interpretation * * * * RESULT: #[id number] - [facility] SCREENING BILATERAL DIGITAL SCREENING MAMMOGRAM WITH CAD: 11/07/2017 HISTORY: /Screening Mammogram - patient reports NO breast symptoms /Priors available for comparison. RESULT: TECHNIQUE: The study was acquired using full field digital technology and interpreted from soft copy. Current study was also evaluated with a Computer Aided Detection (CAD). Comparison is made to exams dated: 09/13/2016 mammogram and 05/20/2014 mammogram - [facility]. The tissue of both breasts is predominantly fatty. No significant masses, calcifications, or other findings are seen in either breast. There has been no significant interval change. IMPRESSION: NEGATIVE There is no mammographic evidence of malignancy.A 1 year screening mammogram is recommended. Tita Tierney M.D. pt/miya:11/07/2017 14:16:40 Utilization Engineer: Elizabeth COLON (R)), [facility] letter sent: Normal over 40 Mammogram BI-RADS: 1 Negative Bridge Crane Operator: Miya Transcribe Date/Time: Nov 07 2017 1:24P Dictated by: TITA TIERNEY MD This examination was interpreted and the report reviewed and electronically signed by: TITA TIERNEY MD on Nov 07 2017 2:16PM EST [id number] ALLERGIES ALLERGIES DATE TYPE / CODE NAME / CODE REACTION SEVERITY SOURCE 11/05/2016 Drug No Known Unknown Ngozi Allergy/416 Allergies/[id number] Community [id number]([facility] 88(RXNORM) Hospital ED CT) Repository 10/28/2001 Drug PENICILLINS RASH [facility] Class/495[address] Main [place] 1003(SNOMED Repository CT) ENCOUNTERS ENCOUNTERS ADMIT/DISCHARGE ACCOUNT ADMITTING ENCOUNTER LOCATION SOURCE NUMBER CLASS 09/18/2018 [id number] Ambulatory Building:[facility] [place] Practices Repository 09/11/2018 [id number] [facility] ing:MTRAD Repository 12/15/2017 [id number] [facility] ing:LABSPEC Repository 12/11/2017/12/13/19 [id number] Ambulatory [address] Repository 11/07/2017/11/08/19 [id number] Ambulatory [address] Repository FUNCTIONAL STATUS FUNCTIONAL STATUS No Functional Status Records FoundEQUIPMENT EQUIPMENT No Equipment Records FoundPAYERS PAYERS ENCOUNTER GUARANTOR PAYER SUBSCRIBER SOURCE 09/18/2018 SHERRY L Primary SHERRY L [place] Practices GWINNDOB: Insurance:CignaPolDifferential GWINNDOB: Repository [id number] Number: [id number] [place] [id number] 5 [facility] [id number]: Date:5959-53-47WrcqDavey [place] Name:FP. OSebas Gallardo [id number]: ([phone]) () [id number] [place] [phone] () [id number]: 09/18/2018 Secondary Domenico GwinnDOB: [place] Practices Insurance:Medical [id number] Repository [address] Number: JOAQUIN [place] [id number] [address]Poj: ([phone]) Date: () [id number] Name:[facility] [address] [id number]: 09/11/2018 DOMENICO Mcclure [id number] Primary SHERRY L Ngozi [place] [facility], Insurance:CIGNAPolicy GWINNDOB: [facility] [address]Itu: Number: [id number] Hospital [id number] Repository () Date:[id number] [address], [place] [address]GV: 09/11/2018 Secondary NOT GIVENUNK Charlo Insurance:SELF PAY [facility] Number: Effective Repository Date:2018-09-11 12/15/2017 Domenico Mcclure [id number] Primary SHERRY L Ngozi [place] [facility], Insurance:CIGNAPolicy GWINNDOB: [facility] [address]Xen: Number: [id number] Hospital [id number] Repository () Date:[id number] [address], [place] [address]W[place]: 12/15/2017 Secondary NOT GIVENUNK Charlo Insurance:SELF PAY [facility] Number: Effective Repository Date:2017-12-15 SOCIAL HISTORY SOCIAL HISTORY No Social History Records FoundFAMILY HISTORY FAMILY HISTORY No Family History Records FoundADVANCE DIRECTIVES ADVANCE DIRECTIVES No Advanced Directives Records FoundINFORMATION SOURCE INFORMATION SOURCE DATE CREATED AUTHOR AUTHOR'S ORGANIZATION 09/20/2018 [place]
== END ==
PROVIDERS: Family Provider Internal Medicine; PCP Internal Medicine; Referring Provider Internal Medicine; Visit Provider Internal Medicine
DX: R06.02 Shortness of breath (principal)
CPT/HCPCS: 71046

== ENCOUNTER 2018-12-26 03:16 | Observation (INO) | payer OTHER, SELFPAY ==
[2018-12-26] VITALS (14 sets, daily range): BP systolic 93–141; BP diastolic 60–85; PULSE 60–91; RESP 14–18; TEMP 36.4–37.2; O2SAT 96–100; BMI 23.6; BMI 22.8
--- NOTE | 2018-12-26 03:21 | EKG12_ITS ---
Test Reason : ABD PAIN Blood Pressure : / mmHG Vent. Rate : 072 BPM Atrial Rate : 072 BPM P-R Int : 130 ms QRS Dur : 078 ms QT Int : 394 ms P-R-T Axes : 074 078 065 degrees QTc Int : 431 ms Normal sinus rhythm with sinus arrhythmia Normal ECG Confirmed by MARICEL GARCIA, BOB ([id number]), research editor SAMMIE LAMB ([id number]) on 12/29/2018 1:22:46 PM Referred By: ZACH Confirmed By:BOB CONNELLY MD
--- NOTE | 2018-12-26 03:21 | RAD_ITS ---
HISTORY: ABDOMINAL PAIN EXAM:XR Chest 1 View portable COMPARISON: 09/11/2018 FINDINGS: EKG leads in place. No significant change. COPD with hyperinflation and hyperlucency of both lungs. No acute infiltrate. Normal heart size. No vascular congestion or pleural effusion. No pneumothorax. The bony thorax appears intact. RAD/Chest 1 View (Portable) IMPRESSION: 1. No acute disease or significant change. 2. COPD. at 0350 Reported and signed by: Santos Quiroz MD Electronically Signed: Santos Quiroz, at 3:49 EDT Tel , Service support ,
[2018-12-26 03:33] LABS: Absolute Lymphocyte Count 3.27 X10^3/ul (0.83-4.51); Absolute Neutrophil Count 6.1 X10^3/uL (2.0-7.7); Basophil# 0.03 X10^3/uL; Basophil% 0.3 % (0-1); Eosinophil# 0.18 X10^3/uL; Eosinophils% 1.7 % (0-5); Hematocrit 40.2 % (37-47); Hemoglobin 13.7 g/dl (12.0-15.0); Lymphocyte # 3.27 X10^3/ul (4.0); Lymphocyte % 30.5 % (19-41); Mean Corp Hgb Conc 34.1 g/gl (32-36); Mean Corpuscular Hgb 30.6 pg (27.0-32.0); Mean Corpuscular Volume 89.7 fL (81-99); Monocyte# 1.09 X10^3/uL; Monocyte% 10.2 % (0-10); Neutrophil # 6.12 X10^3/uL (2.7-7.7); Neutrophil % 57.1 % (47-70); Platelet Count 351 K/mm3 (150-450); RBC Distribution Width CV 13.2 % (11.6-14.6); RBC Distribution Width SD 43.2 fl (35.1-43.9); Red Blood Count 4.48 M/mm3 (4.2-5.4); White Blood Count 10.7 K/mm3 (4.4-11.0)
[2018-12-26] MEDS: Ondansetron 4 MG/2 ML Vial IV ×2 (03:33→12:53)
[2018-12-26 03:34] LABS: POSITIVE COUNT NO; POSITIVE DIFFERENTIAL NO; POSITIVE MORPHOLOGY NO
[2018-12-26] MEDS: Mag Hydrox/Al Hydrox/Simeth 30 ML UDC PO (03:37)
[2018-12-26] MEDS: Aspirin 81 MG TAB.CHEW 324 MG PO (03:39)
--- NOTE | 2018-12-26 03:42 | ED.DCSUM_ITS ---
- ER Visit Summary Date of Service: 12/26/18 Chief Complaint: Epigastric pain History of Present Illness: The patient is a 48 F presenting with epigastric pain. She states this started 1.5 hours ago. Pain is in the epigastric region radiates to the substernal area. She has had nausea and vomiting. This started after drinking a coffee with Baileys in it. She took 1 baby aspirin at home. She does not use ibuprofen or Motrin frequently. She has a history of adrenal insufficiency and hypothyroidism. She was brought in by her primary care physician Dr. Gurrola. Physical Examination: Vitals are stable. Patient is afebrile. Alert no acute distress. HEENT exam is unremarkable. Neck is supple. Lungs are clear and equal bilaterally. Heart is regular rate and rhythm. Abdomen is soft epigastric tenderness with no rebound or guarding Extremities are unremarkable. Skin is warm and dry. No focal neurologic deficit. Remainder of exam is unremarkable. Emergency Department Course and Treatment: Patient given aspirin, morphine, Zofran, GI cocktail. Chest x-ray shows no acute process. EKG is sinus with no acute ischemic changes. CBC unremarkable. Chemistries show potassium 2.6, BUN 19, creatinine 1.33. Liver lipase are normal. Troponin is negative. Patient continues to have severe pain and was given Dilaudid IV as well as Ativan. She was given potassium replacement. CT abdomen pelvis shows cholelithiasis. No biliary dilatation, free fluid, or acute disease identified. Prominent periuterine vascular structures and ovarian vein on the left and this may be seen with chronic pelvic congestion. On repeat exam patient continues to have vomiting and epigastric pain. With her history of adrenal insufficiency she is steroid dependent. Will discuss with the hospitalist for admission for intractable pain and vomiting. Disposition: Observation Impression: Abdominal pain, cholelithiasis, hypokalemia, nausea and vomiting This note was generated with [facility] dictation software. It may contain incorrect words, spelling, and punctuation that were not noted in review of the chart prior to signing ED Disposition - Plan for ED Patient: Referrals: Shanika Gurrola MD [Primary Care Provider] -
[2018-12-26 04:01] LABS: AST(SGOT) 20 U/L (15-37); Alanine Aminotransfer ALT/SGPT 19 U/L (13-56); Albumin, Serum 3.4 g/dL (3.2-5.0); Alkaline Phosphatase 97 U/L (45-117); Anion Gap 8 (5-15); BUN 19 mg/dL (7-18); BUN/Creat Ratio 14.3 RATIO (10-20); Bilirubin, Direct 0.12 mg/dL (0.00-0.30); Calcium,Total 9.2 mg/dL (8.5-10.1); Chloride 99 mmol/L (98-107); Creatinine, Serum 1.33 mg/dL (0.55-1.02); EST Glomerular Filtration Rate 45 mL/min (>60); Est Glom Filt Rate - Afr Amer 54 mL/min (>60); Estimated Creatinine Clearance 36.35 ml/min; Globulin 3.9 g/dL (2.2-4.2); Glucose 95 mg/dL (74-106); Lipase 182 U/L (73-393); Potassium 2.6 mmol/L (3.5-5.1); Protein, Total 7.3 g/dL (6.4-8.2); Sodium Level 140 mmol/L (136-145)
[2018-12-26] MEDS: Morphine 4 MG/ML Syringe IV (04:03)
--- NOTE | 2018-12-26 04:11 | CT_ITS ---
HISTORY: PT STATED RUQ PAIN EXAMINATION: CT Abdomen And Pelvis W/ Contrast TECHNIQUE: Helically acquired images were obtained of the abdomen and pelvis following IV contrast. A radiation dose optimization technique was used for this scan. IV Contrast dosage and agent: 100 Isovue 300 Oral contrast: None. COMPARISON: None FINDINGS: Lower thorax: Clear. No pleural effusion or pericardial effusion. The gallbladder shows borderline overdistention measuring 4 cm in diameter and shows a 1.6 cm dependent gallstone. No gallbladder wall thickening or pericholecystic inflammatory changes and no biliary dilatation seen. Normal liver, spleen, and pancreas. The pancreatic duct dilatation. Both kidneys are normal in position. Bilateral renal opacification without evidence of hydronephrosis, pyelonephritis, or suspicious renal lesion. Adrenal glands are not enlarged. Normal abdominal aorta and IVC. No ascites or retroperitoneal lymph enlargement. GI tract: No obstruction. Normal appendix. Pelvis: Anteverted uterus which is normal in size. Prominent enhancement of the subserosal uterine arcuate arteries. Prominent periuterine vascular structures and ovarian vein distention on the left and this may be seen with chronic pelvic congestion. No free fluid or lymph node enlargement. Bones: No acute osseous abnormality. CT/Abdomen/Pelvis W IV Cont ONLY IMPRESSION: 1. Cholelithiasis. No biliary dilatation, free fluid, or acute disease identified. 2. Prominent periuterine vascular structures and ovarian vein on the left and this may be seen with chronic pelvic congestion. Individualized dose optimization techniques were used for this CT. at 0530 Reported and signed by: Santos Quiroz MD Electronically Signed: Santos Quiroz, at 5:29 EDT Tel , Service support ,
[2018-12-26] MEDS: HYDROmorphone 0.5 MG/0.5 ML SYRINGE IV ×2 (04:25→06:11)
[2018-12-26] MEDS: LORazepam 2 MG/ML Syringe 0.5 MG IV (04:25)
[2018-12-26] MEDS: proMETHazine 25 MG/ML Syringe 6.25 MG IV (06:11)
--- NOTE | 2018-12-26 07:10 | HP.PCM_ITS ---
History of Present Illness Date of Admission: 12/26/18 Chief Complaint: abdominal pain The patient is a 48 year old F with a past medical history of pituitary tumor status post resection with resultant adrenal insufficiency, hypothyroidism as well as depression. She was admitted through the ED on 12/26/2018 with a complaint of abdominal pain of one day duration. Abdominal pain started in the early hours of this morning and was mainly in the right upper quadrant and epigastric area. She described the pain as cramping and had associated nausea and vomiting. She vomited about 6 times prior to admission. She denied any fever chills, palpitations or dizziness or chest pain or diarrhea. She has not had such abdominal pain in the past and denies any history of peptic ulcer disease or liver disease. Vitals in the ED was stable and chemistries were significant for potassium of 2.6 as well as creatinine of 1.3 which is around her baseline. CBC was within normal limits. Chest x-ray showed evidence of COPD with hyperinflation but no acute cardiopulmonary process. Abdominal CT showed cholelithiasis with borderline over distention of gallbladder measuring about 4 cm in diameter and 1.6 cm dependent gallstones with no gallbladder wall thickening or pericholecystic inflammatory changes and no biliary dilatation seen. She has been admitted to be managed for acute abdominal pain due to probable acute cholelithiasis. 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 Denies: Anorexia, Chills, Fever Eyes: Denies: Blurred vision HEENT: Denies: Head Aches, Sinus Congestion, Sinus Drainage Cardiovascular: Denies: Chest Pain, Palpitations Respiratory: Denies: Cough, Shortness of breath at rest, Sputum production Gastrointestinal: Reports: Abdominal Pain, Nausea, Vomiting. Denies: Diarrhea, Dyspepsia Genitourinary: Denies: Dysuria Musculoskeletal: Denies: Joint Pain, Joint Tenderness Skin: Denies: Rash, Wounds Neurological: Denies: Numbness, Tingling, Focal weakness Psychiatric: Denies: Anxiety, Depression, Homicidal Ideations, Suicidal Ideations Hematologic/ Lymphatic: Denies: Easy Bruising, Easy Bleeding VTE Information - Inpt Only VTE Present on Admission: No VTE Pharm Prophylaxis ordered?: Yes Patient Problems: Active and Suspected Problems Cholelithiasis (Acute) - Physical Exam General: Alert, Cooperative, Confused HEENT: Atraumatic, PERRLA, EOMI, Normocephalic Oral: Dry Mucosa Neck: Supple, No JVD, Negative Carotid Bruits Lungs: Clear to auscultation, Normal air movement Cardiovascular: Regular rate, Regular Rhythm, Normal S1, Normal S2, No murmurs Abdomen: Bowel Sounds Present, Non-Distended, No Hepato-splenomegaly, - - mild epigastric and RUQ tenderness, no guarding or rebound tenderness Extremities: No cyanosis, No edema, Capillary Refill Less than 3 Seconds Skin: No rashes, No breakdown Musculoskeletal: No Tenderness to Palpation of Joints or Extremities Lymphatic: No Cervical, Supraclavicular, or Inguinal Adenopathy Neurological: Cranial nerves II-XII grossly intact, Neuro grossly intact, Motor Exam 5/5 strength throughout Psych/Mental Status: Normal Affect, Appropriate, Alert and oriented to time, place, person, mood and affect Vital Signs Temp Pulse Resp BP Pulse Ox 98.1 F 76 16 116/79 96 12/26/18 03:17 12/26/18 06:19 12/26/18 06:19 12/26/18 06:19 12/26/18 06:19 Oxygen Delivery Method Room Air Weight: 121 lb 4.068 oz Body Mass Index (BMI) 23.6 Finger Stick Blood Glucose 99 Laboratory Tests Past 24 Hrs 12/26/18 12/26/18 03:25 03:25 WBC 10.7 RBC 4.48 Hgb 13.7 Hct 40.2 MCV 89.7 MCH 30.6 MCHC 34.1 RDW 13.2 RDW Differential 43.2 Plt Count 351 MPV 9.0 Immature Gran % (Auto) 0.200 Neut % (Auto) 57.1 Lymph % (Auto) 30.5 Crenshaw % (Auto) 10.2 H Eos % (Auto) 1.7 Baso % (Auto) 0.3 Absolute Neuts (auto) 6.1 Absolute Lymphs (auto) 3.27 Total Counted Not Reportable Sodium 140 Potassium 2.6 L* Chloride 99 Carbon Dioxide 33.0 H Anion Gap 8 BUN 19 H Creatinine 1.33 H Estim Creat Clear Calc 36.35 Est GFR (MDRD) Af Amer 54 L Est GFR (MDRD) Non-Af 45 L BUN/Creatinine Ratio 14.3 Glucose 95 Calcium 9.2 Total Bilirubin 0.30 Direct Bilirubin 0.12 AST 20 ALT 19 Alkaline Phosphatase 97 Troponin I < 0.015 Total Protein 7.3 Albumin 3.4 Globulin 3.9 Lipase 182 Diagnostic Data Chest X-Ray 12/26/18 03:21 IMPRESSION: 1. No acute disease or significant change. 2. COPD. at 0350 Reported and signed by: Santos Quiroz MD Electronically Signed: Santos Quiroz, at 3:49 EDT Tel , Service support , Abdomen/Pelvis CT 12/26/18 04:11 IMPRESSION: 1. Cholelithiasis. No biliary dilatation, free fluid, or acute disease identified. 2. Prominent periuterine vascular structures and ovarian vein on the left and this may be seen with chronic pelvic congestion. Individualized dose optimization techniques were used for this CT. at 0530 Reported and signed by: Santos Quiroz MD Electronically Signed: Santos Quiroz, at 5:29 EDT Tel , Service support , Assessment/Plan All Active Problems Cholelithiasis (Acute) 48-year-old female admitted with a complaint of abdominal pain. 1. Abdominal pain due to possible symptomatic cholelithiiasis * abdominopelvic CT showed cholelithiasis and prominent periuterine vascular structures and ovarian vein on the left which may be seen with chronic pelvic congestion. * Admit to PCU with telemetry * IV morphine as needed for pain * Keep NPO. Hydrated with IV fluid normal saline * IV zofran for nausea and vomiting * initial troponin was also negative, will cycle. * gallbladder USG showed cholelithiasis and multiple gallbladder polyps: general surgery consulted. For possible laparoscopy tomorrow * started on IV antibiotics per gen surgery as patient may now be developing cholecystitis- started on IV clindamycin, due to penicillin allergies * 2. HYpokalemia * K is 2.6, likely due to incessant vomiting * Mg is 2.0 * will replace potassium and monitor * 3. CKD 3 * Cr is 1.33, which is around her baseline. WIll monitor * 4. Metabolic alkalosis: * Bicarb is 33, likely a contraction alkalosis from the incessant vomiting as well as hypokalemia. * WIll monitor, should resolve with hydration * 5. Adrenal insufficiency due to pituitary tumor resection * usually on oral hydrocortisone replacement; in light of NPO state, will start IV hydrocortisone stress dose * 6. Hypothyroidism: on synthroid 7. Depression: on Bupropion DVT prophylaxis: lovenox Code Visit Inpatient E&M: [id number] Init Hosp L3
--- NOTE | 2018-12-26 08:25 | US_ITS ---
STUDY: ABDOMINAL ULTRASOUND - RIGHT UPPER QUADRANT REASON FOR VISIT: Female, 48 years old. Right upper quadrant pain. TECHNIQUE: Multiple ultrasound images are obtained of the right upper quadrant. TECHNICAL QUALITY: Adequate. COMPARISON: None. FINDINGS: Liver: The liver measures 15.1 cm. There is normal echogenicity of the liver. The bile ducts are within normal limits. There is hepatic color flow. The direction of portal flow is hepatopetal. There is no demonstrated mass lesion. Gallbladder: Normal distended gallbladder. The gallbladder wall measures 2 mm. There is a negative sonographic Herrera's sign. There is no pericholecystic fluid. Multiple gallstones are identified. Multiple polyps are noted in the gallbladder wall measuring 3 to 5 mm. Common Bile Duct (C.B.D.): The common bile duct measures 6 mm. Pancreas: Normal size of the head, body and tail of the pancreas. There is normal echogenicity of the pancreas. There is no demonstrated pancreatic mass or cyst. Right Kidney: Normal size of the right kidney. The right kidney measures 10 x 4.2 x 3.4 cm. Normal renal cortex. The right cortex measures 0.9 cm. There is no demonstrated renal mass or cyst. There is no right hydronephrosis. US/Gallbladder IMPRESSION: Multiple gallstones. Multiple small gallbladder wall polyps. Electronically Signed: Nestor Ortiz, at 11:33 EDT Tel , Service support ,
[2018-12-26] MEDS: 0.9% NaCl Peripheral Flush Adult/Peds IV ×3 (09:30→22:29)
[2018-12-26] MEDS: Potassium Chloride 10mEq/100mL 10 MEQ/100 ML IV.SOLN. 100 MEQ IV BOLUS ×4 (11:05→14:06)
[2018-12-26] MEDS: Morphine 2 MG/ML Syringe IV (12:53)
--- NOTE | 2018-12-26 13:12 | PCM.CONS.GEN ---
Problem List (1) Cholelithiasis Status: Acute Qualifiers: Cholelithiasis location: gallbladder Cholecystitis presence: with cholecystitis Cholecystitis acuity: acute Biliary obstruction: without biliary obstruction Qualified Code(s): K80.00 - Calculus of gallbladder with acute cholecystitis without obstruction Reason for Consult Date of Consultation: 12/26/18 Reason for Consultation: Cholelithiasis History of Present Illness: The patient is a 48 year old F who says she started having epigastric pain last night at 1130. The pain continued this morning. She describes the pain in the epigastric and right upper quadrant region. She has had several episodes of emesis and nausea. She is still in severe pain. 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 Denies: Fever HEENT: Denies: Difficulty Swallowing Cardiovascular: Denies: Chest Pain Respiratory: Denies: Cough Gastrointestinal: Reports: Abdominal Pain, Nausea, Vomiting. Denies: Hematemesis, Hematochezia Genitourinary: Denies: Dysuria Musculoskeletal: Denies: Leg Pain Skin: Denies: Dryness, Jaundice Psychiatric: Denies: Anxiety, Depression Hematologic/ Lymphatic: Denies: Anemia Patient Problems: Active and Suspected Problems Cholelithiasis (Acute) - Physical Exam General: Alert, Oriented x3, Cooperative Oral: Dry Mucosa Neck: No JVD Lungs: Normal air movement Cardiovascular: Regular rate, Regular Rhythm Abdomen: Soft, Non-Distended, Tender - Tender in the right upper quadrant and epigastric regions Psych/Mental Status: Normal Affect Vital Signs Temp Pulse Resp BP Pulse Ox 97.5 F L 67 16 115/70 100 12/26/18 07:41 12/26/18 11:36 12/26/18 07:41 12/26/18 07:41 12/26/18 07:41 Oxygen Delivery Method Room Air Weight: 116 lb 13.52 oz Body Mass Index (BMI) 22.8 Finger Stick Blood Glucose 99 Intake and Output for Last 24 Hours 12/24/18 12/25/18 12/26/18 23:59 23:59 23:59 Intake Total 408 / 408 Balance 408 / 408 Laboratory Tests Past 24 Hrs 12/26/18 12/26/18 12/26/18 03:25 03:25 03:25 WBC 10.7 RBC 4.48 Hgb 13.7 Hct 40.2 MCV 89.7 MCH 30.6 MCHC 34.1 RDW 13.2 RDW Differential 43.2 Plt Count 351 MPV 9.0 Immature Gran % (Auto) 0.200 Neut % (Auto) 57.1 Lymph % (Auto) 30.5 [place] % (Auto) 10.2 H Eos % (Auto) 1.7 Baso % (Auto) 0.3 Absolute Neuts (auto) 6.1 Absolute Lymphs (auto) 3.27 Total Counted Not Reportable Sodium 140 Potassium 2.6 L* Chloride 99 Carbon Dioxide 33.0 H Anion Gap 8 BUN 19 H Creatinine 1.33 H Estim Creat Clear Calc 36.35 Est GFR (MDRD) Af Amer 54 L Est GFR (MDRD) Non-Af 45 L BUN/Creatinine Ratio 14.3 Glucose 95 Calcium 9.2 Magnesium 2.0 Total Bilirubin 0.30 Direct Bilirubin 0.12 AST 20 ALT 19 Alkaline Phosphatase 97 Troponin I < 0.015 Total Protein 7.3 Albumin 3.4 Globulin 3.9 Lipase 182 12/26/18 10:25 WBC RBC Hgb Hct MCV MCH MCHC RDW RDW Differential Plt Count MPV Immature Gran % (Auto) Neut % (Auto) Lymph % (Auto) [place] % (Auto) Eos % (Auto) Baso % (Auto) Absolute Neuts (auto) Absolute Lymphs (auto) Total Counted Sodium Potassium Chloride Carbon Dioxide Anion Gap BUN Creatinine Estim Creat Clear Calc Est GFR (MDRD) Af Amer Est GFR (MDRD) Non-Af BUN/Creatinine Ratio Glucose Calcium Magnesium Total Bilirubin Direct Bilirubin AST ALT Alkaline Phosphatase Troponin I < 0.015 Total Protein Albumin Globulin Lipase Clinical Impression(s) from Imaging Studies Chest X-Ray 12/26/18 03:21 IMPRESSION: 1. No acute disease or significant change. 2. COPD. at 0350 Reported and signed by: Santos Quiroz MD Electronically Signed: Santos Quiroz, at 3:49 EDT Tel , Service support , Abdomen/Pelvis CT 12/26/18 04:11 IMPRESSION: 1. Cholelithiasis. No biliary dilatation, free fluid, or acute disease identified. 2. Prominent periuterine vascular structures and ovarian vein on the left and this may be seen with chronic pelvic congestion. Individualized dose optimization techniques were used for this CT. at 0530 Reported and signed by: Santos Quiroz MD Electronically Signed: Santos Quiroz, at 5:29 EDT Tel , Service support , Gallbladder Ultrasound 12/26/18 08:25 IMPRESSION: Multiple gallstones. Multiple small gallbladder wall polyps. Electronically Signed: Nestor Ortiz, at 11:33 EDT Tel , Service support , Assessment/Plan All Active Problems Cholelithiasis (Acute) 48-year-old female with cholelithiasis and likely early acute cholecystitis 1. Patient had CT scan which showed 2 large gallstones. She had ultrasound which also showed gallstones and a large gallstone appears to be lodged in the neck of the gallbladder. I believe she is starting to develop symptoms of acute cholecystitis. I will start her on antibiotics. 2. I described laparoscopic cholecystectomy to the patient in detail. I explained the risks including but not limited to bleeding, infection, injury to surrounding organs such as the liver, bile duct, bowels. I also described risk of biliary leak and heart attack and stroke from anesthesia. Patient consents to proceed and I will plan on performing laparoscopic cholecystectomy tomorrow morning at 8 AM. 3. Patient is dehydrated and receiving IV fluids. She is also hypokalemic and this is being corrected by the primary team. 4. Pain control, SCDs, hold Lovenox in a.m., n.p.o. and IV fluids. 5. Patient has chronic adrenal insufficiency and is on steroids every 8 hours. Guilherme Oliveira MD Pager: [facility] [address] [place] [address] [address] [place] [address] Office:
--- NOTE | 2018-12-26 13:16 | CON.PCM_ITS ---
Problem List (1) Cholelithiasis Status: Acute Qualifiers: Cholelithiasis location: gallbladder Cholecystitis presence: with cholecystitis Cholecystitis acuity: acute Biliary obstruction: without biliary obstruction Qualified Code(s): K80.00 - Calculus of gallbladder with acute cholecystitis without obstruction Reason for Consult Date of Consultation: 12/26/18 Reason for Consultation: Cholelithiasis History of Present Illness: The patient is a 48 year old F who says she started having epigastric pain last night at 1130. The pain continued this morning. She describes the pain in the epigastric and right upper quadrant region. She has had several episodes of emesis and nausea. She is still in severe pain. 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 Denies: Fever HEENT: Denies: Difficulty Swallowing Cardiovascular: Denies: Chest Pain Respiratory: Denies: Cough Gastrointestinal: Reports: Abdominal Pain, Nausea, Vomiting. Denies: Hematemesis, Hematochezia Genitourinary: Denies: Dysuria Musculoskeletal: Denies: Leg Pain Skin: Denies: Dryness, Jaundice Psychiatric: Denies: Anxiety, Depression Hematologic/ Lymphatic: Denies: Anemia Patient Problems: Active and Suspected Problems Cholelithiasis (Acute) - Physical Exam General: Alert, Oriented x3, Cooperative Oral: Dry Mucosa Neck: No JVD Lungs: Normal air movement Cardiovascular: Regular rate, Regular Rhythm Abdomen: Soft, Non-Distended, Tender - Tender in the right upper quadrant and epigastric regions Psych/Mental Status: Normal Affect Vital Signs Temp Pulse Resp BP Pulse Ox 97.5 F L 67 16 115/70 100 12/26/18 07:41 12/26/18 11:36 12/26/18 07:41 12/26/18 07:41 12/26/18 07:41 Oxygen Delivery Method Room Air Weight: 116 lb 13.52 oz Body Mass Index (BMI) 22.8 Finger Stick Blood Glucose 99 Intake and Output for Last 24 Hours 12/24/18 12/25/18 12/26/18 23:59 23:59 23:59 Intake Total 408 / 408 Balance 408 / 408 Laboratory Tests Past 24 Hrs 12/26/18 12/26/18 12/26/18 03:25 03:25 03:25 WBC 10.7 RBC 4.48 Hgb 13.7 Hct 40.2 MCV 89.7 MCH 30.6 MCHC 34.1 RDW 13.2 RDW Differential 43.2 Plt Count 351 MPV 9.0 Immature Gran % (Auto) 0.200 Neut % (Auto) 57.1 Lymph % (Auto) 30.5 [place] % (Auto) 10.2 H Eos % (Auto) 1.7 Baso % (Auto) 0.3 Absolute Neuts (auto) 6.1 Absolute Lymphs (auto) 3.27 Total Counted Not Reportable Sodium 140 Potassium 2.6 L* Chloride 99 Carbon Dioxide 33.0 H Anion Gap 8 BUN 19 H Creatinine 1.33 H Estim Creat Clear Calc 36.35 Est GFR (MDRD) Af Amer 54 L Est GFR (MDRD) Non-Af 45 L BUN/Creatinine Ratio 14.3 Glucose 95 Calcium 9.2 Magnesium 2.0 Total Bilirubin 0.30 Direct Bilirubin 0.12 AST 20 ALT 19 Alkaline Phosphatase 97 Troponin I < 0.015 Total Protein 7.3 Albumin 3.4 Globulin 3.9 Lipase 182 12/26/18 10:25 WBC RBC Hgb Hct MCV MCH MCHC RDW RDW Differential Plt Count MPV Immature Gran % (Auto) Neut % (Auto) Lymph % (Auto) [place] % (Auto) Eos % (Auto) Baso % (Auto) Absolute Neuts (auto) Absolute Lymphs (auto) Total Counted Sodium Potassium Chloride Carbon Dioxide Anion Gap BUN Creatinine Estim Creat Clear Calc Est GFR (MDRD) Af Amer Est GFR (MDRD) Non-Af BUN/Creatinine Ratio Glucose Calcium Magnesium Total Bilirubin Direct Bilirubin AST ALT Alkaline Phosphatase Troponin I < 0.015 Total Protein Albumin Globulin Lipase Clinical Impression(s) from Imaging Studies Chest X-Ray 12/26/18 03:21 IMPRESSION: 1. No acute disease or significant change. 2. COPD. at 0350 Reported and signed by: Santos Quiroz MD Electronically Signed: Santos Quiroz, at 3:49 EDT Tel , Service support , Abdomen/Pelvis CT 12/26/18 04:11 IMPRESSION: 1. Cholelithiasis. No biliary dilatation, free fluid, or acute disease identified. 2. Prominent periuterine vascular structures and ovarian vein on the left and this may be seen with chronic pelvic congestion. Individualized dose optimization techniques were used for this CT. at 0530 Reported and signed by: Santos Quiroz MD Electronically Signed: Santos Quiroz, at 5:29 EDT Tel , Service support , Gallbladder Ultrasound 12/26/18 08:25 IMPRESSION: Multiple gallstones. Multiple small gallbladder wall polyps. Electronically Signed: Nestor Ortiz, at 11:33 EDT Tel , Service support , Assessment/Plan All Active Problems Cholelithiasis (Acute) 48-year-old female with cholelithiasis and likely early acute cholecystitis 1. Patient had CT scan which showed 2 large gallstones. She had ultrasound which also showed gallstones and a large gallstone appears to be lodged in the neck of the gallbladder. I believe she is starting to develop symptoms of acute cholecystitis. I will start her on antibiotics. 2. I described laparoscopic cholecystectomy to the patient in detail. I explained the risks including but not limited to bleeding, infection, injury to surrounding organs such as the liver, bile duct, bowels. I also described risk of biliary leak and heart attack and stroke from anesthesia. Patient consents to proceed and I will plan on performing laparoscopic cholecystectomy tomorrow morning at 8 AM. 3. Patient is dehydrated and receiving IV fluids. She is also hypokalemic and this is being corrected by the primary team. 4. Pain control, SCDs, hold Lovenox in a.m., n.p.o. and IV fluids. 5. Patient has chronic adrenal insufficiency and is on steroids every 8 hours. Guilherme Oliveira MD Pager: [facility] [address] [place] [address] [address] [place] [address] Office:
[2018-12-26] MEDS: CLARIFY ORDER NOTE (13:50)
[2018-12-26] MEDS: Hydrocortisone Sod Succinate 100 MG/2 ML Vial 50 MG IV ×2 (14:08→22:05)
[2018-12-26] MEDS: Enoxaparin 40 MG/0.4 ML Syringe SC (16:27)
[2018-12-26] MEDS: HYDROmorphone 1 MG/ML Syringe IV ×4 (16:36→23:35)
[2018-12-27] VITALS (16 sets, daily range): BP systolic 88–125; BP diastolic 46–78; PULSE 63–98; RESP 16–18; TEMP 36.6–37.3; O2SAT 93–99; BMI 22.8
[2018-12-27] MEDS: 0.9% NaCl Peripheral Flush Adult/Peds IV (04:17)
[2018-12-27] MEDS: HYDROmorphone 1 MG/ML Syringe IV ×2 (04:17→20:16)
[2018-12-27 05:14] LABS: Internal QC Validated? YES +Cl - CLEAR BKGD; Pregnancy, Urine Negative Negative
[2018-12-27] MEDS: Hydrocortisone Sod Succinate 100 MG/2 ML Vial 50 MG IV ×4 (05:52→23:42)
[2018-12-27 05:56] LABS: Bedside Glucose 139 mg/dL (70-110)
[2018-12-27 06:16] LABS: ALB/GLOB Ratio 0.8 RATIO (0.9-2.4); AST(SGOT) 19 U/L (15-37); Alanine Aminotransfer ALT/SGPT 16 U/L (13-56); Albumin, Serum 2.7 g/dL (3.2-5.0); Alkaline Phosphatase 86 U/L (45-117); Anion Gap 7 (5-15); BUN 14 mg/dL (7-18); BUN/Creat Ratio 13.1 RATIO (10-20); Calcium,Total 7.7 mg/dL (8.5-10.1); Chloride 105 mmol/L (98-107); Creatinine, Serum 1.07 mg/dL (0.55-1.02); EST Glomerular Filtration Rate 58 mL/min (>60); Est Glom Filt Rate - Afr Amer 70 mL/min (>60); Estimated Creatinine Clearance 45.18 ml/min; Globulin 3.3 g/dL (2.2-4.2); Glucose 128 mg/dL (74-106); Potassium 4.4 mmol/L (3.5-5.1); Sodium Level 138 mmol/L (136-145)
[2018-12-27 06:22] LABS: Absolute Lymphocyte Count 0.51 X10^3/ul (0.83-4.51); Absolute Neutrophil Count 9.5 X10^3/uL (2.0-7.7); Hematocrit 36.1 % (37-47); Hemoglobin 11.9 g/dl (12.0-15.0); Lymphocyte # 0.51 X10^3/ul (4.0); Mean Corpuscular Hgb 29.8 pg (27.0-32.0); Mean Corpuscular Volume 90.5 fL (81-99); Mean Platelet Vol. 9.5 fl (6.2-12.0); Monocyte# 0.21 X10^3/uL; Monocyte% 2.1 % (0-10); Neutrophil # 9.45 X10^3/uL (2.7-7.7); Neutrophil % 92.7 % (47-70); Platelet Count 292 K/mm3 (150-450); RBC Distribution Width CV 12.9 % (11.6-14.6); RBC Distribution Width SD 42.5 fl (35.1-43.9); Red Blood Count 3.99 M/mm3 (4.2-5.4); White Blood Count 10.2 K/mm3 (4.4-11.0)
[2018-12-27 06:23] LABS: Differential Indicated SCAN CRITERIA MET; POSITIVE COUNT NO; POSITIVE DIFFERENTIAL YES; POSITIVE MORPHOLOGY NO
--- NOTE | 2018-12-27 07:50 | NURSING ---
PT TO OR VIA BED.
--- NOTE | 2018-12-27 08:00 | RAD_ITS ---
CLINICAL HISTORY: Female, 48 years old. Laparoscopic cholecystectomy. PROCEDURE: CHOLANGIOGRAM: Fluoroscopy services provided for clinical procedure. Please refer to operating physician's procedure note for additional detail. FLUOROSCOPY TIME (if supplied): (0:10) minutes/seconds Placement of the catheter and the procedure were performed by: Matt Knight TECHNIQUE: 56, intraprocedural, spot images of the right upper quadrant are submitted. Opacified intrahepatic and extrahepatic bile ducts demonstrate no evidence of filling defect to suggest sludge/debris or calculi. There is approximately 1 cm in length, mild irregular narrowing of the distal common bile duct potentially representing stenosis. Unopacified regions of the duodenal C-sweep appear normal. There is no extrabiliary or extraenteric contrast. There is no significant incidental finding. RAD/Cholangiogram/ O R,Initial IMPRESSION: No filling defect to suggest calculi or sludge/debris. Potential stenosis involving distal common bile duct. No extrabiliary or extraenteric contrast. No significant incidental finding. Comment: Fluoroscopy services provided for clinical procedure. Please refer to Dr. Oliveira's procedure note for additional detail. Electronically Signed: Raheem Villegas MD at 9:37 EDT , Service support ,
--- NOTE | 2018-12-27 08:00 | GALL_PTH ---
PATIENT: MELANIE ABRAMS LOC: PCU U#:[id number] AGE/SX: 48/F ROOM: [facility] RE12/26/[address]: Dr. Vy Oliveira MD : 1970 BED: 1 DIS: 12/28/2018 SPEC #: [id number] RECD: 12/28/18 06:53 STATUS: SHIRA REVikas #: [id number] THOR: 12/27/18 08:[address]: Guilherme Oliveira DEPT: SURGICAL PATHOLOGY RECD BY: Bud Cifuentes ENTERED: 12/28/18 08:41 SP TYPE: LONNIEBLAMEYA IBRAHIM DR: MD Dr. Vy Ding MD Tissues: Gallbladder, NOS Procedures: Surgery Specimen Level III HEADER OPERATION: Laparoscopic cholecystectomy with IOC PRE-OP DIAGNOSIS: Calculus of gallbladder with acute cholecystitis without obstruction TISSUE SUBMITTED: Gallbladder MICROSCOPIC DIAGNOSIS Gallbladder, cholecystectomy: Acute and chronic, hemorrhagic and ulcerated cholecystitis and cholelithiasis. SJ:dariana 12/29/18 MICROSCOPIC DESCRIPTION Slides are reviewed. GROSS DESCRIPTION Received is one container labeled with the patient's name and designated gallbladder. The specimen consists of a gallbladder measuring 8.2 x 4.2 x 3 cm. The serosal surface is bess-pink and smooth. A roughened brown area is present, grossly compatible with the hepatic reflection. The gallbladder is opened to reveal brown gall fluid with mucid material and two mixed pigmented calculi ranging in diameter from 1 to 1.5 cm. The mucosal surface of the gallbladder is irregular, brown and granular. Some areas of possible ulceration are noted. No distinctive lesion is found. Sections through the cystic duct demonstrate a complete lumen. No additional calculi are found within the cystic duct. The gallbladder wall is slightly thickened but uniform (0.3 cm). Emulsion Coater sections of the gallbladder and the cystic duct are submitted in one cassette. / CE:dariana 12/28/18 TC:2 CPT: 18552
[2018-12-27] MEDS: Bupiv/Epi 0.25% 30 ML Vial (09:00)
--- NOTE | 2018-12-27 09:04 | OP.PCM_ITS ---
Problem List (1) Cholelithiasis Status: Acute Qualifiers: Cholelithiasis location: gallbladder Cholecystitis presence: with cholecystitis Cholecystitis acuity: acute Biliary obstruction: without biliary obstruction Qualified Code(s): K80.00 - Calculus of gallbladder with acute cholecystitis without obstruction Report of Operation Date of Procedure: 12/27/18 Pre-Operative Diagnosis: Cholelithiasis Post-Operative Diagnosis: Acute cholecystitis Surgery/Procedure Performed:: Laparoscopic cholecystectomy with cholangiogram Description of Surgical Findings:: Inflamed gallbladder containing large stones. Normal intraoperative cholangiograms. Specimen's removed: Gallbladder and contents Description of Procedure: After obtaining informed consent patient was brought back to the operating room. General anesthesia was induced. The abdomen was prepped and draped in usual sterile fashion. A small midline incision was made superior to the umbilicus and deepened to the level of fascia. The fascia was elevated and incised. Next the peritoneum was elevated and incised in the same fashion. Finger sweep was performed and the Rodríguez trocar was placed into the abdomen. The balloon was inflated. The abdomen was inflated to 15 mmHg. Next a camera was introduced into the abdomen and the abdomen was inspected. Next under direct visualization three 5-mm ports were placed one subxiphoid and 2 subcostal. Next the gallbladder was elevated and retracted toward the right shoulder. The peritoneum was stripped from the gallbladder. The infundibulum was located and retracted laterally. The gallbladder was inflamed at the infundibulum. Next the triangle of Calot was dissected and the cystic duct and cystic artery were identified. Cholangiograms were performed. The Garcia clamp was used to clamp across the infundibulum and the catheter needle was inserted into the gallbladder. Under fluoroscopy contrast was instilled into the gallbladder and the common duct, cystic duct as well as proximal hepatic ducts were identified. There was good filling of the duodenum. There were no filling defects noted in the common bile duct. The clamp was removed as well as the needle and the infund ibulum was grasped once more. Three hemolock clips were placed across the cystic duct. The cystic duct was then divided leaving 2 clips on the stump. The cystic artery was clipped and divided in the same fashion. The hook cautery was then used to take the gallbladder off of the gallbladder bed. Hemostasis was obtained. Gallbladder fossa was irrigated and no active bleeding or bile leakage was noted. Next the camera switched to a 5 mm camera and introduced in the subxiphoid port. An Endopouch bag was placed through the umbilical port and the gallbladder was placed into it. The gallbladder was then removed through the umbilical incision. The camera was then reinserted through the umbilical port. The gallbladder fossa was inspected once more and noted to be hemostatic with no leaking bile. The abdomen was suctioned dry. The 5 mm ports were removed under direct visualization. The umbilical port was then removed and the air was removed from the abdomen. Next using an 0 Vicryl suture the umbilical fascia was closed in a [id number] fashion. The umbilical port site was irrigated local anesthetic was administered to all the incisions. All the incisions were closed with interrupted subcuticular 4-0 Monocryl sutures followed by Steri-Strips and dressings. The patient was awoken and taken to PACU in stable condition. - Admit VTE Documentation VTE Mechan Device Prophylaxis: SCD's
--- NOTE | 2018-12-27 09:21 | DCINST_ITS ---
Discharge Diet: Light diet - advance as tolerated Discharge Activity: Return to Normal Activity, May Not Drive - for 2-3 days or while taking narcotic pain medicataions., May Shower - tomorrow over bandages, - - Do not drive, work heavy equipment or sign legal documents for 24 hours. May shower in (days): 1 - with the bandage in place. Lifting Restrictions: 20 lbs for 2 weeks, no strenuous activity Additional Activity Instructions:: Pain medication may cause nausea. You should typically eat light foods as you take your pain medications. Pain medication may also cause constipation. If this is a problem for you, please discuss with your doctor. Call your doctor if your incision/area has: Continuous Slow Oozing, Sudden Increased Bleeding, Increased Pain/ Swelling, Increased Redness, Foul Smelling Discharge, Fever of 101 or Higher Call your doctor if you observe: Fever of 101 or Higher Suture Line Care: Avoid Pulling/Pushing, Avoid Pinching/Bending Additional Dressing/Incision Instructions:: Leave operative bandaids on for 2 days. When you remove dressing, leave Steri-Strips on until your follow-up appointment, or until the Steri-Strips fall off on their own. Instructions: What are Gallstones?, After Gallbladder Surgery, Having Laparoscopic Cholecystectomy Allergies/Adverse Reactions: Allergies Penicillins Allergy (Verified 12/26/18 03:22) Unknown Medications to take at Discharge Hydrocortisone 0.5 mg PO QHS 07/29/16 Hydrocortisone 10 mg PO DAILY 07/29/16 Levothyroxine [Synthroid] 88 mcg PO DAILY 07/29/16 Somatropin [Norditropin Flexpro] 8.8 mg SQ QHS 07/29/16 buPROPion XL [Wellbutrin Xl] 450 mg PO DAILY 07/29/16 Oxycodone HCl/Acetaminophen [Percocet 5/325] 1 - 2 tablet PO Q4H PRN PRN 7 Days #30 tablet 12/27/18 The following prescriptions were given: Oxycodone HCl/Acetaminophen [Percocet 5/325] 1 - 2 tablet PO Q4H PRN PRN 7 Days #30 tablet PRN Reason: Pain Primary Care Physician: Shanika Gurrola MD [Primary Care Provider] - Test Results: Test results from this visit will be discussed in further detail at your follow- up appointment, if applicable. Please Follow Up With: Guilherme Oliveira MD When: Call to make 2 week follow up appt [phone]
[2018-12-27 09:26] LABS: Bedside Glucose 134 mg/dL (70-110)
[2018-12-27] MEDS: 0.9% Normal Saline 1,000 ML 150 ML IV ×3 (09:37→21:18)
[2018-12-27] MEDS: buPROPion (XL) 300 MG TABLET.XL PO (10:56)
[2018-12-27] MEDS: buPROPion (XL) 150 MG TABLET.XL PO (10:56)
--- NOTE | 2018-12-27 11:18 | PCM.PN.HOSP ---
Patient Problems: Active and Suspected Problems Acute cholecystitis (Acute) Cholelithiasis (Acute) Subjective: Patient seen and examined. She had laparoscopic cholecystectomy today and is POD 0. She was found to have acute cholecystitis. She was seen after surgery. Pain is between 5-7, but says it is under control. Review of systems is otherwise negative. Vitals/I&O's: Vital Signs Temp Pulse Resp BP Pulse Ox 98.2 F 90 16 93/51 L 95 12/27/18 10:31 12/27/18 10:31 12/27/18 10:31 12/27/18 10:31 12/27/18 10:31 Oxygen Delivery Method Room Air Weight: 116 lb 13.52 oz Body Mass Index (BMI) 22.8 Finger Stick Blood Glucose 134 Intake and Output for Last 24 Hours 12/25/18 12/26/18 12/27/18 23:59 23:59 23:59 Intake Total 2072 1500 / 1500 Output Total 300 / 300 Balance 2072 1200 / 1200 General: Alert, Cooperative, Confused HEENT: Atraumatic, PERRLA, EOMI, Normocephalic Oral: Dry Mucosa Neck: Supple, No JVD, Negative Carotid Bruits Lungs: Clear to auscultation, Normal air movement Cardiovascular: Regular rate, Regular Rhythm, Normal S1, Normal S2, No murmurs Abdomen: Bowel Sounds Present, Non-Distended, No Hepato-splenomegaly, site of laparoscopic incision is clean and dry. Extremities: No cyanosis, No edema, Capillary Refill Less than 3 Seconds Skin: No rashes, No breakdown Musculoskeletal: No Tenderness to Palpation of Joints or Extremities Lymphatic: No Cervical, Supraclavicular, or Inguinal Adenopathy Neurological: Cranial nerves II-XII grossly intact, Neuro grossly intact, Motor Exam 5/5 strength throughout Psych/Mental Status: Normal Affect, Appropriate, Alert and oriented to time, place, person, mood and affect Laboratory Results 12/26/18 13:13: Troponin I < 0.015 12/26/18 16:00: Potassium 4.0 12/27/18 04:25: Urine Test Negative 12/27/18 05:10: WBC 10.2, RBC 3.99 L, Hgb 11.9 L, Hct 36.1 L, MCV 90.5, MCH 29.8, MCHC 33.0, RDW 12.9, RDW Differential 42.5, Plt Count 292, MPV 9.5, Immature Gran % (Auto) 0.200, Neut % (Auto) 92.7 H, Lymph % (Auto) 5.0 L, [place] % (Auto) 2.1, Eos % (Auto) 0.0, Baso % (Auto) 0.0, Absolute Neuts (auto) 9.5 H, Absolute Lymphs (auto) 0.51 L, Total Counted Not Reportable, Differential Comment 12/27/18 05:10: Sodium 138, Potassium 4.4, Chloride 105, Carbon Dioxide 26.0, Anion Gap 7, BUN 14, Creatinine 1.07 H, Estim Creat Clear Calc 45.18, Est GFR (MDRD) Af Amer 70, Est GFR (MDRD) Non-Af 58 L, BUN/Creatinine Ratio 13.1, Glucose 128 H, Calcium 7.7 L, Magnesium 2.0, Total Bilirubin 0.50, AST 19, ALT 16, Alkaline Phosphatase 86, Total Protein 6.0 L, Albumin 2.7 L, Globulin 3.3, Albumin/Globulin Ratio 0.8 L 12/27/18 05:49: POC Glucose 139 H 12/27/18 09:23: POC Glucose 134 H Current Medications Acetaminophen (Tylenol) 650 mg PO Q6H PRN PRN PRN Reason: PAIN Bupropion HCl (Wellbutrin Xl) 300 mg PO DAILY [facility] Last Admin: 12/27/18 10:56 Dose: 300 mg Bupropion HCl (Wellbutrin Xl) 150 mg PO DAILY [facility] Last Admin: 12/27/18 10:56 Dose: 150 mg Dextrose (D50w Syringe) 0 gm IV X1 PRN; Protocol PRN Reason: Hypoglycemia Enoxaparin Sodium (Lovenox) 40 mg SC DAILY@1000 [facility] Last Admin: 12/26/18 16:27 Dose: 40 mg Glucagon () 1 mg IM .X1 PRN PRN Reason: Hypoglycemia Hydrocortisone Sodium Succinate (Solu-Cortef) 50 mg IV Q6 [facility] Last Admin: 12/27/18 11:04 Dose: 50 mg Hydromorphone HCl (Dilaudid Inj) 0.5 - 1 mg IV Q2H PRN PRN PRN Reason: SEVERE PAIN (6-10/10) Last Admin: 12/27/18 04:17 Dose: 0.5 mg Sodium Chloride () 1,000 mls @ 150 mls/hr IV .Q6H40M [facility] Last Admin: 12/27/18 09:37 Dose: 150 mls/hr Levothyroxine Sodium (Synthroid) 88 mcg PO DAILY@0600 [facility] Last Admin: 12/27/18 01:36 Dose: Not Given Non-Formulary Medication (Somatropin [Norditropin Flexpro]) 8.8 mg SQ QHS [facility] Ondansetron HCl (Zofran) 4 mg IV Q8H PRN PRN PRN Reason: NAUSEA/VOMITING Last Admin: 12/26/18 12:53 Dose: 4 mg Oxycodone HCl (Oxyir) 5 - 10 mg PO Q4H PRN PRN PRN Reason: SEVERE PAIN (6-10/10) Sodium Chloride () 5 - 15 ml IV UD PRN PRN Reason: SALINE FLUSH Last Admin: 12/27/18 04:17 Dose: 10 ml Medical Necessity - Tobacco Use Smoking Status: Never smoker Tobacco Use: Non-smoker Assessment/Plan All Active Problems Acute cholecystitis (Acute) Cholelithiasis (Acute) 48-year-old female admitted with a complaint of abdominal pain. 1. Acute cholecystitis s/p laparoscopic cholecystectomy abdominopelvic CT showed cholelithiasis and prominent periuterine vascular structures and ovarian vein on the left which may be seen with chronic pelvic congestion. today is POD 0;findings of procedure were inflammed gallbladder containing large gallstones with normal intraoperative cholangiogram IV morphine as needed for pain; pain currently well controlled keep hydrated with IVF Normal saline. on IV zofran prn general surgery on board 2. HYpokalemia K was 2.6, and is now up to 4.4 today. will continue monitoring 3. CKD 3 stable. Cr is down to 1.07 today 4. Metabolic alkalosis: resolved. Bicarb is down to 26 today, from 22 on admission. 5. Adrenal insufficiency due to pituitary tumor resection BP has been in the 90s; thought to be due to pain meds will increase IV hydrcortisone to 50mg q6 hours usually on oral hydrocortisone replacement; continue hydration with IVF. 6. Hypothyroidism: on synthroid 7. Depression: on Bupropion DVT prophylaxis: lovenox Code Visit Inpatient E&M: 86130 Subs Hosp L3
--- NOTE | 2018-12-27 11:32 | PN_ITS ---
Patient Problems: Active and Suspected Problems Acute cholecystitis (Acute) Cholelithiasis (Acute) Subjective: Patient seen and examined. She had laparoscopic cholecystectomy today and is POD 0. She was found to have acute cholecystitis. She was seen after surgery. Pain is between 5-7, but says it is under control. Review of systems is otherwise negative. Vitals/I&O's: Vital Signs Temp Pulse Resp BP Pulse Ox 98.2 F 90 16 93/51 L 95 12/27/18 10:31 12/27/18 10:31 12/27/18 10:31 12/27/18 10:31 12/27/18 10:31 Oxygen Delivery Method Room Air Weight: 116 lb 13.52 oz Body Mass Index (BMI) 22.8 Finger Stick Blood Glucose 134 Intake and Output for Last 24 Hours 12/25/18 12/26/18 12/27/18 23:59 23:59 23:59 Intake Total 2072 1500 / 1500 Output Total 300 / 300 Balance 2072 1200 / 1200 General: Alert, Cooperative, Confused HEENT: Atraumatic, PERRLA, EOMI, Normocephalic Oral: Dry Mucosa Neck: Supple, No JVD, Negative Carotid Bruits Lungs: Clear to auscultation, Normal air movement Cardiovascular: Regular rate, Regular Rhythm, Normal S1, Normal S2, No murmurs Abdomen: Bowel Sounds Present, Non-Distended, No Hepato-splenomegaly, site of laparoscopic incision is clean and dry. Extremities: No cyanosis, No edema, Capillary Refill Less than 3 Seconds Skin: No rashes, No breakdown Musculoskeletal: No Tenderness to Palpation of Joints or Extremities Lymphatic: No Cervical, Supraclavicular, or Inguinal Adenopathy Neurological: Cranial nerves II-XII grossly intact, Neuro grossly intact, Motor Exam 5/5 strength throughout Psych/Mental Status: Normal Affect, Appropriate, Alert and oriented to time, place, person, mood and affect Laboratory Results 12/26/18 13:13: Troponin I < 0.015 12/26/18 16:00: Potassium 4.0 12/27/18 04:25: Urine Test Negative 12/27/18 05:10: WBC 10.2, RBC 3.99 L, Hgb 11.9 L, Hct 36.1 L, MCV 90.5, MCH 29.8, MCHC 33.0, RDW 12.9, RDW Differential 42.5, Plt Count 292, MPV 9.5, Immature Gran % (Auto) 0.200, Neut % (Auto) 92.7 H, Lymph % (Auto) 5.0 L, Smith % (Auto) 2.1, Eos % (Auto) 0.0, Baso % (Auto) 0.0, Absolute Neuts (auto) 9.5 H, Absolute Lymphs (auto) 0.51 L, Total Counted Not Reportable, Differential Comment 12/27/18 05:10: Sodium 138, Potassium 4.4, Chloride 105, Carbon Dioxide 26.0, Anion Gap 7, BUN 14, Creatinine 1.07 H, Estim Creat Clear Calc 45.18, Est GFR (MDRD) Af Amer 70, Est GFR (MDRD) Non-Af 58 L, BUN/Creatinine Ratio 13.1, Glucose 128 H, Calcium 7.7 L, Magnesium 2.0, Total Bilirubin 0.50, AST 19, ALT 16, Alkaline Phosphatase 86, Total Protein 6.0 L, Albumin 2.7 L, Globulin 3.3, Albumin/Globulin Ratio 0.8 L 12/27/18 05:49: POC Glucose 139 H 12/27/18 09:23: POC Glucose 134 H Current Medications Acetaminophen (Tylenol) 650 mg PO Q6H PRN PRN PRN Reason: PAIN Bupropion HCl (Wellbutrin Xl) 300 mg PO DAILY [facility] Last Admin: 12/27/18 10:56 Dose: 300 mg Bupropion HCl (Wellbutrin Xl) 150 mg PO DAILY [facility] Last Admin: 12/27/18 10:56 Dose: 150 mg Dextrose (D50w Syringe) 0 gm IV X1 PRN; Protocol PRN Reason: Hypoglycemia Enoxaparin Sodium (Lovenox) 40 mg SC DAILY@1000 [facility] Last Admin: 12/26/18 16:27 Dose: 40 mg Glucagon () 1 mg IM .X1 PRN PRN Reason: Hypoglycemia Hydrocortisone Sodium Succinate (Solu-Cortef) 50 mg IV Q6 [facility] Last Admin: 12/27/18 11:04 Dose: 50 mg Hydromorphone HCl (Dilaudid Inj) 0.5 - 1 mg IV Q2H PRN PRN PRN Reason: SEVERE PAIN (6-10/10) Last Admin: 12/27/18 04:17 Dose: 0.5 mg Sodium Chloride () 1,000 mls @ 150 mls/hr IV .Q6H40M [facility] Last Admin: 12/27/18 09:37 Dose: 150 mls/hr Levothyroxine Sodium (Synthroid) 88 mcg PO DAILY@0600 [facility] Last Admin: 12/27/18 01:36 Dose: Not Given Non-Formulary Medication (Somatropin [Norditropin Flexpro]) 8.8 mg SQ QHS [facility] Ondansetron HCl (Zofran) 4 mg IV Q8H PRN PRN PRN Reason: NAUSEA/VOMITING Last Admin: 12/26/18 12:53 Dose: 4 mg Oxycodone HCl (Oxyir) 5 - 10 mg PO Q4H PRN PRN PRN Reason: SEVERE PAIN (6-10/10) Sodium Chloride () 5 - 15 ml IV UD PRN PRN Reason: SALINE FLUSH Last Admin: 12/27/18 04:17 Dose: 10 ml Medical Necessity - Tobacco Use Smoking Status: Never smoker Tobacco Use: Non-smoker Assessment/Plan All Active Problems Acute cholecystitis (Acute) Cholelithiasis (Acute) 48-year-old female admitted with a complaint of abdominal pain. 1. Acute cholecystitis s/p laparoscopic cholecystectomy * abdominopelvic CT showed cholelithiasis and prominent periuterine vascular structures and ovarian vein on the left which may be seen with chronic pelvic congestion. * today is POD 0;findings of procedure were inflammed gallbladder containing large gallstones with normal intraoperative cholangiogram * IV morphine as needed for pain; pain currently well controlled * keep hydrated with IVF Normal saline. * on IV zofran prn * general surgery on board * 2. HYpokalemia * K was 2.6, and is now up to 4.4 today. * will continue monitoring * 3. CKD 3 * stable. Cr is down to 1.07 today * 4. Metabolic alkalosis: * resolved. * Bicarb is down to 26 today, from 22 on admission. * 5. Adrenal insufficiency due to pituitary tumor resection * BP has been in the 90s; thought to be due to pain meds * will increase IV hydrcortisone to 50mg q6 hours * usually on oral hydrocortisone replacement; * continue hydration with IVF. * 6. Hypothyroidism: on synthroid 7. Depression: on Bupropion DVT prophylaxis: lovenox Code Visit Inpatient E&M: 48906 Subs Hosp L3
[2018-12-27] MEDS: Levothyroxine 88 MCG Tablet PO (21:26)
[2018-12-28 00:24] VITALS: PULSE 97
[2018-12-28 02:14] VITALS: BP 112/62; PULSE 84; RESP 18; TEMP 36.8; O2SAT 97
[2018-12-28 03:56] VITALS: PULSE 99
[2018-12-28 05:21] LABS: Absolute Lymphocyte Count 0.75 X10^3/ul (0.83-4.51); Absolute Neutrophil Count 18.7 X10^3/uL (2.0-7.7); Hematocrit 33.8 % (37-47); Hemoglobin 10.9 g/dl (12.0-15.0); Lymphocyte # 0.75 X10^3/ul (4.0); Lymphocyte % 3.7 % (19-41); Mean Corp Hgb Conc 32.2 g/gl (32-36); Mean Corpuscular Hgb 29.7 pg (27.0-32.0); Mean Corpuscular Volume 92.1 fL (81-99); Mean Platelet Vol. 9.6 fl (6.2-12.0); Monocyte# 0.63 X10^3/uL; Monocyte% 3.1 % (0-10); Neutrophil # 18.66 X10^3/uL (2.7-7.7); Platelet Count 273 K/mm3 (150-450); RBC Distribution Width CV 13.2 % (11.6-14.6); RBC Distribution Width SD 43.3 fl (35.1-43.9); Red Blood Count 3.67 M/mm3 (4.2-5.4); White Blood Count 20.1 K/mm3 (4.4-11.0)
[2018-12-28 05:23] LABS: POSITIVE COUNT NO; POSITIVE DIFFERENTIAL NO; POSITIVE MORPHOLOGY NO
[2018-12-28] MEDS: Hydrocortisone Sod Succinate 100 MG/2 ML Vial 50 MG IV (05:33)
[2018-12-28] MEDS: 0.9% Normal Saline 1,000 ML 150 ML IV (05:34)
[2018-12-28 05:41] LABS: ALB/GLOB Ratio 0.8 RATIO (0.9-2.4); AST(SGOT) 33 U/L (15-37); Alanine Aminotransfer ALT/SGPT 24 U/L (13-56); Albumin, Serum 2.4 g/dL (3.2-5.0); Alkaline Phosphatase 71 U/L (45-117); Anion Gap 7 (5-15); BUN 10 mg/dL (7-18); BUN/Creat Ratio 11.7 RATIO (10-20); Chloride 112 mmol/L (98-107); Creatinine, Serum 0.85 mg/dL (0.55-1.02); EST Glomerular Filtration Rate 75 mL/min (>60); Est Glom Filt Rate - Afr Amer 90 mL/min (>60); Estimated Creatinine Clearance 56.87 ml/min; Glucose 119 mg/dL (74-106); Magnesium 2.1 mg/dL (1.6-2.6); Potassium 3.4 mmol/L (3.5-5.1); Protein, Total 5.4 g/dL (6.4-8.2); Sodium Level 142 mmol/L (136-145)
[2018-12-28 07:00] VITALS: PULSE 81
--- NOTE | 2018-12-28 08:23 | PN.SURG_ITS ---
Patient Problems: Active and Suspected Problems Acute cholecystitis (Acute) Cholelithiasis (Acute) Subjective: Patient seems to be doing well this morning. She has not eaten yet but she has no nausea or vomiting. The pain in her right upper quadrant has resolved and she has expected incisional pain. - Physical Exam General: Alert, Oriented x3, Cooperative Neck: No JVD Lungs: Normal air movement Cardiovascular: Regular rate, Regular Rhythm Abdomen: Soft, Non-Distended, Tender, - - Ecchymosis around incisions Vital Signs Temp Pulse Resp BP Pulse Ox 98.2 F 81 18 112/62 97 12/28/18 02:14 12/28/18 07:00 12/28/18 02:14 12/28/18 02:14 12/28/18 02:14 Oxygen Delivery Method Room Air Weight: 116 lb 13.52 oz Body Mass Index (BMI) 22.8 Finger Stick Blood Glucose 134 Intake and Output for Last 24 Hours 12/26/18 12/27/18 12/28/18 23:59 23:59 23:59 Intake Total 3 / 2073 3973 / 3973 926 / 926 Output Total 1300 / 1300 Balance 2072 / 2072 2673 / 2673 926 / 926 Laboratory Tests Past 24 Hrs 12/28/18 12/28/18 04:56 04:56 WBC 20.1 H RBC 3.67 L Hgb 10.9 L Hct 33.8 L MCV 92.1 MCH 29.7 MCHC 32.2 RDW 13.2 RDW Differential 43.3 Plt Count 273 MPV 9.6 Immature Gran % (Auto) 0.200 Neut % (Auto) 93.0 H Lymph % (Auto) 3.7 L [place] % (Auto) 3.1 Eos % (Auto) 0.0 Baso % (Auto) 0.0 Absolute Neuts (auto) 18.7 H Absolute Lymphs (auto) 0.75 L Total Counted Not Reportable Sodium 142 Potassium 3.4 L Chloride 112 H Carbon Dioxide 23.0 Anion Gap 7 BUN 10 Creatinine 0.85 Estim Creat Clear Calc 56.87 Est GFR (MDRD) Af Amer 90 Est GFR (MDRD) Non-Af 75 BUN/Creatinine Ratio 11.7 Glucose 119 H Calcium 7.0 L Magnesium 2.1 Total Bilirubin 0.30 AST 33 ALT 24 Alkaline Phosphatase 71 Total Protein 5.4 L Albumin 2.4 L Globulin 3.0 Albumin/Globulin Ratio 0.8 L POC Glucose 12/27/18 09:23 POC Glucose 134 H Medical Necessity - Tobacco Use Smoking Status: Never smoker Tobacco Use: Non-smoker Assessment/Plan All Active Problems Acute cholecystitis (Acute) Cholelithiasis (Acute) 48-year-old female status post laparoscopic cholecystectomy for acute cholecystitis 1. Patient seems to be doing well this morning. If she tolerates regular diet she can be discharged home. Her white count is elevated today but I believe this is due to the steroids. She has no nausea or vomiting and her pain is only incisional. Follow-up in 2 weeks. Guilherme Oliveira MD Pager: [facility] [address] [place] [address], [address] [place] [address] Office:
--- NOTE | 2018-12-28 08:31 | DCINST_ITS ---
- Discharge Diagnoses Current Active Problems: Current Active and Chronic Problems Acute cholecystitis (Acute) Cholelithiasis (Acute) You will use the following diet at home:: No restrictions Your food should be the consistency of: Regular Your liquids should be the consistency of: Regular/Thin Discharge Activity: Return to Normal Activity, May Not Drive - for 2-3 days or while taking narcotic pain medicataions., May Shower - tomorrow over bandages, - - Do not drive, work heavy equipment or sign legal documents for 24 hours. May shower in (days): 1 - with the bandage in place. Weight Bearing Status: Weight bearing as tolerated Additional Activity Instructions:: Pain medication may cause nausea. You should typically eat light foods as you take your pain medications. Pain medication may also cause constipation. If this is a problem for you, please discuss with your doctor. Call your doctor if your incision/area has: Continuous Slow Oozing, Sudden Increased Bleeding, Increased Pain/ Swelling, Increased Redness, Foul Smelling Discharge, Fever of 101 or Higher Call your doctor if you observe: Fever of 101 or Higher, - - worsening abdominal pain Suture Line Care: Avoid Pulling/Pushing, Avoid Pinching/Bending Additional Dressing/Incision Instructions:: Leave operative bandaids on for 2 days. When you remove dressing, leave Steri-Strips on until your follow-up appointment, or until the Steri-Strips fall off on their own. Instructions: What are Gallstones?, After Gallbladder Surgery, Having Laparoscopic Cholecystectomy Allergies/Adverse Reactions: Allergies Penicillins Allergy (Verified 12/26/18 03:22) Unknown Medications to take at Discharge Hydrocortisone 5 mg PO QHS 07/29/16 Hydrocortisone 10 mg PO DAILY 07/29/16 Levothyroxine [Synthroid] 88 mcg PO DAILY 07/29/16 Somatropin [Norditropin Flexpro] 8.8 mg SQ QHS 07/29/16 buPROPion XL [Wellbutrin Xl] 450 mg PO DAILY 07/29/16 Oxycodone HCl/Acetaminophen [Percocet 5/325] 1 - 2 tablet PO Q4H PRN PRN 7 Days #30 tablet 12/27/18 The following prescriptions were given: Oxycodone HCl/Acetaminophen [Percocet 5/325] 1 - 2 tablet PO Q4H PRN PRN 7 Days #30 tablet PRN Reason: Pain Primary Care Physician: Shanika Gurrola MD [Primary Care Provider] - Please follow up with your Primary Care Physician in: one week Test Results: Test results from this visit will be discussed in further detail at your follow- up appointment, if applicable. Please Follow Up With: Guilherme Oliveira MD When: Call to make 2 week follow up appt [phone] Proposed Discharge Date: 12/28/18
--- NOTE | 2018-12-28 08:33 | DS.PCM_ITS ---
Discharge Date and Diagnosis - Problem List Patient Problems: Active and Suspected Problems Acute cholecystitis (Acute) Cholelithiasis (Acute) Date of Admission: 12/26/18 Date of Discharge: 12/28/18 - Primary Discharge Diagnosis Active and Suspected Problems Acute cholecystitis (Acute) Cholelithiasis (Acute) Hospital Course and Treatment Imaging Results: Diagnostic Data Chest X-Ray 12/26/18 03:21 IMPRESSION: 1. No acute disease or significant change. 2. COPD. at 0350 Reported and signed by: Santos Quiroz MD Electronically Signed: Santos Quiroz, at 3:49 EDT Tel , Service support , Abdomen/Pelvis CT 12/26/18 04:11 IMPRESSION: 1. Cholelithiasis. No biliary dilatation, free fluid, or acute disease identified. 2. Prominent periuterine vascular structures and ovarian vein on the left and this may be seen with chronic pelvic congestion. Individualized dose optimization techniques were used for this CT. at 0530 Reported and signed by: Santos Quiroz MD Electronically Signed: Santos Quiroz, at 5:29 EDT Tel , Service support , Gallbladder Ultrasound 12/26/18 08:25 IMPRESSION: Multiple gallstones. Multiple small gallbladder wall polyps. Electronically Signed: Nestor rOtiz, at 11:33 EDT Tel , Service support , Cholangiogram 12/27/18 08:00 IMPRESSION: No filling defect to suggest calculi or sludge/debris. Potential stenosis involving distal common bile duct. No extrabiliary or extraenteric contrast. No significant incidental finding. Comment: Fluoroscopy services provided for clinical procedure. Please refer to Dr. Oliveira's procedure note for additional detail. Electronically Signed: Raheem Villegas MD at 9:37 EDT , Service support , general surgery- Dr Oliveira Operations: cholecystecomy - laparoscopic Procedures: None Summary of Care Provided: The patient is a 48 year old F with a past medical history of pituitary tumor status post resection with resultant adrenal insufficiency, hypothyroidism as well as depression. She was admitted through the ED on 12/26/2018 with a complaint of abdominal pain of one day duration. Abdominal pain started in the early hours of this morning and was mainly in the right upper quadrant and epigastric area. She described the pain as cramping and had associated nausea and vomiting. She vomited about 6 times prior to admission. She denied any fever chills, palpitations or dizziness or chest pain or diarrhea. She has not had such abdominal pain in the past and denies any history of peptic ulcer disease or liver disease. Vitals in the ED was stable and chemistries were significant for potassium of 2.6 as well as creatinine of 1.3 which is around her baseline. CBC was within normal limits. Chest x-ray showed evidence of COPD with hyperinflation but no acute cardiopulmonary process. Abdominal CT s howed cholelithiasis with borderline over distention of gallbladder measuring about 4 cm in diameter and 1.6 cm dependent gallstones with no gallbladder wall thickening or pericholecystic inflammatory changes and no biliary dilatation seen. She was admitted to be managed for acute abdominal pain due to probable acute cholelithiasis. She was started on IVF, and IV morphine prn for pain and kept n.p.o. She had a gallbladder ultrasound done which showed multiple gallstones and multiple gallbladder wall small polyps. General surgery was consulted and she was started on IV Zosyn. She had laparoscopic cholecystectomy on 12/27/2018 findings of which were acute cholecystitis with normal intraoperative cholangiogram. Patient remained stable after procedure. Of note, she was also placed on stress dose of IV hydrocortisone during admission on account of her history of adrenal insufficiency from pituitary tumor resection. Patient remained stable her blood pressure though went a bit low due to pain meds during surgery, rebounded with IV fluid administration. Patient remained stable and was discharged home on 12/28/2018. She was switched back to her oral hydrocortisone. She is to follow-up with general surgery and her primary care doctor. She was given a prescription for p.o. Percocet 1 to 2 tablets p.o. q. every 4 hours as needed for total of 30 tablets by general surgery. Patient seen and examined prior to discharge. She had no complaints. Pain was well controlled. Review of systems was otherwise negative. Labs and vitals reviewed. Home medications reviewed and reconciled. o/e: Vital Signs Height 5 ft Weight: 116 lb 13.52 oz Weight in Pounds 116.8 lbs Pulse Ox 96 Temperature 98.1 F Pulse Rate 94 Respiratory Rate 16 Blood Pressure [BP] 94/68 Blood Pressure 102/65 Blood Pressure Position Sitting General: Alert, Cooperative, HEENT: Atraumatic, PERRLA, EOMI, Normocephalic Oral: Dry Mucosa Neck: Supple, No JVD, Negative Carotid Bruits Lungs: Clear to auscultation, Normal air movement Cardiovascular: Regular rate, Regular Rhythm, Normal S1, Normal S2, No murmurs Abdomen: Bowel Sounds Present, Non-Distended, No Hepato-splenomegaly, dressing over surgical sites minimally stained with blood Extremities: No cyanosis, No edema, Capillary Refill Less than 3 Seconds Skin: No rashes, No breakdown Musculoskeletal: No Tenderness to Palpation of Joints or Extremities Lymphatic: No Cervical, Supraclavicular, or Inguinal Adenopathy Neurological: Cranial nerves II-XII grossly intact, Neuro grossly intact, Motor Exam 5/5 strength throughout Psych/Mental Status: Normal Affect, Appropriate, Alert and oriented to time, place, person, mood and affect Instructions for care for surgical site and dressings as per instructions given by general surgery. Patient Problems: Active and Suspected Problems Acute cholecystitis (Acute) Cholelithiasis (Acute) - Physical Exam Vital Signs Temp Pulse Resp BP Pulse Ox 98.2 F 81 18 112/62 97 12/28/18 02:14 12/28/18 07:00 12/28/18 02:14 12/28/18 02:14 12/28/18 02:14 Oxygen Delivery Method Room Air Weight: 116 lb 13.52 oz Body Mass Index (BMI) 22.8 Finger Stick Blood Glucose 134 Intake and Output for Last 24 Hours 12/26/18 12/27/18 12/28/18 23:59 23:59 23:59 Intake Total 2073 / 2073 3973 / 3973 926 / 926 Output Total 1300 / 1300 Balance 2072 / 2072 2673 / 2673 926 / 926 Laboratory Tests Past 24 Hrs 12/28/18 12/28/18 04:56 04:56 WBC 20.1 H RBC 3.67 L Hgb 10.9 L Hct 33.8 L MCV 92.1 MCH 29.7 MCHC 32.2 RDW 13.2 RDW Differential 43.3 Plt Count 273 MPV 9.6 Immature Gran % (Auto) 0.200 Neut % (Auto) 93.0 H Lymph % (Auto) 3.7 L Bollinger % (Auto) 3.1 Eos % (Auto) 0.0 Baso % (Auto) 0.0 Absolute Neuts (auto) 18.7 H Absolute Lymphs (auto) 0.75 L Total Counted Not Reportable Sodium 142 Potassium 3.4 L Chloride 112 H Carbon Dioxide 23.0 Anion Gap 7 BUN 10 Creatinine 0.85 Estim Creat Clear Calc 56.87 Est GFR (MDRD) Af Amer 90 Est GFR (MDRD) Non-Af 75 BUN/Creatinine Ratio 11.7 Glucose 119 H Calcium 7.0 L Magnesium 2.1 Total Bilirubin 0.30 AST 33 ALT 24 Alkaline Phosphatase 71 Total Protein 5.4 L Albumin 2.4 L Globulin 3.0 Albumin/Globulin Ratio 0.8 L POC Glucose 12/27/18 09:23 POC Glucose 134 H Discharge Diet: Light diet - advance as tolerated Discharge Activity: Return to Normal Activity, May Not Drive - for 2-3 days or while taking narcotic pain medicataions., May Shower - tomorrow over bandages, - - Do not drive, work heavy equipment or sign legal documents for 24 hours. May shower in (days): 1 - with the bandage in place. Weight Bearing Status: Weight bearing as tolerated Additional Activity Instructions:: Pain medication may cause nausea. You should typically eat light foods as you take your pain medications. Pain medication may also cause constipation. If this is a problem for you, please discuss with your doctor. Call your doctor if your incision/area has: Continuous Slow Oozing, Sudden Increased Bleeding, Increased Pain/ Swelling, Increased Redness, Foul Smelling Discharge, Fever of 101 or Higher Call your doctor if you observe: Fever of 101 or Higher, - - worsening abdominal pain Suture Line Care: Avoid Pulling/Pushing, Avoid Pinching/Bending Additional Dressing/Incision Instructions:: Leave operative bandaids on for 2 days. When you remove dressing, leave Steri-Strips on until your follow-up appointment, or until the Steri-Strips fall off on their own. Home Medications: Medications to take at Discharge Hydrocortisone 5 mg PO QHS 07/29/16 Hydrocortisone 10 mg PO DAILY 07/29/16 Levothyroxine [Synthroid] 88 mcg PO DAILY 07/29/16 Somatropin [Norditropin Flexpro] 8.8 mg SQ QHS 07/29/16 buPROPion XL [Wellbutrin Xl] 450 mg PO DAILY 07/29/16 Oxycodone HCl/Acetaminophen [Percocet 5/325] 1 - 2 tablet PO Q4H PRN PRN 7 Days #30 tablet 12/27/18 Following Prescrptions Were Given to Patient: Oxycodone HCl/Acetaminophen [Percocet 5/325] 1 - 2 tablet PO Q4H PRN PRN 7 Days #30 tablet PRN Reason: Pain Primary Care Physician: Shanika Gurrola MD [Primary Care Provider] - Please follow up with your Primary Care Physician in: one week Please Follow Up With: Guilherme Oliveira MD When: Call to make 2 week follow up appt [phone] Patient Instructions: What are Gallstones?, After Gallbladder Surgery, Having Laparoscopic Cholecystectomy Disposition: Home Minutes spent on discharge:: 40 Patient Condition:: Stable Medical Necessity - Tobacco Use Smoking Status: Never smoker Tobacco Use: Non-smoker Meaningful Use Info Meaningful Use Diagnoses (Choose all that apply): None applicable Code Visit OBSV E&M: 77077 Observation care discharge
[2018-12-28 08:53] VITALS: BP 102/65; PULSE 94; RESP 16; TEMP 36.7; O2SAT 96
[2018-12-28] MEDS: oxyCODONE 5 MG Tablet PO (09:17)
[2018-12-28] MEDS: Hydrocortisone 10 MG Tablet PO (09:18)
[2018-12-28] MEDS: buPROPion (XL) 150 MG TABLET.XL PO (09:19)
[2018-12-28] MEDS: buPROPion (XL) 300 MG TABLET.XL PO (09:19)
[2018-12-28] MEDS: Docusate Sodium 100 MG Capsule PO (09:41)
== END 2018-12-28 08:31 | disposition home or self-care (01) ==
LOC: ED 04:40 → PCU 07:35
PROVIDERS: Surgery; Admitting Provider Student in an Organized Health Care Education/Training Program; Emergency Provider Emergency Medicine; Family Provider Internal Medicine; PCP Internal Medicine; Visit Provider Student in an Organized Health Care Education/Training Program
PROC: (CPT 47610; principal; 2018-12-27 08:00)
DX: K80.12 Calculus of gallbladder with acute and chronic cholecystitis without obstruction (principal); E03.9 Hypothyroidism, unspecified; E27.40 Unspecified adrenocortical insufficiency; E87.6 Hypokalemia; F32.9 Major depressive disorder, single episode, unspecified; E87.3 Alkalosis; N18.3 Chronic kidney disease, stage 3 (moderate); E86.0 Dehydration; Z79.899 Other long term (current) drug therapy; Z79.52 Long term (current) use of systemic steroids; E78.00 Pure hypercholesterolemia, unspecified
CPT/HCPCS: 47563; 36415; 71045; 74177; 74300; 76000; 76705; 80048; 80053; 80076; 81025; 82962; 83690; 83735; 84132; 84484; 85025; 88304; 93005; 96361; 96365; 96366; 96372; 96375; 96376; 99218; 99285; J7030; Q9967; A4216; G0378; J2405

== ENCOUNTER → 2019-01-01 14:47 | Outpatient (CLI) | payer OTHER, SELFPAY ==
[2018-12-27 07:30] VITALS: BMI 22.8
--- NOTE | 2019-01-01 14:55 | CT_ITS ---
STUDY: CARDIAC CALCIUM SCORING - CT CHEST REASON FOR EXAM: Female, 48 years old. Coronary calcium screening, over read. RADIATION DOSAGE (If Supplied By Facility): DLP = ( 195.04 ) mGycm TECHNIQUE: Axial non-enhanced images were acquired through the heart for the sole purpose of measuring coronary artery calcium. Individualized dose optimization techniques were used for this CT. COMPARISON: None. FINDINGS: Upper abdomen, body wall soft tissues, osseous structures, mediastinal contents, great vessels, lungs within the [id number] exhibit no acute process. No cardiomegaly or pericardial effusion. The right and left coronary arteries each emerge from the appropriate coronary sinus, right coronary dominance to the PDA. Single tiny focus of coronary calcium is visible proximal LAD. CT/CCTA Calcium Scoring IMPRESSION: The coronary calcium score is reported under separate cover with cardiology. Please see that report. Minimal coronary calcium proximal LAD. No other significant thoracic process is evident. Electronically Signed: Goldy Saenz MD at 11:02 EDT Tel , Service support ,
--- NOTE | 2019-01-01 14:55 | CT_ITS ---
STUDY: CARDIAC CALCIUM SCORING - CT CHEST REASON FOR EXAM: Female, 48 years old. Coronary calcium screening, over read. RADIATION DOSAGE (If Supplied By Facility): DLP = ( 195.04 ) mGycm TECHNIQUE: Axial non-enhanced images were acquired through the heart for the sole purpose of measuring coronary artery calcium. Individualized dose optimization techniques were used for this CT. COMPARISON: None. FINDINGS: Upper abdomen, body wall soft tissues, osseous structures, mediastinal contents, great vessels, lungs within the [id number] exhibit no acute process. No cardiomegaly or pericardial effusion. The right and left coronary arteries each emerge from the appropriate coronary sinus, right coronary dominance to the PDA. Single tiny focus of coronary calcium is visible proximal LAD. CT/Limited Chest CT w/CCTA IMPRESSION: The coronary calcium score is reported under separate cover with cardiology. Please see that report. Minimal coronary calcium proximal LAD. No other significant thoracic process is evident. Electronically Signed: Goldy Saenz MD at 11:02 EDT Tel , Service support ,
[2019-01-01 15:03] VITALS: BP 110/69; PULSE 73; RESP 16; O2SAT 98; BMI 22.8
--- NOTE | 2019-01-04 08:23 | CA.SCORE ---
Calcium Scoring Date of Study:: 01/01/19 Coronary Calcium Scoring: High-resolution Computed Tomographic imaging of the chest was performed on 01-01-2019 with particular attention paid to the coronary arteries. Images from the examination were analyzed for the presence and extent of coronary artery calcification , using coronary calcium quantification software. The patient tolerated the procedure well and there were no complications. The results of the coronary calcification analysis are provided below. - Findings Left Main (LM): 0 Left Anterior Descending (LAD): 0 Left Circumflex (LCX): 0 Right Coronary Artery (RCA): 0 Total Agatston Score: 0 Percentile Rankin - 50% of people of the same gender and similar age had the same or lower scores - Conclusion Calcium Scoring Interpretation: Calcium Score Interpretation 0 No identifiable atherosclerotic plaque. Very low cardiovascular disease risk. <5% chance of presence coronary artery disease A Negative Examination 1-10 Minimal Plaque burden. Significant coronary artery disease very unlikely. 11-100 Mild plaque burden. Likely mild or minimal coronary atherosclerosis. 101-400 Moderate plaque burden Moderate non-obstructive coronary artery disease highly likely. Over 400 Extensive plaque burden. High likelihood of at least one significant coronary stenosis (>50% diameter) Calcium Score: 0 Negative Examination - Continue cardiovascular risk factor evaluation/care as deemed appropriate
== END ==
PROVIDERS: Family Provider Internal Medicine; PCP Internal Medicine; Referring Provider Internal Medicine; Visit Provider Internal Medicine
DX: Z82.49 Family history of ischemic heart disease and other diseases of the circulatory system (principal)
CPT/HCPCS: 75571; 76380

== ENCOUNTER 2019-03-01 18:29 | Emergency (ER) | payer OTHER, SELFPAY ==
[2019-01-01 15:03] VITALS: BMI 22.8
[2019-03-01 18:29] VITALS: BP 101/69; PULSE 110; RESP 18; TEMP 36.5; O2SAT 100
[2019-03-01 18:30] VITALS: BP 101/69; PULSE 110; RESP 18; TEMP 36.5; O2SAT 100; BMI 23.1
[2019-03-01 18:39] VITALS: BP 101/69; PULSE 110; RESP 18; TEMP 36.5; O2SAT 100
[2019-03-01] MEDS: 0.9% Normal Saline 1,000 ML 1000 ML IV (18:58)
[2019-03-01] MEDS: Ondansetron 4 MG/2 ML Vial IV ×2 (18:58→20:22)
[2019-03-01] MEDS: Hydrocortisone Sod Succinate 100 MG/2 ML Vial 20 MG IV (19:00)
[2019-03-01 19:14] LABS: Absolute Lymphocyte Count 0.74 X10^3/ul (0.83-4.51); Absolute Neutrophil Count 15.3 X10^3/uL (2.0-7.7); Basophil# 0.02 X10^3/uL; Basophil% 0.1 % (0-1); Eosinophil# 0.23 X10^3/uL; Eosinophils% 1.4 % (0-5); Hematocrit 42.6 % (37-47); Hemoglobin 13.7 g/dl (12.0-15.0); Lymphocyte # 0.74 X10^3/ul (4.0); Lymphocyte % 4.4 % (19-41); Mean Corp Hgb Conc 32.2 g/gl (32-36); Mean Corpuscular Hgb 29.8 pg (27.0-32.0); Mean Corpuscular Volume 92.6 fL (81-99); Mean Platelet Vol. 9.3 fl (6.2-12.0); Monocyte# 0.34 X10^3/uL; Neutrophil # 15.31 X10^3/uL (2.7-7.7); Neutrophil % 91.9 % (47-70); POSITIVE COUNT NO; POSITIVE DIFFERENTIAL NO; POSITIVE MORPHOLOGY NO; Platelet Count 295 K/mm3 (150-450); RBC Distribution Width CV 13.6 % (11.6-14.6); White Blood Count 16.7 K/mm3 (4.4-11.0)
[2019-03-01 19:21] LABS: Anion Gap 4 (5-15); BUN 21 mg/dL (7-18); BUN/Creat Ratio 19.3 RATIO (10-20); Calcium,Total 8.5 mg/dL (8.5-10.1); Chloride 107 mmol/L (98-107); Creatinine, Serum 1.09 mg/dL (0.55-1.02); EST Glomerular Filtration Rate 56 mL/min (>60); Est Glom Filt Rate - Afr Amer 68 mL/min (>60); Estimated Creatinine Clearance 44.35 ml/min; Glucose 85 mg/dL (74-106); Potassium 3.4 mmol/L (3.5-5.1); Sodium Level 138 mmol/L (136-145)
--- NOTE | 2019-03-01 19:46 | ED.VIS.GI ---
History of Present Illness Chief Complaint: Nausea/Vomiting/Diarrhea Narrative: Patient presenting secondary to nausea vomiting. Patient has an underlying history of having adrenal insufficiency and is on chronic steroids. Patient developed nausea and vomiting today but has been relatively severe. She reports that she believes that it potentially is from food poisoning. She denies any abdominal pain. She does endorse that she has been having some loose stools associated with it. No fevers or headache. No blood or bile in her emesis. No blood in her stools. Review of systems otherwise negative. Past Medical History - Allergies and Home Meds Allergies/Adverse Reactions: Allergies Penicillins Allergy (Verified 03/01/19 18:29) Unknown Primary Care Physician: Shanika Gurrola MD [Primary Care Provider] - 2 Days Surgical History: - - pituitary tumor resection Smoking Status: Never smoker - Family History Maternal Family History: Reports: Heart Disease Paternal Family History: Reports: No pertinent history Review of Systems All systems negative except as indicated General: Reports: Malaise. Denies: Fever Gastrointestinal: Reports: Nausea, Vomiting, Diarrhea Physical Exam Vital Signs/Narrative: Vital Signs Temp Pulse Resp BP Pulse Ox 03/01/19 18:39 97.7 F L 110 H 18 101/69 100 03/01/19 18:30 97.7 F L 110 H 18 101/69 100 03/01/19 18:29 97.7 F L 110 H 18 101/69 100 General: - - Thin Head: Normocephalic, Atraumatic Eyes: Perrl, EOMI ENT: Moist mucous membranes, No rhinorrhea Neck: Supple, Nontender Cardiovascular: Tachycardia - mild Respiratory: No distress, CTA bilaterally, Chest nontender Abdomen: Soft, Nontender, Nondistended, Normal bowel sounds Back: Nontender, Normal Inspection Extremities: Nontender, No edema Skin: Normal color, No rash Neurological: Alert, Oriented x3, Cranial nerves II-XII grossly intact, Normal Strength, Normal Sensation Psychological: Normal affect, Normal Mood Diagnostic/Tx/Re-eval - Medical Decision Making Patient presented secondary to nausea vomiting. She has benign abdominal exam do not believe that imaging is indicated. CBC demonstrates a leukocytosis, chemistry shows mild hypokalemia normal renal function no evidence of anion gap or acidosis. Patient was given fluid hydration and Zofran and had significant some dramatic improvement. At this point I believe the patient is appropriate for discharge. She was given a stress dose of her steroids through IV, and was recommended to stress dose herself at home. Patient was discharged in improved condition. Disposition: Home ED Disposition - Plan for ED Patient: Disposition: Home or Assisted Living Diagnosis: Gastritis Instructions: FOOD POISONING or GASTROENTERITIS (6y-Adult) Prescriptions: Ondansetron [Zofran Odt] 4 mg PO Q8H PRN PRN #10 tab PRN Reason: Nausea Prescription Printed Referrals: Shanika Gurrola MD [Primary Care Provider] - 2 Days
[2019-03-01 20:26] VITALS: BP 96/64; PULSE 111; RESP 16; O2SAT 99
--- NOTE | 2019-03-01 20:29 | ED.RN ---
REVIEWED D/C INSTRUCTIONS, FOLLOW UP CARE, PRESCRIPTION, AND S/S THAT WOULD WARRANT A RETURN TO THE ED WITH PT. PT VERBALIZED AN UNDERSTANDING AND DENIES FURTHER QUESTIONS FOR THIS RN. PT SKIN P/W/D, RESP EVEN AND UNLABORED, PT A&O X 3, NO DISTRESS NOTED. PT AMBULATED OUT OF ED, GAIT STEADY.
== END 2019-03-01 20:30 | disposition home or self-care (01) ==
PROVIDERS: Emergency Provider Emergency Medicine; Family Provider Internal Medicine; PCP Internal Medicine
DX: K29.70 Gastritis, unspecified, without bleeding (principal); E27.40 Unspecified adrenocortical insufficiency; Z79.52 Long term (current) use of systemic steroids
CPT/HCPCS: 80048; 85025; 96361; 96374; 96375; 96376; 99283; J7030; A4216; J2405

== ENCOUNTER → 2019-07-16 09:47 | Outpatient (CLI) | payer OTHER, SELFPAY ==
--- NOTE | 2019-07-16 09:51 | CDU_ITS ---
Reason For Study: ALTERATION OF SENSATION Rt. Velocities/BP Lt. Velocities/BP Prox CCA 92/29 cm/sec. Prox CCA 79/24 cm/sec. Mid CCA 68/28 cm/sec. Mid CCA 66/21 cm/sec. Dist CCA 76/29 cm/sec. Dist CCA 66/24 cm/sec. Prox ICA 74/31 cm/sec. Prox ICA 69/24 cm/sec. Mid ICA 75/36 cm/sec. Mid ICA 91/42 cm/sec. Dist ICA 82/44 cm/sec. Dist ICA 107/51 cm/sec. Rt. ICA/CCA = .9. Lt. ICA/CCA = 1.4. Prox ECA 79/19 cm/sec. Prox ECA 75/17 cm/sec. Rt. Vert. 30/12 cm/sec. Lt. Vert. 53/28 cm/sec. Right Extracranial There is intimal thickening but no significant atherosclerotic plaque noted in the right common carotid artery. There is no significant atherosclerotic plaque noted in the right internal carotid artery. There is no significant atherosclerotic plaque noted in the right external carotid artery. Antegrade flow is noted in the right vertebral artery. Left Extracranial There is intimal thickening but no significant atherosclerotic plaque noted in the left common carotid artery. There is no significant atherosclerotic plaque noted in the left internal carotid artery. There is heterogeneous, irregular atherosclerotic plaque noted in the left external carotid artery. Antegrade flow is noted in the left vertebral artery. Procedure Carotid Duplex [id number]. Exam performed in department. Interpretation Summary No significant atherosclerotic plaque or stenosis noted in the internal carotid arteries bilaterally. Flow within the vertebral arteries is antegrade bilaterally. Ordering Physician: ALEKSEY PERALTA Referring Physician: ALEKSEY PERALTA Performed By: Sun Londono, RDCS, RVT
--- NOTE | 2019-07-16 11:30 | MRI_ITS ---
STUDY: MRI BRAIN WITH AND WITHOUT CONTRAST REASON FOR EXAM: Female, 49 years old. Multiple sclerosis, no new complaints from patient TECHNIQUE: Standardized multiplanar fat and water weighted pulse sequences were obtained. IV Dotarem 10 was administered for the contrast portion of the examination. COMPARISON: MRI of the brain dated November 05, 2016. FINDINGS: There is mild cerebral atrophy with widening of the extra-axial spaces and ventricular dilatation. Normal white matter tracts of the supratentorial brain. There is no evidence for recent intracranial ischemia or other cause of cytotoxic edema on diffusion weighted imaging (DWI). There are no demyelinating plagues of the supratentorial brain, brainstem or cerebellum. There are no findings suspicious for multiple sclerosis (MS). No hydrocephalus. No midline shift. Normal bilateral basal ganglia. Normal thalami. There is no extra-axial fluid accumulation. Normal flow voids within the major intracranial circulation suggesting patency by spin echo criteria. Normal venous enhancement. There is no enhancing intra-axial or extra-axial abnormality. There is enlargement of the sella turcica with increased CSF within the sella and flattening of the pituitary gland consistent with an empty sellar syndrome. Normal infundibular stalk, hypothalamus, and optic chiasm. Normal tectal plate and pineal gland. Normal midbrain, sabrina and medulla. Normal cerebellum. Normal basal cisterns. Normal bilateral temporal bones. Normal bilateral internal auditory canals. No demonstrated orbital abnormality, within the constraints of a routine brain study. Normal visualized paranasal sinuses. Normal calvarium and skull base. Normal visualized soft tissue structures. Normal visualized upper cervical spine. MRI/Brain W/WO Contrast IMPRESSION: Involutional changes of the brain, as described above. Electronically Signed: Alexander Tuttle MD at 18:08 EST , Service support ,
[2019-07-16 12:00] LABS: CREATININE FINGERSTICK 0.9 mg/dL (0.55-1.02); EGFR FINGERSTICK > 60.0000 mL/min (>60)
== END ==
PROVIDERS: Family Provider Internal Medicine; PCP Internal Medicine; Referring Provider Internal Medicine; Visit Provider Internal Medicine
DX: Z86.69 Personal history of other diseases of the nervous system and sense organs (principal); R20.9 Unspecified disturbances of skin sensation; R32 Unspecified urinary incontinence
CPT/HCPCS: 70553; 93880; A9575

== ENCOUNTER → 2020-10-20 16:24 | Outpatient (CLI) | payer OTHER, SELFPAY ==
--- NOTE | 2020-10-20 16:28 | US_ITS ---
STUDY: RENAL ULTRASOUND - COMPLETE REASON FOR EXAM: Female, 50 years old. INCONTINENCE OF URINE IN FEMALE TECHNIQUE: Ultrasound evaluation of the kidneys was performed with real-time and static prieto-scale imaging. COMPARISON: None. FINDINGS: RIGHT KIDNEY: Normal location of the right kidney, which is normal in size. The right kidney measures 9.3 cm. There is a normal cortex of the right kidney. The renal cortex measures 0.7 cm. There is no right renal mass or cyst. There are no right renal calculi. There is no right hydronephrosis. DISTAL RIGHT URETER: There is non-visualization of the distal right ureter. There is no demonstrated right ureterovesical junction calculus. There is a visualized right ureteral jet. LEFT KIDNEY: Normal location of the left kidney, which is normal in size. The left kidney measures 9.7 cm. There is a normal cortex of the left kidney. The renal cortex measures 1.0 cm. There is no left renal mass or cyst. There are no left renal calculi. There is no left hydronephrosis. DISTAL LEFT URETER: There is non-visualization of the distal left ureter. There is no demonstrated left ureterovesical junction calculus. There is a visualized left ureteral jet. BLADDER: The distended urinary bladder has a volume of 35 ml. The empty urinary bladder has a volume of ml. There is a normal wall thickness of the distended urinary bladder. There is no demonstrated mass within the urinary bladder. There are no demonstrated bladder calculi. US/Kidney and Bladder IMPRESSION: Normal ultrasound of the kidneys and urinary bladder. Electronically Signed: Goldy Wilson MD at 8:58 EST Tel , Service support ,
== END ==
PROVIDERS: PCP Internal Medicine; Referring Provider Internal Medicine; Visit Provider Internal Medicine
DX: R32 Unspecified urinary incontinence (principal)
CPT/HCPCS: 76770

== ENCOUNTER → 2021-07-27 14:39 | Outpatient (CLI) | payer OTHER, SELFPAY ==
[2021-07-27 17:45] LABS: Anion Gap 8 (5-15); BUN 15 mg/dL (7-18); BUN/Creat Ratio 13.5 RATIO (10-20); Calcium,Total 8.5 mg/dL (8.5-10.1); Chloride 107 mmol/L (98-107); Creatinine, Serum 1.11 mg/dL (0.55-1.02); EST Glomerular Filtration Rate 55 mL/min (>60); Est Glom Filt Rate - Afr Amer 66 mL/min (>60); Glucose 76 mg/dL (74-106); Potassium 3.9 mmol/L (3.5-5.1); Sodium Level 140 mmol/L (136-145)
== END ==
PROVIDERS: PCP Internal Medicine; Referring Provider Urology; Visit Provider Urology
DX: N17.8 Other acute kidney failure (principal)
CPT/HCPCS: 36415; 80048

== ENCOUNTER → 2021-08-22 | Outpatient (CLI) | payer OTHER, SELFPAY | END | disposition home or self-care (01) | LOC: LABSPEC 10:20 | PROVIDERS: PCP Internal Medicine; Visit Provider Internal Medicine | DX: Z20.822 Contact with and (suspected) exposure to COVID-19 (principal) | CPT/HCPCS: 87635; U0005; U0003 ==

== ENCOUNTER 2022-07-26 07:50 | Outpatient (RCR) | payer OTHER, SELFPAY ==
[2022-07-26 08:05] VITALS: BP 113/74; PULSE 91; TEMP 35.7; BMI 25.0
--- NOTE | 2022-07-26 09:19 | PCM.WC.HP ---
History of Present Illness Date of Service: 07/26/22 Chief Complaint: LLE wound History of Wound: Patient is a 52 y/o female who presents today with left lower extremity wound on lateral aspect of calf. She had squamous cell skin cancer removed on 07/04 via Mohs procedure and it has not healed since then. 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 She was seen by her PCP Dr. Gurrola and has tried utilizing dakins, hibiclens, bacitracin with no improvement over the last few weeks. She was also prescribed Keflex, she has 7 days remaining. She states that she notes some fluid drainage, but never so much that she needs to change her dressing more than once a day. She denies any purulent drainage, foul smell, fevers, chills. She has no history of non-healing wounds. She has no history of any injuries or surgeries to this leg. She does have some varicose veins but does not feel that her legs swell significantly and does not experience any achiness or pain from them at baseline. She does not wear compression. She does take steroids chronically. [facility] Medical History (Updated 07/26/22 @ 12:00 by ESPINOZA Ramos) Acute cholecystitis Cholelithiasis Home Medications bupropion HCl 300 mg 24 hr tablet, extended release 450 mg PO DAILY 07/29/16 [History Last Taken 12/26/18] hydrocortisone 5 mg tablet 5 mg PO QHS 07/29/16 [History Last Taken 12/25/18] hydrocortisone 5 mg tablet 10 mg PO DAILY 07/29/16 [History Last Taken 12/25/18] levothyroxine 88 mcg tablet 88 mcg PO DAILY 07/29/16 [History Last Taken 12/26/18] somatropin 30 mg/3 mL (10 mg/mL) subcutaneous pen injector (Norditropin FlexPro) 8.8 mg SQ QHS 07/29/16 [History Last Taken 12/26/18] ondansetron 4 mg disintegrating tablet 4 mg PO Q8H PRN PRN Nausea #10 tabs 03/01/19 [Rx Last Taken Unknown] hydrocortisone 5 mg tablet (Cortef) 5 mg PO TID 07/26/22 [History Last Taken Unknown] Allergy/AdvReac Type Severity Reaction Status Date / Time Penicillins Allergy Unknown Verified 07/26/22 09:35 Surgical History (Updated 03/14/22 @ 03:47 by Leandro Wagner) S/P laparoscopic cholecystectomy s/p pituitary removal Social History (Updated 01/22/19 @ 14:[address] Guilherme Oliveira MD) Smoking Status: Never smoker ROS Constitutional Constitutional: Denies change in weight, chills, difficulty sleeping, fatigue, fever(s), frequent falls, lethargy, night sweats or weakness Eyes Eyes: Denies blindness, blurry vision, change in vision, eye pain or ptosis ENT HEENT: Denies abnormal hearing, change in voice, hearing loss, loss taste/smell or vertigo Cardiovascular Cardiovascular: Denies abdominal pain, chest pain, claudication, cold extremities, cyanosis, diaphoresis, dyspnea, dyspnea on exertion, fatigue, hypertension, irregular heart rhythm, leg edema, leg ulcers, orthopnea, palpitations, radiating jaw, neck or arm pain or syncope Respiratory/Chest Respiratory/Chest: Denies cough, dyspnea, hemoptysis, nail bed cyanosis, laura-oral cyanosis, portable oxygen @ home, productive cough or wheezing Gastrointestinal Gastrointestinal: Denies abdominal pain, change in bowel habits, change in stool character, coffee ground emesis, melena, rectal bleeding or weight changes Genitourinary Genitourinary: Denies abdominal discomfort, burning urination, difficulty urinating or flank pain Musculoskeletal Musculoskeletal: Denies abnormal gait, difficulty walking, joint swelling, muscle cramps, muscle weakness or numbness Integumentary Integumentary: Denies change in pigmentation, changing lesions, erythema, lesions, rash, skin ulcer, unusual bruising or wounds Neurologic Neurologic: Denies abnormal gait, abnormal movements, abnormal speech, behavior changes, frequent falls, syncope, tingling or weakness Psychiatric Psychiatric: Denies behavioral changes, cognitive impairment or depression Endocrine Endocrinology: Denies change in body appearance, cold intolerance, excessive sweating, flushing, heat intolerance, palpitations, polydipsia, polyphagia or polyuria Hematologic/Lymphatic Hematologic/Lymphatic: Denies anemia, easy bleeding, easy bruising or lymphadenopathy Allergic/Immunologic Allergic/Immunologic: Denies seasonal rhinorrhea, throat swelling, tongue swelling, hives or asthma Vital Signs Vital Signs Vital Signs: 07/26/22 08:05 Temperature 96.2 F L Temperature Source Temporal Pulse Rate 91 Blood Pressure 113/74 Blood Pressure Mean 87 Blood Pressure Source Monitor Weight Weight: 128 lb Body Mass Index (BMI) 25.0 Physical Exam Const alert, oriented x3, no apparent distress, healthy appearing and well nourished General Appearance: cooperative Exam Limitations: no limitations HEENT normocephalic, head/scalp atraumatic and external ears normal Nose: external nose normal Eyes EOMs intact bilaterally General Eye: normal appearance of both eyes Neck General: normal visual inspection and trachea midline; Negative for lymphadenopathy Resp normal respiratory effort, No no use of accessory muscles and clear to auscultation bilaterally Effort and Inspection: able to speak in complete sentences and symmetric chest movement; Negative for stridor, actively coughing, uses accessory muscles or audible wheezes Auscultation: clear to auscultation bilaterally Cardio regular rate, regular rhythm and peripheral pulses 2+ throughout; Negative for no murmurs Extremity normal to inspection, full ROM and normal capillary refill Extremity Narrative: Some varicose and reticular veins noted bilaterally, no significant edema. General Extremity: Negative for calf tenderness Peripheral Pulses: Yes pulses 2+ throughout Skin Skin Narrative: General Skin Exam: Negative for ecchymosis, erythema, petechiae, purpura or pallor Wounds: wounds noted Wound Narrative: LLE wound noted to lateral aspect of calf secondary to surgical removal of SCC. Significant amount of slough present in the wound bed, wound edges with slight epibole noted. No discharge noted. No surrounding erythema, edema, warmth. Hair: normal Nails: normal Neuro oriented x3, CN's II-XII intact bilaterally, moves all extremities, no sensory deficits noted and gait normal Psych mental status grossly normal, thought process normal, cooperative, affect normal, speech normal and activity/motor behavior normal Debridement Note Debridement Note Wound debrided: LLE wound, lateral aspect calf Laterality: Left Type of Debridement: Excisional debridement Anesthesia Used: 5% Lidocaine Gel Depth: Down to and including healthy tissue and in the subcutaneous layer Percentage of wound debrided: 100 Instrument Used: 3mm curette Tissue Removed: slough, devitalized tissue Severity: Fat Layer Exposed Amount of bleeding with debridement: Mild Bleeding Controlled with: Pressure Patient tolerated procedure: Patient tolerated procedure well Post-Debridement Measurements and Additional Note: Post-Debridement Measurements/Treatment WC - Nurse 1 - General Ulcer Assessment Start: 07/26/22 08:03 Freq: Status: Active Protocol: HELIOEXGus Activity Type Activity Date Activity User E-sign Co-sign Detail Recorded Client Recorded Date Recorded By Document 07/26/22 08:05 TAMARA [id number] 07/26/22 08:19 OR 07/26/22 08:05 - Today's Visit Information Type of service Nurse-only Visit Arrival Mode Ambulatory Patient Identification Verified (Name & Yes ) Patient Requires Transmission-Based No Precautions Safety Precautions NA Height and Weight Height 5 ft Weight 128 lb Weight in Pounds 128.0 lbs Weight Measurement Method Standing Scale Body Mass Index (BMI) 25.0 BMI Classification Overweight BSA - Piero 1.54 Vital Signs Temperature (97.8 F-99.1 F) 96.2 F L Temperature Source Temporal Pulse Rate (60-100) 91 Pulse Location Monitor Blood Pressure (90/60-120/80) 113/74 Blood Pressure Mean 87 Source Monitor History Since Last Visit- (Skip if this is Patient's initial visit) Left Footwear Regular Shoe Right Footwear Regular Shoe Pain Scale: 0-10 Numeric Is Patient Pain Free? Yes - Nurse 1 - General Ulcer Measurement Start: 07/26/22 08:03 Freq: Status: Active Protocol: Activity Type Activity Date Activity User E-sign Co-sign Detail Recorded Client Recorded Date Recorded By Document 07/26/22 08:05 OR [id number] 07/26/22 08:19 OR 07/26/22 08:05 Wound Center Nurse 1 #1 L lateral LE -Combined with other wound No -Current Size (cm) - Length 2.4 -Current Size (cm) - Width 2 -Current Size (cm) - Depth 0.4 -Total Square Cm 4.8 -Date of Last Picture (Recall this 07/26/22 field) -Photo Taken Yes -Tunneling No -Undermining/Tunneling No -Circular Undermining No -Change in Wound Grade/Stage No -Exudate Amt Medium -Exudate Type Serosanguineous -Wound Margin Distinct, Outline Attached -Granulation Quality N/A -Slough/Fibrin Yes -Necrosis Amt Large (67-100%) -Necrotic Tissue Type Adherent Slough -Structure Exposed N/A -Texture (Laura-wound Skin Appearance) No Abnormality, Assessed,Not Assessed,Callus -Moisture (Larua-wound Skin Appearance) No Abnormality, Assessed -Color (Laura-wound Skin Appearance) No Abnormality, Assessed -Temperature (Laura-wound Skin No Abnormality Appearance) (Pt Warm) -Tenderness on Palpation (Laura-wound No Skin Appearance) -Ulcer Cleansing Soap and Water -Foul Odor after Cleansing No -Anesthetic Used 5% Lidocaine Gel Lower Limb Edema Present No Right Calf (cm) 37 Right Ankle (cm) 22.5 Left Calf (cm) 35 Left Ankle (cm) 22 WC - Nurse 3 - General Ulcer D/C NN Start: 07/26/22 08:03 Freq: Status: Active Protocol: Activity Type Activity Date Activity User E-sign Co-sign Detail Recorded Client Recorded Date Recorded By Document 07/26/22 09:04 TAMARA [id number] 07/26/22 09:07 TAMARA 07/26/22 09:04 Wound Care Nurse 3 #1 L lateral LE -Ulcer Cleansing Rinsed/ Irrigated with Saline -Foul Odor after Cleansing No -Negative Pressure Wound Therapy N/A -Other Dressing hydrogel -Primary Dressing Covered/Secured with Dry Gauze, Secured with Tape Pain Scale: 0-10 Numeric Is Patient Pain Free? Yes WC - Visit Discharge Discharge Condition Stable Ambulatory Status Ambulatory Transportation Private Auto Accompanied by daughter Medication Reconcilliation completed & Yes provided to patient/care provider Clinical Summary of Care Provided Yes Charges/Coding Wound Center CF Procedures [id number]: [id number] RMVL DEVITAL TIS 20 CM/< Multi Select Codes Wound Center CF Procedures [id number]: [id number] RMVL DEVITAL TIS 20 CM/< Assessment/Plan Assessment/Plan (1) Non-healing wound of left lower extremity: CODE(S): S81.802A - Unspecified open wound, left lower leg, initial encounter PLAN: Plan Patient was evaluated in the wound center and debridement was performed today. Patient tolerated the procedure well overall, still with some remaining adherent slough. Plan to apply Santyl and cover with dry dressing. Also will apply tubigrips to provide some compression. Will change dressing once daily, more often as needed to keep it clean and dry. Patient does have some varicose veins and likely has some underlying venous disease but do not feel further testing is warranted at this point. There are also no signs of active infection, do not feel any cultures are needed at this time. Patient will complete the regimen of Keflex. Encourage patient to increase protein in the diet and elevating leg when possible throughout the day to promote healing. Patient will return to the clinic in 1 week for follow-up wound care. She will return sooner or present to the ED if her symptoms worsen or new symptoms or signs of infection arise.
== END 2022-08-24 23:59 | disposition home or self-care (01) ==
LOC: WC 07:50
PROVIDERS: PCP Internal Medicine; Visit Provider Physician Assistant
DX: S81.802A Unspecified open wound, left lower leg, initial encounter (principal); Z85.828 Personal history of other malignant neoplasm of skin
CPT/HCPCS: 11042; 99213; G0463

== ENCOUNTER → 2023-12-17 | Outpatient (CLI) | payer BC, SELFPAY ==
--- NOTE | 2023-12-17 11:01 | US_ITS ---
INDICATION: abdominal pain pressure EXAMINATION: Ultrasound US Abdomen Complete TECHNIQUE: Blair-scale and color Doppler imaging was performed of the abdomen. COMPARISON: No relevant prior comparison study available FINDINGS: LIVER: The liver is normal in size, shape, and echogenicity. No focal hepatic lesion. No intrahepatic biliary ductal dilatation. There is no free fluid. GALLBLADDER AND BILIARY TREE: Cholecystectomy. The proximal common bile duct measures 0.4 cm, which is within normal limits for the patient''s age. PANCREAS: No focal abnormality is demonstrated in the pancreas. No pancreatic ductal dilatation. RIGHT KIDNEY: The right kidney measures 9.5 cm. No hydronephrosis or nephrolithiasis. No renal mass. LEFT KIDNEY: The left kidney measures 9.8 cm. No hydronephrosis or nephrolithiasis. No renal mass. SPLEEN: The spleen is normal in size and homogeneous in echotexture. The spleen measures 6 cm. VESSELS: Submitted longitudinal images of the intra-abdominal aorta demonstrate no gross abnormalities and are unremarkable. The IVC is patent. US/Abdomen Complete IMPRESSION: No acute sonographic abnormality is demonstrated in the abdomen. Electronically Signed: Iron Carson MD at 14:21 EDT ,
== END | disposition home or self-care (01) ==
LOC: US 10:56
PROVIDERS: PCP Internal Medicine; Referring Provider Internal Medicine; Visit Provider Internal Medicine
DX: R10.11 Right upper quadrant pain (principal)
CPT/HCPCS: 76700

== ENCOUNTER 2024-01-26 16:08 | Outpatient (RCR) | payer BC, SELFPAY ==
--- NOTE | 2024-01-26 18:20 | HP.PTEVAL_ITS ---
Patient's Visit Information Visit Information Visit Information: MELANIE ABRAMS is a 53 year old F referred to Physical Therapy by Dr. Shanika Gurrola MD with a diagnosis of Glut Pain. Date of Evaluation: 01/26/24 Physical Therapist: Juanita Juárez DPT Visit Plan Frequency: 2x /Week Duration: 4 Weeks Plan: Focus on hip and core strength/stabilization- HEP given each time so she has a comprehensive HEP- ideas include- step up to balance, steamboats, inchoworms, SB HEP Given IE: SLS without hip drop, clams, prone hip extn, seated piriformis stretch Subjective Subjective: Patient reports that she has bilateral glut pain- a couple of months- the pain does not radiate- the pain is dull and achy. The pain the comes and goes. Worst: 6/10 Agg: stairs Eases: after someone presses on it really deep. Best: 0/10. She has a different skin sensation in her thoracic spine- she is having an MRI on Friday- she has had that since Sep- violently puking from food poisonings but she does not feel they are related. She feels they are both the same. No N/T down the legs. Lots of stairs at work. Workout: treadmill (3.2) 30 min-no incline- 6 nights a week and walks outside-road- she always walks the same path. She does only arms strengthening. She wears Asics- she changes them every 8 months- and does wear orthotics. Sleep: not disturbed. 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 She feels that her hips are staying the same. PMHx: pit tumor removal Meds: steriods, growth hormine injection, synthroid Objective Objective: Posture: forward head, rounded shoulders- can correct with verbal cues Gait: mild Trendelenburg HR/TR: able SLS: moderate hip drop bilateral- more stable on the left- Left: 10 seconds Right: 5 seconds ROM: WFL in all planes but does have increased discomfort in the gluts bilateral with forward lumbar flexion- also increased tightness with hip IR/ER on the left. Strength: Core: fair minus Hip: Left: Flexion: 20 Extn: 24 (6/10), IR: 25 ER: 28 Abd: 29 Right: Flexion 20 Extn: 34 IR: 32 ER: 25 Abd: 33, Knee: Left: Flexion 19 (6/10) Extn: 43 Right: Flexion 21 (6/10) Extn: 46 Ankle: 5/5 Bilateral Flexibility: Gastroc: moderate Hamstring: moderate, Piriformis: Left: severe, Right: moderate Special Test: LLD: negative, Pelvic Alignment: WNL Balance/Special Test Scores Lower Extremity Functional Score: 76 Goals Goal 1:: Patient will be I with HEP and progression Goal Time Frame: 4-6 Weeks Goal 2:: Patient will SLS for 15 without hip drop Goal Time Frame: 4-6 Weeks Goal 3:: Patient will report no hip pain for 1 week Goal Time Frame: 4-6 Weeks Goal 4:: Patient will report 80% improvement Goal Time Frame: 4-6 Weeks Rehabilitation Potential Physical Therapy Diagnosis: Patient presents with hypomobility- she has decreased LE and core strength/stabilization, flex and muscular endurance leading to pelvis drop with SLS and increased pain with ADL's Anticipated Interventions Patient/Client Instruction: Educate patient on: Benefits of Fitness Program Therapeutic Exercise to Include: Strength training, Endurance training, Balance training, Coordination, Agility training, Body mechanics, Postural training, Flexibilty training, Gait and locomotor training, Neuromotor development, Dynam ic Lumbar Stabilization and Scapular Strength/Stabilization Text: Thank you for the opportunity to evaluate your patient. For Medicare and Medicare HMO plans, please review the plan of care and approve it. It will need to be FAXED BACK to us at [phone] for Medicare purposes. For Medicare only, by signing this I certify the plan of care. Please let me know if there are questions or concerns regarding this plan of care. Physician Signature: Date:
--- NOTE | 2024-03-24 08:49 | HP.PT.NRP ---
Patient Information Patient Information: MELANIE ABRAMS was seen in my office for initial evaluation on 01/26/24. The following Plan of Care was established for this patient: POC Established Initial Frequency: 2x /Week Initial Duration: 4 Weeks Anticipated Interventions Patient/Client Instruction: Educate patient on: Benefits of Fitness Program Therapeutic Exercise to Include: Strength training, Endurance training, Balance training, Coordination, Agility training, Body mechanics, Postural training, Flexibilty training, Gait and locomotor training, Neuromotor development, Dynamic Lumbar Stabilization and Scapular Strength/Stabilization Last Seen Last Seen: This patient was last seen in our office . Pertinent comments regarding their Physical therapy will appear below: Patient has not attended since initial evaluation and is appropriate to be d/c from PT- return to MD for further evaluation. At this point I will be discontinuing this patient from physical therapy. I would be happy to see this patient again in the future if found appropriate by the physician. Thank you! Juanita Juárez, DPT Balance/Gait/Functional tests Balance/Special Test Scores Lower Extremity Functional Score: 76
== END 2024-01-26 19:00 | disposition home or self-care (01) ==
LOC: PT 16:08
PROVIDERS: PCP Internal Medicine; Referring Provider Internal Medicine; Visit Provider Internal Medicine
DX: M54.50 Low back pain, unspecified (principal)
CPT/HCPCS: 97162

== ENCOUNTER → 2024-01-30 | Outpatient (CLI) | payer BC, SELFPAY ==
--- NOTE | 2024-01-30 15:43 | MRI_ITS ---
STUDY: MRI THORACIC SPINE WITHOUT CONTRAST REASON FOR EXAM: Female, 53 years old. Thoracic radiculopathy, SKIN AROUND ABDOMEN DIFFERENT SENSATION, XRAYS TECHNIQUE: Standardized fat and water weighted pulse sequences were obtained in the sagittal and axial planes. COMPARISON: X-ray January 07, 2024 FINDINGS: Normal kyphosis of the thoracic spine. There is no substantial scoliosis. T1-2, T2-3, T3-4, T4-5, T5-6, T6-7, T7-8, T8-9, T9-10, T10-11, : Normal endplates. Normal disc hydration, heights and morphology of the corresponding intervertebral discs. Normal central canal and intervertebral neural foramina at the corresponding levels.There are perineural cysts involving multiple exiting nerve roots. T11-12: Disc space narrowing. Disc bulge. Mild spurring. No canal stenosis. Neural foramina are patent. No acute fracture. Normal visualized thoracic cord. Normal conus medullaris that terminates at the L1 level. The soft tissue structures are unremarkable. MRI/Spine Thoracic (Routine) IMPRESSION: Mild degenerative change. No disc herniation. No canal stenosis or foraminal narrowing. Small perineural cysts of using nerve roots at multiple levels. Electronically Signed: Aric Robles MD at 13:25 EDT ,
== END | disposition home or self-care (01) ==
LOC: MRI 15:41
PROVIDERS: PCP Internal Medicine; Referring Provider Internal Medicine; Visit Provider Internal Medicine
DX: M54.14 Radiculopathy, thoracic region (principal)
CPT/HCPCS: 72146

== ENCOUNTER → 2025-06-03 | Outpatient (CLI) | payer BC, SELFPAY ==
[2025-06-03 11:41] LABS: Free T3 2.7 pg/mL (2.18-3.98)
== END | disposition home or self-care (01) ==
LOC: LAB 10:43
PROVIDERS: PCP Internal Medicine; Referring Provider Internal Medicine; Visit Provider Internal Medicine
DX: E03.9 Hypothyroidism, unspecified (principal)
CPT/HCPCS: 84439; 84481

== ENCOUNTER → 2025-06-08 | Outpatient (CLI) | payer BC, SELFPAY ==
--- NOTE | 2025-06-08 10:32 | MRI_ITS ---
PROCEDURE: BRAIN W/WO CONTRAST 06/08/2025 REASON FOR EXAM: CLONUS TECHNIQUE: Procedure Code: [id number] Modality: MR Procedure: BRAIN W/WO CONTRAST Multiplanar and multisequence images were obtained. CONTRAST: Clariscan VOLUME: 11 mL COMPARISON: MRI brain with and without contrast, 07/16/2019 FINDINGS: There is mild diffuse cerebral atrophy with concomitant ventriculomegaly. There is again noted a small area of abnormal periventricular white matter signal, adjacent to the atrium of the right lateral ventricle. This appears somewhat larger when compared with the prior exam. There is no abnormal intracranial contrast enhancement. There is a normal sulcal pattern and gyral configuration. There is no evidence of acute intracranial hemorrhage or infarction. The laird-white differentiation is well preserved. There is no evidence of restricted diffusion. The basilar cisterns are normal. There are normal flow voids demonstrated in the recognized intracranial vessels. The cerebellum and brainstem are unremarkable. The cerebellar pontine angles are normal. The craniovertebral junction is normal. The sella and suprasellar regions are normal. The orbits and retro-orbital regions are unremarkable. There is nasal septal deviation to the left. Status post extensive FESS. The mastoid air cells are clear. There is normal bone marrow signal in the skull base and calvarium. MRI/Brain W/WO Contrast IMPRESSION: 1. Mild cerebral atrophy. No significant change. 2. Abnormal periventricular white matter signal, adjacent to the atrium of the right lateral ventricle. This area was present previously but appears mildly enlarged. This is nonspecific, but can be seen i n demyelinating disease. 3. There is no abnormal intracranial contrast enhancement. 4. Status post FESS, no significant change. Reading Location: [place] [id number]
--- NOTE | 2025-06-08 10:32 | MRI_ITS ---
PROCEDURE: SPINE CERVICAL W/WO CONTRAST 06/08/2025 REASON FOR EXAM: DEMYELINATING DISEASE OF THE SPINAL CORD TECHNIQUE: Procedure Code: [id number] Modality: MR Procedure: SPINE CERVICAL W/WO CONTRAST Multiplanar and multisequence images were obtained with intravenous gadolinium- based contrast administration. CONTRAST: Clariscan VOLUME: 11 mL COMPARISON: MRI cervical spine 11/16/2016. FINDINGS: Vertebrae: Preserved in height and signal. Alignment: Retrolisthesis C4 on C5 by 3 mm and C5 on C6 by 2 mm. Spinal Cord: Worsening nonenhancing diffuse spinal lesions on T2 compared to MRI 11/16/2016. The largest lesion is at the anterior left aspect of the spinal cord posterior to C7 measures 12.3 mm in craniocaudal dimension. C2-3: 3 mm disc osteophyte complex. Facet joint arthropathy. No significant foraminal or canal stenosis. C3-4: Disc osteophyte complex measures 2 mm. Facet joint arthropathy. No significant foraminal or canal stenosis. C4-5: Left paracentral disc osteophyte complex measures 3.5 mm indents upon the thecal sac. Severe canal stenosis. Facet joint arthropathy. Moderate left and mild right foramina stenosis. C5-6: Disc desiccation. Disc osteophyte complex. Facet joint arthropathy. Uncovertebral hypertrophy severe left and moderate right foramina stenosis. Moderate canal stenosis. C6-7: Disc desiccation. Uncovertebral hypertrophy. Moderate bilateral foramina stenosis. Mild canal stenosis. Disc bulge. C7-T1: Disc bulge. Uncovertebral hypertrophy. Moderate bilateral foramina stenosis. Mild canal stenosis. Postcontrast images: Unremarkable. MRI/Spine Cervical W/WO Contrast IMPRESSION: Worsening nonenhancing diffuse spinal lesions on T2 compared to MRI 11/16/2016. The largest lesion is at the anterior left aspect of the spinal cord posterior to C7 measures 12.3 mcm in craniocaudal dimension consistent with demyelinating disease like multiple sclerosis. Multilevel degenerate changes predominantly at C4-C5 where there is severe lavon l stenosis and moderate left bilateral foramina stenosis. The remainder levels are as detailed. Reading Location: [id number]
== END | disposition home or self-care (01) ==
LOC: MRI 10:17
PROVIDERS: PCP Internal Medicine; Referring Provider Internal Medicine; Visit Provider Internal Medicine
DX: G37.9 Demyelinating disease of central nervous system, unspecified (principal); R25.8 Other abnormal involuntary movements
CPT/HCPCS: 70553; 72156; A9575; A4216

== ENCOUNTER → 2025-06-29 | Outpatient (CLI) | payer BC, SELFPAY ==
--- NOTE | 2025-06-29 10:29 | MRI_ITS ---
PROCEDURE: SPINE LUMBAR W/WO CONTRAST 06/29/2025 REASON FOR EXAM: CLONUS TECHNIQUE: Procedure Code: [id number] Modality: MR Procedure: SPINE LUMBAR W/WO CONTRAST Multiplanar and multisequence images were obtained without and with intravenous gadolinium-based contrast administration. CONTRAST: Clariscan VOLUME: 11 mL COMPARISON: None FINDINGS: Vertebrae: Vertebral body height is normal. Signal of the vertebral bodies is normal except for a hemangioma in the T12 vertebral body. This is benign. Alignment: Normal lumbar lordosis. Grade 1 anterolisthesis L3 with respect to L4 of approximately 3.8 mm. Grade 1 anterolisthesis L4 on L5 of approximately 4.5 mm. Conus Medullaris: Terminates at L1. No abnormal signal. T12-L1: Normal L1-2: Normal L2-3: Normal L3-4: Mild loss of disc height. Mild, diffuse disc bulge and disc uncovering. Moderate facet hypertrophy and mild thickening of ligamentum flavum. L4-5: Mild loss of disc height. Mild, diffuse disc bulge and disc uncovering. [id number] facet hypertrophy on the right. Mild facet hypertrophy on the left with facet joint effusion and synovitis. Borderline central stenosis to 9 mm AP. Bilateral exit foraminal narrowing, [id number]-left. Correlate with L4 radiculopathy. L5-S1: Minimal, diffuse disc bulge. Postcontrast: No abnormal enhancement. MRI/Spine Lumbar W/WO Contrast IMPRESSION: 1. Spondylolisthesis L3 on L4 and L4 on L5 with degenerative disc disease as o utlined above. Reading Location: [id number]
--- NOTE | 2025-06-29 10:29 | MRI_ITS ---
PROCEDURE: SPINE THORACIC W/WO CONTRAST 06/29/2025 REASON FOR EXAM: DEMYELINATING DISEASE OF THE SPINAL CORD TECHNIQUE: Thoracic spine MRI without and with intravenous gadolinium-based contrast. Multiplanar and multisequence images were obtained. CONTRAST: VOLUME: 11 cc Clariscan FINDINGS: T1-2, there is no spinal stenosis or foraminal narrowing T2-3, there is no spinal stenosis or foraminal narrowing T3-4, there is no spinal stenosis or foraminal narrowing T4-5, there is no spinal stenosis or foraminal narrowing T5-6, there is no spinal stenosis or foraminal narrowing T6-7, there is no spinal stenosis or foraminal narrowing T7-8, there is no spinal stenosis or foraminal narrowing T8-9, there is no spinal stenosis or foraminal narrowing T9-10, there is no spinal stenosis or foraminal narrowing T10-11, there is no spinal stenosis or foraminal narrowing T11-12, there is no spinal stenosis or foraminal narrowing T12-L1, there is no spinal stenosis or foraminal narrowing Vertebral body height and alignment are well maintained. There is a 1.9 cm hemangioma in the T12 vertebral body, with benign features vertebral body marrow signal is normal. 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 There is no significant disc protrusion, spinal stenosis or neural foraminal stenosis identified in the thoracic region. The thoracic cord shows normal signal characteristics. The adjacent soft tissues are unremarkable. No evidence of occult traumatic injury is seen. There are no suspicious enhancing lesions. MRI/Spine Thoracic W/WO Contrast IMPRESSION: There is no spinal stenosis or foraminal narrowing identified in the thoracic r egion. There are no suspicious lesions identified in the thoracic cord. Reading Location: [facility]
== END | disposition home or self-care (01) ==
LOC: MRI 10:23
PROVIDERS: PCP Internal Medicine; Referring Provider Internal Medicine; Visit Provider Internal Medicine
DX: G37.9 Demyelinating disease of central nervous system, unspecified (principal)
CPT/HCPCS: 72157; 72158; A9575